=== PATIENT | female | born 1990 | race Caucasian/White ===

== ENCOUNTER 2019-04-14 21:39 | Emergency (ER) | payer BC, SELFPAY ==
[2019-04-14] MEDS ORDERED: KETOROLAC 30 MG/ML INJ ONE (22:02)
[2019-04-14] MEDS ORDERED: ONDANSETRON 4 MG/2 ML VIAL ONE (22:02)
[2019-04-14 22:12] LABS: Absolute Lymphocytes (CBC) 2.6 K/uL (0.7-4.9); Basophils % 0.4 % (0-1.3); Hematocrit 43.2 % (36.0-45.0); Lymphocytes % 17.7 % (15.3-44.8); RBC Red Blood Cell Count 4.83 M/uL (3.86-4.86)
[2019-04-14 22:22] LABS: Urine Appearance CLOUDY; Urine Bilirubin NEGATIVE (NEG); Urine Blood 3+ (NEG); Urine Glucose NEGATIVE (NEG); Urine Protein 3+ (NEG); Urine Specific Gravity 1.015 (1.005-1.030); Urine Urobilinogen 0.2 mg/dL (0.2-1.0)
[2019-04-14 22:23] LABS: Urine Color RED
[2019-04-14 22:28] LABS: Albumin 4.4 g/dL (3.4-5.0); Bilirubin Direct 0.1 mg/dL (0-0.2); Bilirubin Total 0.4 mg/dL (0.2-1.0); Potassium 3.7 mmol/L (3.5-5.1); Protein, Total 8.7 g/dL (6.4-8.2)
[2019-04-14 22:30] LABS: Urine Bacteria 20-50 /HPF (<20); Urine Culture Reflex Order REFLEXED; Urine RBC TNTC /HPF (NONE SEEN)
[2019-04-14 22:31] LABS: Urine Mucus 1+ /HPF (NONE SEEN)
[2019-04-14] MEDS ORDERED: NA CHLORIDE 0.9% 100 ML IV ONE (23:58)
[2019-04-14] MEDS ORDERED: CEFTRIAXONE 1000 MG/VIAL ONE (23:58)
--- NOTE | 2019-04-15 00:03 | ER ---
Nurse's Notes [facility] Name: Julisa Keller Age: 28 yrs Sex: Female : 1990 Arrival Date: 04/14/2019 Time: 21:44 Bed 5 Private MD: Diagnosis: Acute cystitis with hematuria Presentation: 04/14 22:00 Presenting complaint: Patient states: lower back pain, nausea and urinary frequency x 2 tl2 days. reports blood in urine. Denies fever. Transition of care: patient was not received from another setting of care. Onset of symptoms was April 12, 2019. Risk Assessment: Do you want to hurt yourself or someone else? Patient reports no desire to harm self or others. Initial Sepsis Screen: Does the patient meet any 2 criteria? No. Patient's initial sepsis screen is negative. Does the patient have a suspected source of infection? No. Patient's initial sepsis screen is negative. Care prior to arrival: None. 22:00 Method Of Arrival: Ambulatory tl2 22:00 Acuity: CHRISTI 3 tl2 Triage Assessment: 22:09 General: Appears in no apparent distress. uncomfortable, Behavior is calm, cooperative, tl2 appropriate for age. Pain: Complains of pain in left mid back and right mid back. Pain: Pain currently is 8 out of 10 on a pain scale. Neuro: Level of Consciousness is awake, alert, obeys commands, Oriented to person, place, time, situation. Cardiovascular: Denies chest pain. Respiratory: Airway is patent Respiratory effort is even, unlabored, Respiratory pattern is regular, symmetrical. GI: Reports nausea. : Reports urinary frequency. Derm: Skin is pink, warm \T\ dry. 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 - Social history:: Smoking status: Patient/guardian denies using tobacco. - Ebola Screening: : No symptoms or risks identified at this time. Screenin:12 Abuse screen: Denies threats or abuse. Nutritional screening: No deficits noted. tl2 Tuberculosis screening: No symptoms or risk factors identified. Fall Risk None identified. Assessment: 22:09 General: see triage assessment. tl2 23:26 Reassessment: Patient appears in no apparent distress at this time. Patient and/or tl2 family updated on plan of care and expected duration. Pain level reassessed. Patient is alert, oriented x 3, equal unlabored respirations, skin warm/dry/pink. Patient states feeling better. 04/15 00:53 Reassessment: Patient appears in no apparent distress at this time. Patient and/or tl2 family updated on plan of care and expected duration. Pain level reassessed. Patient is alert, oriented x 3, equal unlabored respirations, skin warm/dry/pink. pt verbalized understanding of discharge instructions, need for follow up and prescription usage Patient states feeling better. Vital Signs: 04/14 22:09 BP 124 / 77; Pulse 62; Resp 18; Pulse Ox 100% on R/A; Weight 74.84 kg; Height 5 ft. 4 tl2 in. (162.56 cm); Pain 8/10; 23:03 Temp 98.4(O); ar5 23:26 BP 117 / 61; Pulse 78; Resp 18; Pulse Ox 100% on R/A; tl2 04/15 00:53 BP 111 / 60; Pulse 71; Resp 18; Pulse Ox 100% on R/A; Pain 2/10; tl2 04/14 22:09 Body Mass Index 28.32 (74.84 kg, 162.56 cm) tl2 ED Course: 04/14 21:44 Patient arrived in ED. es 21:47 Ten Teixeira PA is PHCP. jr8 21:47 Laurent Ryder MD is Attending Physician. jr8 21:55 Pat Coffman RN is Primary Nurse. tl2 22:00 Inserted saline lock: 22 gauge in right forearm, using aseptic technique. Blood tl2 collected. 22:09 Triage completed. tl2 22:09 Arm band placed on right wrist. tl2 22:12 Patient has correct armband on for positive identification. Bed in low position. Call tl2 light in reach. Side rails up X 1. 22:38 Radiology exam delayed due to test not completed at this time. mw3 23:03 CT Abd/Pelvis - IV Contrast Only In Process Unspecified. EDMS 04/15 00:53 No provider procedures requiring assistance completed. IV discontinued, intact, tl2 bleeding controlled, No redness/swelling at site. Pressure dressing applied. Administered Medications: 04/14 22:05 Drug: TORadol - Ketorolac 15 mg Route: IVP; Site: right forearm; rv 23:00 Follow up: Response: No adverse reaction; Pain is decreased tl2 22:06 Drug: Zofran 4 mg Route: IVP; Site: right forearm; rv 23:00 Follow up: Response: No adverse reaction tl2 04/15 00:05 Drug: Rocephin - (cefTRIAXone) 2 grams Route: IVPB; Infused Over: 30 mins; Site: right tl2 forearm; 00:30 Follow up: IV Status: Completed infusion; IV Intake: 100ml tl2 Intake: 00:30 IV: 100ml; Total: 100ml. tl2 Outcome: 00:02 Discharge ordered by MD. toure 00:53 Discharged to home ambulatory. tl2 00:53 Condition: stable 00:53 Discharge instructions given to patient, Instructed on discharge instructions, follow up and referral plans. medication usage, Demonstrated understanding of instructions, follow-up care, medications, Prescriptions given X 2. 00:55 Patient left the ED. tl2 Signatures: Dispatcher [employer] EDMS Mariel Ya Josh, PA PA jr8 Pat Coffman RN RN tl2 Krissy Solorzano 3 Mario Stone RN RN Arianne Mckeon ar5
--- NOTE | 2019-04-15 00:03 | EDPHYS ---
Physician Documentation [facility] Name: Julisa Keller Age: 28 yrs Sex: Female : 1990 Arrival Date: 04/14/2019 Time: 21:44 Bed 5 Private MD: ED Physician Laurent Ryder HPI: 04/14 22:10 This 28 yrs old Female presents to ER via Ambulatory with complaints of jr8 Abdominal Pain, Flank Pain, Back Pain. 22:10 The patient presents with pain that is acute. The symptoms are located in the left mid jr8 back and right mid back. Onset: The symptoms/episode began/occurred acutely, today. The pain does not radiate. Associated signs and symptoms: Pertinent positives: dysuria. Modifying factors: The patient symptoms are alleviated by nothing, the patient symptoms are aggravated by nothing. Severity of symptoms: At their worst the symptoms were moderate, in the emergency department the symptoms are unchanged. The patient has not experienced similar symptoms in the past. The patient has not recently seen a physician. patient stated that she started with urgency and frequency for the past couple of days. Now had acute mid back pain bilaterally radiating to abdomen . 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 - Social history:: Smoking status: Patient/guardian denies using tobacco. - Ebola Screening: : No symptoms or risks identified at this time. ROS: 22:10 Eyes: Negative for injury, pain, redness, and discharge, ENT: Negative for injury, jr8 pain, and discharge, Neck: Negative for injury, pain, and swelling, Cardiovascular: Negative for chest pain, palpitations, and edema, Respiratory: Negative for shortness of breath, cough, wheezing, and pleuritic chest pain, MS/Extremity: Negative for injury and deformity, Skin: Negative for injury, rash, and discoloration, Neuro: Negative for headache, weakness, numbness, tingling, and seizure. 22:10 Abdomen/GI: Positive for abdominal pain, nausea, Negative for vomiting, diarrhea, constipation, abdominal cramps, abdominal distension, anorexia, dysphagia, hematemesis, black/tarry stool, rectal pain, rectal bleeding, bowel incontinence, flatulence. 22:10 Back: Positive for pain at rest, flank pain, bilaterally. Exam: 22:10 Eyes: Pupils equal round and reactive to light, extra-ocular motions intact. Lids and jr8 lashes normal. Conjunctiva and sclera are non-icteric and not injected. Cornea within normal limits. Periorbital areas with no swelling, redness, or edema. ENT: Nares patent. No nasal discharge, no septal abnormalities noted. Tympanic membranes are normal and external auditory canals are clear. Oropharynx with no redness, swelling, or masses, exudates, or evidence of obstruction, uvula midline. Mucous membranes moist. Neck: Trachea midline, no thyromegaly or masses palpated, and no cervical lymphadenopathy. Supple, full range of motion without nuchal rigidity, or vertebral point tenderness. No Meningismus. Cardiovascular: Regular rate and rhythm with a normal S1 and S2. No gallops, murmurs, or rubs. Normal PMI, no JVD. No pulse deficits. Respiratory: Lungs have equal breath sounds bilaterally, clear to auscultation and percussion. No rales, rhonchi or wheezes noted. No increased work of breathing, no retractions or nasal flaring. Back: No spinal tenderness. No costovertebral tenderness. Full range of motion. Skin: Warm, dry with normal turgor. Normal color with no rashes, no lesions, and no evidence of cellulitis. MS/ Extremity: Pulses equal, no cyanosis. Neurovascular intact. Full, normal range of motion. Neuro: Awake and alert, GCS 15, oriented to person, place, time, and situation. Cranial nerves II-XII grossly intact. Motor strength 5/5 in all extremities. Sensory grossly intact. Cerebellar exam normal. Normal gait. 22:10 Abdomen/GI: Inspection: abdomen appears normal, Bowel sounds: active, all quadrants, Palpation: soft, in all quadrants, nontender, in all quadrants, Indicators: McBurney's point is not tender, To's sign is negative, Rovsing's sign is negative, Liver: tenderness, is not appreciated. Vital Signs: 22:09 BP 124 / 77; Pulse 62; Resp 18; Pulse Ox 100% on R/A; Weight 74.84 kg; Height 5 ft. 4 tl2 in. (162.56 cm); Pain 8/10; 23:03 Temp 98.4(O); ar5 23:26 BP 117 / 61; Pulse 78; Resp 18; Pulse Ox 100% on R/A; tl2 04/15 00:53 BP 111 / 60; Pulse 71; Resp 18; Pulse Ox 100% on R/A; Pain 2/10; tl2 04/14 22:09 Body Mass Index 28.32 (74.84 kg, 162.56 cm) tl2 MDM: 04/14 21:47 Patient medically screened[address] [facility] 23:58 Data reviewed: vital signs, nurses notes, lab test result(s), radiologic studies, CT jr8 scan. Data interpreted: Pulse oximetry: on room air is 100 %. Interpretation: normal. Counseling: I had a detailed discussion with the patient and/or guardian regarding: the historical points, exam findings, and any diagnostic results supporting the discharge/admit diagnosis, lab results, radiology results, the need for outpatient follow up, a family practitioner, to return to the emergency department if symptoms worsen or persist or if there are any questions or concerns that arise at home. 04/14 21:54 Order name: Basic Metabolic Panel; Complete Time: 22:[address] [facility] 04/14 21:54 Order name: CBC with Diff; Complete Time: 22:[address] [facility] 04/14 21:54 Order name: Creatinine for Radiology; Complete Time: 22:[address] [facility] 04/14 21:54 Order name: Hepatic Function; Complete Time: 22:[address] [facility] 04/14 21:54 Order name: Lipase; Complete Time: 22:[address] [facility] 04/14 21:54 Order name: IV Saline Lock; Complete Time: 22:[address] [facility] 04/14 22:11 Order name: Urinalysis W/Microscopic; Complete Time: 22:35 [facility] 04/14 22:28 Order name: CT Abd/Pelvis - IV Contrast Only [facility] 04/14 22:32 Order name: Urine Culture [facility] 04/14 21:54 Order name: Labs collected and sent; Complete Time: 22:[address] [facility] 04/14 21:54 Order name: Urine Test (obtain specimen); Complete Time: 22:[address] [facility] 08/03 21:54 Order name: Urine Dipstick-Ancillary (obtain specimen); Complete Time: 22:07 jr8 Administered Medications: 22:05 Drug: TORadol - Ketorolac 15 mg Route: IVP; Site: right forearm; rv 23:00 Follow up: Response: No adverse reaction; Pain is decreased tl2 22:06 Drug: Zofran 4 mg Route: IVP; Site: right forearm; rv 23:00 Follow up: Response: No adverse reaction tl2 04/15 00:05 Drug: Rocephin - (cefTRIAXone) 2 grams Route: IVPB; Infused Over: 30 mins; Site: right tl2 forearm; 00:30 Follow up: IV Status: Completed infusion; IV Intake: 100ml tl2 Disposition: 04/15/19 00:02 Discharged to Home. Impression: Acute cystitis with hematuria. - Condition is Stable. - Discharge Instructions: Urinary Tract Infection, Adult. - Prescriptions for Pyridium 200 mg Oral Tablet - take 1 tablet by ORAL route every 8 hours for 3 days; 9 tablet. Macrobid 100 mg Oral Capsule - take 1 capsule by ORAL route every 12 hours for 7 days; 14 capsule. - Medication Reconciliation Form, Thank You Letter, Antibiotic Education, Prescription Opioid Use form. - Follow up: Private Physician; When: 2 - 3 days; Reason: Recheck today's complaints, Continuance of care, Re-evaluation by your physician. - Problem is new. - Symptoms have improved. Addendum: 04/16/2019 09:23 Co-signature as Attending Physician, Laurent Ryder MD I agree with the assessment and c capone plan of care. Signatures: Dispatcher [employer] Laurent Gutierrez MD MD cha Roszak, Josh, PA PA jr8 Pat Coffman RN RN tl2 Mario Stone, CAYETANO RN rv Corrections: (The following items were deleted from the chart) 04/14 22:11 22:04 URINALYSIS+U.LAB.BRZ ordered. [facility] 22:11 22:04 UA MICROSCOPIC+U.LAB.BRZ ordered. [facility] 04/15 00:55 00:02 04/15/2019 00:02 Discharged to Home. Impression: Acute cystitis with hematuria. tl2 Condition is Stable. Forms are Medication Reconciliation Form, Thank You Letter, Antibiotic Education, Prescription Opioid Use. Follow up: Private Physician; When: 2 - 3 days; Reason: Recheck today's complaints, Continuance of care, Re-evaluation by your physician. Problem is new. Symptoms have improved. jr8
--- NOTE | 2019-04-16 13:25 | RAD REPORT ---
EXAM DESCRIPTION: CT - Abdomen Pelvis W Contrast - 04/14/2019 11:44 pm CLINICAL HISTORY: The patient is 28 years old and is Female; ABD PAIN TECHNIQUE: Axial computed tomography images of the abdomen and pelvis with intravenous contrast. S agittal and coronal reformatted images were created and reviewed. This CT exam was performed using one or more of the following dose reduction techniques: automated exposure control, adjustment of t he mA and/or kV according to patient size, and/or use of iterative reconstruction technique. COMPARISON: No relevant prior studies available. FINDINGS: LUNG BASES: Unremarkable. No mass. No consolidation. ABDOMEN: LIVER: Unremarkable. No mass. GALLBLADDER AND BILE DUCTS: The gallbladder is contracted. PANCREAS: No ductal dilation. No mass. SPLEEN: Unremarkable. ADRENALS: Unremarkable. No mass. KIDNEYS AND URETERS: Mild urothelial thickening of both ureters is noted. The kidneys enhance symmetrically. No obstructing renal or ureteral calculus is seen. STOMACH AND BOWEL: The stomach is distended with food contents. The small bowel is normal in shola iber. Stool is present throughout colon. There is no mucosal thickening or evidence of bowel obstruct ion. PELVIS: APPENDIX: The appendix is normal in caliber without surrounding inflammation. BLADDER: Mild diffuse bladder wall thickening with surrounding inflammation is present. REPRODUCTIVE: Unremarkable as visualized. ABDOMEN and PELVIS: INTRAPERITONEAL SPACE: Unremarkable. No free air. No significant fluid collection. BONES/JOINTS: No acute fracture. SOFT TISSUES: The soft tissues are normal. VASCULATURE: Unremarkable. No abdominal aortic aneurysm. LYMPH NODES: Unremarkable. No enlarged lymph nodes. IMPRESSION: Findings suggestive of cystitis and bilateral ureteritis. Electronically signed by: Jessica Preciado MD 04/14/2019 11:24 PM CDT Due to temporary technical issues with the PACS/Fluency reporting system, reports are being signed by the in house radiologist as a courtesy to ensure prompt reporting. The interpreting radiologist is f ully responsible for the content of the report.
== END 2019-04-15 00:55 | disposition home or self-care (01) ==
LOC: ER 21:39
DX: N30.00 Acute cystitis without hematuria (principal)
CPT/HCPCS: 36415; 74177; 80048; 80076; 81001; 83690; 85025; 87077; 87086; 87088; 87186; 96365; 96375; 99284; J2405; Q9967

== ENCOUNTER 2020-05-23 08:36 | Emergency (ER) | payer OTHER, SELFPAY ==
--- OUTSIDE RECORDS SUMMARY | 2020-05-23 08:49 | XMS REPORT | Continuity of Care Document ---
:1990 Author Organization [facility] t Address [address] [place] [address] Care Team Providers Name Role Phone Brandy Nugent Attending Clinician Problems This patient has no known problems. Allergies, Adverse Reactions, Alerts This patient has no known allergies or adverse reactions. Medications This patient has no known medications. Procedures This patient has no known procedures. 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 [id number] MATERNAL [id number] & CHILD [address] [place] [address] Results This patient has no known results.
[2020-05-23] MEDS ORDERED: ACETAMINOPHEN 500 MG TAB ONE (10:10)
[2020-05-23] MEDS ORDERED: ONDANSETRON 4 MG (ODT) TAB ONE (10:10)
--- NOTE | 2020-05-23 10:15 | RAD REPORT ---
EXAM DESCRIPTION: CT - Head Brain Wo Cont - 05/23/2020 10:03 am CLINICAL HISTORY: HEADACHE Headache, drowsiness COMPARISON: No comparisons TECHNIQUE: All CT scans are performed using dose optimization technique as appropriate and may inclu de automated exposure control or mA/KV adjustment according to patient size. FINDINGS: No intracranial hemorrhage, hydrocephalus or extra-axial fluid collection.No areas of brai n edema or evidence of midline shift. The paranasal sinuses and mastoids are clear. The calvarium is intact. IMPRESSION: No acute intracranial abnormality.
--- NOTE | 2020-05-23 10:30 | ER ---
Nurse's Notes [facility] Name: Julisa Keller Age: 29 yrs Sex: Female : 1990 Arrival Date: 05/23/2020 Time: 08:42 Bed 19 Private MD: Diagnosis: Headache Presentation: 05/23 08:47 Chief complaint: Patient states: Woke up with R sided headache. Described as throbbing. ss Pt reports she took 800 mg Ibuprofen this morning, but vomited right after. Coronavirus screen: Client denies travel out of the [place] in the last 14 days. Ebola Screen: Patient denies exposure to infectious person. Patient denies travel to an Ebola-affected area in the 21 days before illness onset. Initial Sepsis Screen: Does the patient meet any 2 criteria? No. Patient's initial sepsis screen is negative. Does the patient have a suspected source of infection? No. Patient's initial sepsis screen is negative. Risk Assessment: Do you want to hurt yourself or someone else? Patient reports no desire to harm self or others. Onset of symptoms was May 23, 2020. 08:47 Method Of Arrival: Ambulatory ss 08:47 Acuity: CHRISTI 3 ss Historical: - Allergies: 08:50 No Known Allergies; ss - Home Meds: 08:50 None [Active]; ss - PMHx: 08:50 None; ss - PSHx: 08:50 None; ss - Immunization history:: Adult Immunizations unknown. - Social history:: Smoking status: Patient denies any tobacco usage or history of. Screenin:36 Abuse screen: Denies threats or abuse. Denies injuries from another. Nutritional ss screening: No deficits noted. Tuberculosis screening: Never had TB. Fall Risk None identified. Assessment: 09:36 General: Appears uncomfortable, Behavior is calm, cooperative, appears uncomfortable, ss but seems in good spirits. Is joking with ED staff.. Pain: Complains of pain in forehead, right frontal area, right side of the back of head and right temporal area Pain currently is 6 out of 10 on a pain scale. Quality of pain is described as throbbing, Pain began "woke me up this morning" Is continuous, Aggravated by light, leaning foward. Neuro: Level of Consciousness is awake, alert, obeys commands, Oriented to person, place, time, situation, Infant Nanny are equal bilaterally Moves all extremities. Full function Gait is steady, Speech is normal, Facial symmetry appears normal, Pupils are PERRLA, Denies blurred vision dizziness. Cardiovascular: Capillary refill < 3 seconds is brisk in bilateral fingers Patient's skin is warm and dry. Respiratory: Airway is patent Respiratory effort is even, unlabored, Respiratory pattern is regular, symmetrical. GI: Reports nausea, vomiting, vomit x 1 after self medicating with ibuprofen this AM Patient currently denies diarrhea. : No signs and/or symptoms were reported regarding the genitourinary system. EENT: Oral mucosa is moist. Derm: Skin is intact, is healthy with good turgor, Skin is dry, Skin is pink, warm \\T\\ dry. normal. Musculoskeletal: Range of motion: intact in all extremities. 10:02 Reassessment: Pt currently in CT. sv 10:50 Reassessment: Went to discharge the pt and she is asking for pain medication. States sv that the Tylenol hasn't worked and the headache is getting worse. Informed Laurent REA, medication ordered. 11:00 Reassessment: Pt waiting IM shot time before discharge. sv 11:20 Reassessment: Patient appears in no apparent distress at this time. No changes from sv previously documented assessment. Patient and/or family updated on plan of care and expected duration. Pain level reassessed. Patient is alert, oriented x 3, equal unlabored respirations, skin warm/dry/pink. Vital Signs: 08:47 BP 131 / 76; Pulse 74; Resp 16; Temp 98.5(TE); Pulse Ox 99% on R/A; Weight 102.06 kg; ss Height 5 ft. 4 in. (162.56 cm); Pain 6/10; 08:47 Body Mass Index 38.62 (102.06 kg, 162.56 cm) ED Course: 08:42 Patient arrived in ED. mr 08:49 Triage completed. ss 08:50 Arm band placed on right wrist. ss 09:34 Laurent Brar PA is PHCP. cp 09:34 Marcin Brothers MD is Attending Physician. cp 09:35 Julisa Da Silva RN is Primary Nurse. ss 09:36 Patient has correct armband on for positive identification. Bed in low position. Call ss light in reach. 10:02 Primary Nurse role handed off by Julisa D aSilva, CAYETANO sv 10:02 Sandra Rubio, CAYETANO is Primary Nurse. sv 10:04 CT Head Brain wo Cont In Process Unspecified. EDMS 11:20 No provider procedures requiring assistance completed. Patient did not have IV access sv during this emergency room visit. Administered Medications: 10:15 Drug: Zofran (Ondansetron) 4 mg Route: PO; sv 10:57 Follow up: Response: No adverse reaction sv 10:16 Drug: Tylenol 1000 mg Route: PO; sv 10:57 Follow up: Response: No adverse reaction sv 10:57 Drug: TORadol 60 mg Route: IM; Site: left gluteus; sv 11:20 Follow up: Response: No adverse reaction sv Outcome: 10:29 Discharge ordered by MD. cp 11:20 Patient left the ED. sv 11:20 Discharged to home ambulatory. sv 11:20 Condition: stable 11:20 Discharge instructions given to patient, Instructed on discharge instructions, follow up and referral plans. medication usage, Demonstrated understanding of instructions, follow-up care, medications, Prescriptions given X 2. Signatures: Dispatcher [employer] EDPR Sandra Rubio, CAYETANO MONTEIRO Mariangel Hearn mr Julisa Da Silva, Laurent De La Torre RN, PA PA cp
--- NOTE | 2020-05-23 10:30 | EDPHYS ---
Physician Documentation [facility] Name: Julisa Keller Age: 29 yrs Sex: Female : 1990 Arrival Date: 05/23/2020 Time: 08:42 Bed 19 Private MD: ED Physician Marcin Brothers HPI: 05/23 09:45 This 29 yrs old Female presents to ER via Ambulatory with complaints of cp Headache. 09:45 The patient complains of pain to the right side of head. Onset: The symptoms/episode cp began/occurred this morning, upon awakening. Associated signs and symptoms: Pertinent positives: nausea, Photophobia vomiting, tingling of hands. 09:45 Severity of symptoms: in the emergency department the pain a " 7" out of "10". cp Historical: - Allergies: 08:50 No Known Allergies; ss - Home Meds: 08:50 None [Active]; ss - PMHx: 08:50 None; ss - PSHx: 08:50 None; ss - Immunization history:: Adult Immunizations unknown. - Social history:: Smoking status: Patient denies any tobacco usage or history of. ROS: 09:50 Constitutional: Negative for body aches, chills, fever, poor PO intake. cp 09:50 Eyes: Positive for photophobia, Negative for pain, redness. cp 09:50 ENT: Negative for ear pain, sinus congestion, sinus pain, sore throat, difficulty swallowing, difficulty handling secretions. 09:50 Neck: Negative for pain with movement, pain at rest, stiffness. 09:50 Cardiovascular: Negative for chest pain. 09:50 Respiratory: Negative for cough, shortness of breath, wheezing. 09:50 Abdomen/GI: Positive for nausea, vomiting, Negative for abdominal pain, constipation. 09:50 Skin: Negative for rash. 09:50 Neuro: Positive for tingling, of the right hand and left hand. 09:50 All other systems are negative. Exam: 09:55 Constitutional: The patient appears in no acute distress, alert, awake, non-toxic, well cp developed, well nourished. 09:55 Head/Face: Normocephalic, atraumatic. cp 09:55 Eyes: Periorbital structures: appear normal, Pupils: equal, round, and reactive to light and accomodation, Extraocular movements: intact throughout, Conjunctiva: normal, no exudate, no injection, Sclera: no appreciated abnormality, Lids and lashes: appear normal, bilaterally. 09:55 ENT: External ear(s): are unremarkable, Ear canal(s): are normal, clear, TM's: dullness, bilaterally, Nose: is normal, Posterior pharynx: Airway: no evidence of obstruction, patent. 09:55 Neck: ROM/movement: is normal, is supple, without pain, no range of motions limitations, no meningismus. 09:55 Chest/axilla: Inspection: normal. 09:55 Cardiovascular: Rate: normal, Rhythm: regular. 09:55 Respiratory: the patient does not display signs of respiratory distress, Respirations: normal, no use of accessory muscles, no retractions, labored breathing, is not present, Breath sounds: are clear throughout, no decreased breath sounds. 09:55 Abdomen/GI: Exam negative for discomfort, distension, guarding, Inspection: abdomen appears normal. 09:55 Skin: no rash present. 09:55 Neuro: Orientation: to person, place \\T\\ time. Mentation: is normal, Cerebellar function: is grossly normal, Motor: moves all fours, strength is normal, Sensation: no obvious gross deficits. Vital Signs: 08:47 BP 131 / 76; Pulse 74; Resp 16; Temp 98.5(TE); Pulse Ox 99% on R/A; Weight 102.06 kg; ss Height 5 ft. 4 in. (162.56 cm); Pain 6/10; 08:47 Body Mass Index 38.62 (102.06 kg, 162.56 cm) ss MDM: 09:34 Patient medically screened. cp 10:00 Differential diagnosis: intracerebral hemorrhage, migraine, sinusitis, subarachnoid cp bleed, tension headache. 10:28 Data reviewed: vital signs, nurses notes, radiologic studies, CT scan, and as a result, cp I will discharge patient. 10:28 Counseling: I had a detailed discussion with the patient and/or guardian regarding: the cp historical points, exam findings, and any diagnostic results supporting the discharge/admit diagnosis, radiology results, to return to the emergency department if symptoms worsen or persist or if there are any questions or concerns that arise at home. Response to treatment: the patient's symptoms have mildly improved after treatment, and as a result, I will discharge patient. 05/23 09:50 Order name: CT Head Brain wo Cont; Complete Time: 10:16 05/23 10:16 Interpretation: Report reviewed. cp Administered Medications: 10:15 Drug: Zofran (Ondansetron) 4 mg Route: PO; sv 10:57 Follow up: Response: No adverse reaction sv 10:16 Drug: Tylenol 1000 mg Route: PO; sv 10:57 Follow up: Response: No adverse reaction sv 10:57 Drug: TORadol 60 mg Route: IM; Site: left gluteus; sv 11:20 Follow up: Response: No adverse reaction sv Disposition: 10:45 Chart complete. cp 16:19 Co-signature as Attending Physician, Marcin Brothers MD I agree with the assessment ma2 and plan of care. Disposition: 05/23/20 10:29 Discharged to Home. Impression: Headache. - Condition is Stable. - Discharge Instructions: General Headache Without Cause, Migraine Headache. - Prescriptions for Imitrex 50 mg Oral Tablet - take 1 tablet by ORAL route one time - x 1 dose with fluids as early as possible after the onset of a migraine attack; if headache returns, the dose may be repeated after 2 hours, not to exceed a total daily dose of 4 tablets;. Zofran 4 mg Oral Tablet - take 1 tablet by ORAL route every 12 hours As needed; 20 tablet. - Medication Reconciliation Form, Thank You Letter, Antibiotic Education, Prescription Opioid Use form. - Follow up: Private Physician; When: 1 - 2 days; Reason: Worsening of condition. - Problem is new. - Symptoms have improved. Signatures: Dispatcher [employer] Sandra Berumen RN RN sv Smirch, Shelby, RN RN ss Page, Corey, PA PA cp Alzahri, Mohammad, MD MD ma2 Corrections: (The following items were deleted from the chart) 11: 10:29 05/23/2020 10:29 Discharged to Home. Impression: Headache. Condition is Stable. sv Forms are Medication Reconciliation Form, Thank You Letter, Antibiotic Education, Prescription Opioid Use. Follow up: Private Physician; When: 1 - 2 days; Reason: Worsening of condition. Problem is new. Symptoms have improved. cp
[2020-05-23] MEDS ORDERED: KETOROLAC 30 MG/ML INJ ONE (11:06)
[2020-05-23 11:25] VITALS: BP 131/76; TEMP 98.5; O2SAT 99
== END 2020-05-23 11:20 | disposition home or self-care (01) ==
LOC: ER 08:36
DX: R51 Headache (principal)
CPT/HCPCS: 70450; 96372; 99283

== ENCOUNTER 2020-11-08 04:07 | Emergency (ER) | payer OTHER, SELFPAY ==
--- OUTSIDE RECORDS SUMMARY | 2020-11-08 04:09 | XMS REPORT | Continuity of Care Document ---
:1990 Author Organization [facility] t Address [address] [place] [address] Care Team Providers Name Role Phone Brandy [...] 2019-10-15 2019-10-15 Telephone KENDRA Brito [id number] 00:00:00 00:00:00 Bridgette Nava RETAIL VISUAL MERCHANDISER [id number] [facility] [id number] MATERNAL [phone] & CHILD [address] [place] [address] Results This patient has no known results.
[2020-11-08 04:48] LABS: Absolute Lymphocytes (CBC) 2.3 K/uL (0.7-4.9); Basophils % 0.7 % (0-1.3); Hematocrit 41.5 % (36.0-45.0); Lymphocytes % 30.8 % (15.3-44.8); MPV 7.4 fL (7.6-11.3); RBC Red Blood Cell Count 4.77 M/uL (3.86-4.86)
[2020-11-08 04:49] LABS: Urine Appearance CLEAR; Urine Blood NEGATIVE (NEG); Urine Color DK YELLOW; Urine Glucose NEGATIVE (NEG); Urine Protein NEGATIVE (NEG); Urine Specific Gravity >=1.030 (1.005-1.030); Urine pH 5.5 (5.0-7.0)
[2020-11-08 04:55] LABS: Urine Bilirubin NEG (NEG); Urine Microscopic Reflex NO UMIC
[2020-11-08 05:04] LABS: Albumin 4.4 g/dL (3.4-5.0); Bilirubin Total 0.9 mg/dL (0.2-1.0); Potassium 3.5 mmol/L (3.5-5.1); Protein, Total 8.1 g/dL (6.4-8.2)
--- NOTE | 2020-11-08 05:41 | EDPHYS ---
Physician Documentation [facility] Name: Julisa Keller Age: 29 yrs Sex: Female : 1990 Arrival Date: 11/08/2020 Time: 04:10 Bed 19 Private MD: ED Physician Dillon Diallo HPI: 11/08 04:25 This 29 yrs old Female presents to ER via Ambulatory with complaints of ps1 Shortness Of Breath, Back Pain. 04:25 patient has had hot and cold flashes for the last week. Additionally may have a ps1 retained tampon. Has significant anxiety. Additionally has cough, shortness of breath. COVID is prevalent in the community. . HRBP: 04:58 LMP 11/01/2020 sf Historical: - Allergies: 04:20 No Known Allergies; mg2 - Home Meds: 05:03 Nexplanon every 4 years for Family Planning [Active]; sf - PMHx: 04:20 Anxiety; mg2 - PSHx: 04:20 None; mg2 - Immunization history:: Adult Immunizations not up to date. - Social history:: Smoking status: Patient denies any tobacco usage or history of. ROS: 04:25 Eyes: Negative for injury, pain, redness, and discharge, ENT: Negative for injury, ps1 pain, and discharge, Cardiovascular: Negative for chest pain, palpitations, and edema, Abdomen/GI: Negative for abdominal pain, nausea, vomiting, diarrhea, and constipation, MS/Extremity: Negative for injury and deformity, Skin: Negative for injury, rash, and discoloration, Neuro: Negative for headache, weakness, numbness, tingling, and seizure. 04:25 Constitutional: Positive for chills, fatigue, fever. 04:25 Respiratory: Positive for cough, shortness of breath. Exam: 04:25 Constitutional: This is a well developed, well nourished patient who is awake, alert, ps1 and in no acute distress. Head/Face: Normocephalic, atraumatic. Eyes: Pupils equal round and reactive to light, extra-ocular motions intact. Lids and lashes normal. Conjunctiva and sclera are non-icteric and not injected. Cardiovascular: Regular rate and rhythm. No gallops, murmurs, or rubs. Normal PMI, no JVD. No pulse deficits. Respiratory: Lungs have equal breath sounds bilaterally, clear to auscultation and percussion. No rales, rhonchi or wheezes noted. No increased work of breathing, no retractions or nasal flaring. Abdomen/GI: Soft, non-tender, with normal bowel sounds. No distension or tympany. No guarding or rebound. No evidence of tenderness throughout. Skin: Warm, dry with normal turgor. Normal color with no rashes, no lesions, and no evidence of cellulitis. MS/ Extremity: Pulses equal, no cyanosis. Neurovascular intact. Full, normal range of motion. Neuro: Awake and alert, GCS 15, oriented to person, place, time, and situation. Cranial nerves II-XII grossly intact. Sensory grossly intact. 05:13 : Pelvic Exam: External exam: is normal, Speculum exam: normal findings, the nurse ps1 was present for the exam. Vital Signs: 04:16 BP 138 / 92; Pulse 92; Resp 18; Temp 98.9; Pulse Ox 99% ; ea 04:19 Weight 92.99 kg (M); Height 5 ft. 4 in. (162.56 cm); sf 05:00 BP 110 / 72; Pulse 67; Resp 16; Pulse Ox 98% ; sf 06:00 BP 118 / 62; Pulse 60; Resp 16; Pulse Ox 100% ; sf 04:19 Body Mass Index 35.19 (92.99 kg, 162.56 cm) MDM: 04:58 Patient medically screened. ps1 06:12 Data reviewed: vital signs, nurses notes, radiologic studies, and as a result, I will ps1 discharge patient. Counseling: I had a detailed discussion with the patient and/or guardian regarding: the historical points, exam findings, and any diagnostic results supporting the discharge/admit diagnosis, lab results, radiology results, the need for outpatient follow up, to return to the emergency department if symptoms worsen or persist or if there are any questions or concerns that arise at home. 11/08 04:28 Order name: CBC with Diff ea 11/08 04:28 Order name: CMP ea 11/08 04:28 Order name: UA; Complete Time: 04:58 ea 11/08 04:28 Order name: CBC with Automated Diff; Complete Time: 04:58 EDWI 11/08 04:29 Order name: Comprehensive Metabolic Panel; Complete Time: 05:14 EDMS 11/08 05:34 Order name: SARS-COV-2 RT PCR; Complete Time: 05:40 EDWI 11/08 05:41 Order name: CXR XRAY ps1 Administered Medications: No medications were administered Disposition: 11/08/20 05:41 Discharged to Home. Impression: Viral URI. - Condition is Stable. - Discharge Instructions: Upper Respiratory Infection, Adult. - Prescriptions for Tessalon Perles 100 mg Oral Capsule - take 1 capsule by ORAL route every 8 hours As needed; 15 capsule. - Medication Reconciliation Form, Thank You Letter, Antibiotic Education, Prescription Opioid Use form. - Follow up: Private Physician; When: As needed; Reason: Further diagnostic work-up, Recheck today's complaints. - Problem is new. - Symptoms are unchanged. Signatures: Dispatcher [employer] [facility] Rachana Tinoco RN RN ea Dillon Diallo MD MD ps1 Juma Goss RN RN mg2 Trevor Alvarado RN RN sf Corrections: (The following items were deleted from the chart) 04:44 04:29 CORONAVIRUS+MR.LAB.BRZ ordered. [facility] 06:59 05:41 11/08/2020 05:41 Discharged to Home. Impression: Viral URI. Condition is Stable. ea Forms are Medication Reconciliation Form, Thank You Letter, Antibiotic Education, Prescription Opioid Use. Follow up: Private Physician; When: As needed; Reason: Further diagnostic work-up, Recheck today's complaints. Problem is new. Symptoms are unchanged. ps1
--- NOTE | 2020-11-08 05:41 | ER ---
Nurse's Notes [facility] Name: Julisa Keller Age: 29 yrs Sex: Female : 1990 Arrival Date: 11/08/2020 Time: 04:10 Bed 19 Private MD: Diagnosis: Viral URI Presentation: 11/08 04:16 Chief complaint: Patient states: For about a week now I have been having shortness of mg2 breath and pain under my breast, like my diaphragm I guess. I had burning to my back, that comes and goes, so Im not really sure if its my kidneys acting up again. I also have really bad anxiety, but I know how my anxiety is so I just stayed home and see if i could shake this but I just cant. I also am not really sure if I may have a tampon still in me or not, I normally dont use them but Im pretty sure I took the tampon out and I just dont remember doing it. Coronavirus screen: Client denies travel out of the [place] in the last 14 days. At this time, the client does not indicate any symptoms associated with coronavirus-19. Ebola Screen: Patient negative for fever greater than or equal to 101.5 degrees Fahrenheit, and additional compatible Ebola Virus Disease symptoms Patient denies exposure to infectious person. Patient denies travel to an Ebola-affected area in the 21 days before illness onset. No symptoms or risks identified at this time. Initial Sepsis Screen: Does the patient meet any 2 criteria? HR > 90 bpm. No. Patient's initial sepsis screen is negative. Does the patient have a suspected source of infection? No. Patient's initial sepsis screen is negative. Risk Assessment: Do you want to hurt yourself or someone else? Patient reports no desire to harm self or others. Onset of symptoms was November 08, 2020. Care prior to arrival: None. Transition of care: patient was not received from another setting of care. 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 - Social history:: Smoking status: Patient denies any tobacco usage or history of. Screenin:18 Abuse screen: Denies threats or abuse. Nutritional screening: No deficits noted. ea Tuberculosis screening: No symptoms or risk factors identified. Fall Risk None identified. Assessment: 04:20 General: Appears in no apparent distress. comfortable, Behavior is calm, cooperative. sf Pain: Complains of pain in back and abdomen. Neuro: No deficits noted. Level of Consciousness is awake, alert, Oriented to person, place, time, situation, Appropriate for age. Cardiovascular: Patient's skin is warm and dry. Rhythm is regular. Respiratory: Reports shortness of breath Airway is patent Respiratory effort is even, unlabored, Respiratory pattern is regular, symmetrical, Breath sounds are clear. 04:20 : Reports Possible tampon "lost in vagina". sf 06:57 Reassessment: Patient and/or family updated on plan of care and expected duration. Pain ea level reassessed. Patient is alert, oriented x 3, equal unlabored respirations, skin warm/dry/pink. Discharge instruction given to patient verbalized the understanding of instruction. Pt left ED ambulatory tolerating well. Vital Signs: 04:16 BP 138 / 92; Pulse 92; Resp 18; Temp 98.9; Pulse Ox 99% ; ea 04:19 Weight 92.99 kg (M); Height 5 ft. 4 in. (162.56 cm); sf 05:00 BP 110 / 72; Pulse 67; Resp 16; Pulse Ox 98% ; sf 06:00 BP 118 / 62; Pulse 60; Resp 16; Pulse Ox 100% ; sf 04:19 Body Mass Index 35.19 (92.99 kg, 162.56 cm) sf ED Course: 04:10 Patient arrived in ED. cl3 04:11 Trevor Alvarado RN is Primary Nurse. sf 04:12 Dillon Diallo MD is Attending Physician. ps1 04:18 Patient has correct armband on for positive identification. Bed in low position. Call ea light in reach. 04:18 Arm band placed on right wrist. Patient placed in an exam room, on a stretcher, on ea pulse oximetry. 04:19 Triage completed. mg2 04:20 COVID swab sent to lab. sf 04:25 Initial lab(s) drawn, by me, sent to lab. Inserted saline lock: 20 gauge in right sf forearm, using aseptic technique. Blood collected. 04:30 Urine collected: clean catch specimen, clear. sf 04:58 CMP Sent. sf 04:58 CBC with Diff Sent. sf 05:12 Assist provider with pelvic exam: Performed by Dillon Diallo MD Patient tolerated sf well. Assisted by CAYETANO Reich. 06:04 Door closed. Noise minimized. Visitors limited. Warm blanket given. sf 06:09 CXR XRAY Sent. sf 06:15 CXR XRAY In Process Unspecified. EDMS 06:50 IV discontinued, intact, bleeding controlled, No redness/swelling at site. Pressure ea dressing applied. Administered Medications: No medications were administered Outcome: 05:41 Discharge ordered by . ps1 06:58 Discharged to home ambulatory, with family. ea 06:58 Condition: stable 06:58 Discharge instructions given to patient, Instructed on discharge instructions, follow up and referral plans. medication usage, Demonstrated understanding of instructions, follow-up care, medications, Prescriptions given X 1. 06:59 Patient left the ED. ea Signatures: Dispatcher [employer] EDMS Rachana Tinoco RN RN ea Singer, Phillip, MD MD ps1 Juma Goss RN RN mg2 Chiquita Deluca cl3 Trevor Alvarado RN RN Corrections: (The following items were deleted from the chart) 04:24 04:20 Neuro: No deficits noted. Level of Consciousness is awake, alert, Oriented to sf person, place, time, situation, Appropriate for age sf 04:42 04:19 103.42 kg; Height 5 ft. 4 in.; BMI: 39.1; sf sf
--- NOTE | 2020-11-08 11:03 | RAD REPORT ---
EXAM DESCRIPTION: RAD - Chest Single View - 11/08/2020 6:15 am CLINICAL HISTORY: COUGH Chest pain. COMPARISON: No comparisons FINDINGS: Portable technique limits examination quality. The lungs are grossly clear. The heart is normal in size. No displaced fractures. IMPRESSION: No acute intrathoracic process suspected.
== END 2020-11-08 06:59 | disposition home or self-care (01) ==
LOC: ER 04:07
DX: J06.9 Acute upper respiratory infection, unspecified (principal); Z20.822 Contact with and (suspected) exposure to COVID-19
CPT/HCPCS: 36415; 71045; 80053; 81003; 85025; 99284; U0003

== ENCOUNTER 2020-12-06 10:21 | Emergency (ER) | payer SELFPAY ==
--- OUTSIDE RECORDS SUMMARY | 2020-12-06 10:24 | XMS REPORT | Continuity of Care Document ---
:1990 Author Organization [facility] t Address [address] [place] [address] Care Team Providers Name Role Phone Terence Gonzales DO Attending Clinician Brandy Nugent Attending Clinician Problems This patient has no known problems. Allergies, Adverse Reactions, Alerts This patient has no known allergies or adverse reactions. Medications This patient has no known medications. Procedures This patient has no known procedures. Encounters Start End Encounter Admission Attending Care Care Encounter Source Date/Time Date/Time Type Type Clinicians Facility Department ID 2020-12-02 2020-12-02 Patient KENDRA Gonzales [id number] 00:00:00 00:00:00 Outreach [facility] [id number] Terence [facility] [id number] PAVILLION [id number] 2020-11-11 2020-11-11 Office KENDRA Brito [id number] 09:30:16 10:44:41 Visit Bridgette Nava ENGINEERING PROGRAM MANAGER [id number] [facility] [id number] MATERNAL [phone] & CHILD [address] [place] [address] Results This patient has no known results.
--- NOTE | 2020-12-06 11:34 | RAD REPORT ---
EXAM DESCRIPTION: CT - Soft Tissue Neck W/Contr - 12/06/2020 11:20 am CLINICAL HISTORY: Neck pain with sore throat COMPARISON: None. TECHNIQUE: Computed axial tomography of the neck was obtained. 50 cc Isovue 300 was administered in travenously. Coronal and sagittal reconstruction was performed. All CT scans are performed using dose optimization technique as appropriate and may include automated exposure control or mA/KV adjustment according to patient size. FINDINGS: The pharynx, tongue base, larynx and subglottic trachea appear unremarkable The parotid, submandibular and thyroid glands appear unremarkable. No lymphadenopathy is seen The sinuses and mastoids are clear. IMPRESSION: No acute abnormality is displayed
[2020-12-06 11:46] LABS: BUN Blood Urea Nitrogen 4 mg/dL (7-18); Bicarbonate 27 mmol/L (21-32); Glucose Level 91 mg/dL (74-106); Potassium 4.1 mmol/L (3.5-5.1); Sodium Level 139 mmol/L (136-145)
[2020-12-06 11:51] LABS: Basophils % 0.8 % (0-1.3); Hematocrit 42.8 % (36.0-45.0); Lymphocytes % 28.8 % (15.3-44.8); MPV 7.5 fL (7.6-11.3); RBC Red Blood Cell Count 4.86 M/uL (3.86-4.86)
[2020-12-06] MEDS ORDERED: MAGNES/ALUMIN/SIMET 30ML UCUP ONE (12:00)
[2020-12-06] MEDS ORDERED: LIDOCAINE VISCOUS 2% SOLN 15 ML UDC ONE (12:00)
--- NOTE | 2020-12-06 12:01 | EDPHYS ---
Physician Documentation [facility] Name: Julisa Keller Age: 30 yrs Sex: Female : 1990 Arrival Date: 12/06/2020 Time: 10:25 Bed 5 Private MD: ED Physician Maurice Gleason HPI: 12/06 10:55 This 30 yrs old Female presents to ER via Ambulatory with complaints of pm1 Throat problem. 10:55 The patient presents with sore throat, a foreign body sensation in the throat. The pm1 patient describes throat pain as burning, scratchy. Onset: The symptoms/episode began/occurred 3 week(s) ago. Severity of symptoms: in the emergency department the symptoms are unchanged. Modifying factors: the symptoms are aggravated by foods, Denies contact with similarly ill indivduals. Associated signs and symptoms: Pertinent positives: cough, Pertinent negatives diarrhea, fever, nausea, vomiting. The patient has not experienced similar symptoms in the past. The patient has not recently seen a physician, and does not have an established primary care provider. Historical: - Allergies: 10:36 No Known Allergies; ll1 - Home Meds: 11:07 nexplanon every 4 years for Family Planning [Active]; hb - PMHx: 10:36 Anxiety; ll1 - PSHx: 10:36 None; ll1 - Immunization history:: Flu vaccine is not up to date. - Social history:: Smoking status: Patient denies any tobacco usage or history of. ROS: 10:55 Constitutional: Negative for fever, chills, and weight loss, Eyes: Negative for injury, pm1 pain, redness, and discharge. 10:55 Cardiovascular: Negative for chest pain, palpitations, and edema. 10:55 Abdomen/GI: Negative for abdominal pain, nausea, vomiting, diarrhea, and constipation, Back: Negative for injury and pain, : Negative for injury, bleeding, discharge, and swelling, MS/Extremity: Negative for injury and deformity, Skin: Negative for injury, rash, and discoloration. 10:55 ENT: Positive for sore throat, Negative for ear pain, difficulty swallowing, difficulty handling secretions, hoarseness. 10:55 Respiratory: Positive for cough, occasionally, Negative for shortness of breath. 10:55 Neuro: Positive for sensation of numbness around her mouth. 10:55 Psych: Positive for anxiety. Exam: 10:55 Constitutional: This is a well developed, well nourished patient who is awake, alert, pm1 and in no acute distress. Head/Face: Normocephalic, atraumatic. 10:55 Skin: Warm, dry with normal turgor. Normal color with no rashes, no lesions, and no evidence of cellulitis. MS/ Extremity: Pulses equal, no cyanosis. Neurovascular intact. Full, normal range of motion. 10:55 ENT: External ear(s): are unremarkable, Ear canal(s): are normal, TM's: are normal, Posterior pharynx: is normal, airway is patent, no erythema, no exudate, no peritonsilar mass, no pooling of secretions, no swelling. 10:55 Cardiovascular: Exam negative for acute changes, Rate: normal, Rhythm: regular, Pulses: no pulse deficits are appreciated. 10:55 Respiratory: Exam negative for acute changes, respiratory distress, shortness of breath. 10:55 Abdomen/GI: Exam negative for acute changes, Inspection: abdomen appears normal, Palpation: abdomen is soft and non-tender, in all quadrants. 10:55 Neuro: Exam negative for acute changes, Orientation: is normal, Mentation: is normal, Motor: is normal, moves all fours. Vital Signs: 10:36 BP 125 / 91; Pulse 78; Resp 17; Temp 98.9; Pulse Ox 97% on R/A; Weight 92.99 kg; Height ll1 5 ft. 5 in. (165.10 cm); Pain 0/10; 10:36 Body Mass Index 34.11 (92.99 kg, 165.10 cm) ll1 MDM: 10:50 Patient medically screened. pm1 11:59 Data reviewed: vital signs. Data interpreted: Pulse oximetry: on room air is 97 %. pm1 Interpretation: normal. 11:59 Counseling: I had a detailed discussion with the patient and/or guardian regarding: the pm1 historical points, exam findings, and any diagnostic results supporting the discharge/admit diagnosis, lab results, radiology results, the need for outpatient follow up, for definitive care, an ENT specialist, a buffer machine, to return to the emergency department if symptoms worsen or persist or if there are any questions or concerns that arise at home. 12/06 10:50 Order name: Strep; Complete Time: 11:34 pm1 12/06 10:50 Order name: BMP; Complete Time: 11:51 pm1 12/06 10:50 Order name: CT Soft Tissue Neck W/contr; Complete Time: 11:34 pm1 12/06 10:50 Order name: CBC with Diff; Complete Time: 11:59 pm1 12/06 11:27 Order name: Throat Culture [facility] 12/06 10:50 Order name: IV Saline Lock; Complete Time: 11:05 pm1 Administered Medications: 11:45 Drug: GI Cocktail without - (Maalox Suspension 30 ml, Lidocaine Liquid 2 % 15 sv ml) Route: PO; 12:23 Follow up: Response: No adverse reaction sv Disposition: 12:50 Co-signature as Attending Physician, Maurice Gleason MD. rn Disposition: 12/06/20 12:00 Discharged to Home. Impression: Acute pharyngitis. - Condition is Stable. - Discharge Instructions: Food Choices for Gastroesophageal Reflux Disease, Adult, Gastroesophageal Reflux Disease, Adult, Pharyngitis. - Prescriptions for Pepcid 20 mg Oral Tablet - take 1 tablet by ORAL route every 12 hours for 10 days; 20 tablet. - Medication Reconciliation Form, Thank You Letter, Antibiotic Education, Prescription Opioid Use, Work release form form. - Follow up: Emergency Department; When: As needed; Reason: Worsening of condition. Follow up: Private Physician; When: 2 - 3 days; Reason: Recheck today's complaints, Continuance of care, Re-evaluation by your physician. - Problem is new. - Symptoms have improved. Signatures: Dispatcher [employer] Sandra Berumen RN RN sv Nieto, Roman, MD MD rn Marinas, Patrick, CARLO FINANCIAL REPORTING CONSULTANT pm1 Shirin Jara RN RN hb Lewis, Lynsay RN RN ll1 Corrections: (The following items were deleted from the chart) 12:24 12:00 12/06/2020 12:00 Discharged to Home. Impression: Acute pharyngitis. Condition is sv Stable. Forms are Medication Reconciliation Form, Thank You Letter, Antibiotic Education, Prescription Opioid Use. Follow up: Emergency Department; When: As needed; Reason: Worsening of condition. Follow up: Private Physician; When: 2 - 3 days; Reason: Recheck today's complaints, Continuance of care, Re-evaluation by your physician. Problem is new. Symptoms have improved. pm1
--- NOTE | 2020-12-06 12:01 | ER ---
Nurse's Notes [facility] Name: Julisa Keller Age: 30 yrs Sex: Female : 1990 Arrival Date: 12/06/2020 Time: 10:25 Bed 5 Private MD: Diagnosis: Acute pharyngitis Presentation: 12/06 10:36 Chief complaint: Patient states: Felling like something is in throat, clearing throat a ll1 lot for 3 weeks. No fever, slight dry cough. GONZALES off/on. No N/.V/D. Coronavirus screen: Client denies travel out of the [place] in the last 14 days. sore throat, Client presents with at least one sign or symptom that may indicate coronavirus-19. Standard/surgical mask placed on the client. Ebola Screen: Patient denies travel to an Ebola-affected area in the 21 days before illness onset. Initial Sepsis Screen: Does the patient meet any 2 criteria? No. Patient's initial sepsis screen is negative. Does the patient have a suspected source of infection? Yes: Other: throat. Risk Assessment: Do you want to hurt yourself or someone else? Patient reports no desire to harm self or others. Onset of symptoms was November 15, 2020. 10:36 Method Of Arrival: Ambulatory ll1 10:36 Acuity: CHRISTI 4 ll1 Historical: - Allergies: 10:36 No Known Allergies; ll1 - Home Meds: 11:07 nexplanon every 4 years for Family Planning [Active]; hb - PMHx: 10:36 Anxiety; ll1 - PSHx: 10:36 None; ll1 - Immunization history:: Flu vaccine is not up to date. - Social history:: Smoking status: Patient denies any tobacco usage or history of. Screenin:41 Abuse screen: Denies threats or abuse. Denies injuries from another. Nutritional sv screening: No deficits noted. Tuberculosis screening: No symptoms or risk factors identified. Fall Risk None identified. Assessment: 11:00 General: Appears in no apparent distress. Behavior is calm, cooperative. Pain: Pain hb currently is 0 out of 10 on a pain scale. at worst was 6 out of 10 on a pain scale. Neuro: Level of Consciousness is awake, alert, obeys commands, Oriented to person, place, time, situation. Cardiovascular: Patient's skin is warm and dry. Respiratory: Respiratory effort is even, unlabored, Respiratory pattern is regular, symmetrical. GI: No signs and/or symptoms were reported involving the gastrointestinal system. : No signs and/or symptoms were reported regarding the genitourinary system. EENT: Reports difficulty swallowing. Derm: Skin is pink, warm \T\ dry. Musculoskeletal: No signs and/or symptoms reported regarding the musculoskeletal system. 12:23 Reassessment: Patient appears in no apparent distress at this time. No changes from sv previously documented assessment. Patient and/or family updated on plan of care and expected duration. Pain level reassessed. Patient is alert, oriented x 3, equal unlabored respirations, skin warm/dry/pink. Vital Signs: 10:36 BP 125 / 91; Pulse 78; Resp 17; Temp 98.9; Pulse Ox 97% on R/A; Weight 92.99 kg; Height ll1 5 ft. 5 in. (165.10 cm); Pain 0/10; 10:36 Body Mass Index 34.11 (92.99 kg, 165.10 cm) ll1 ED Course: 10:25 Patient arrived in ED. mr 10:[address], ARTISTIC ASSOCIATE is PHCP. pm1 10:32 Maurice Gleason MD is Attending Physician. pm1 10:36 Arm band placed on Patient placed in an exam room, on a stretcher. ll1 10:38 Triage completed. ll1 10:41 Sandra Rubio, CAYETANO is Primary Nurse. sv 10:41 Nurse Practitioner and/or Physician Ski Lift Operator to see patient. sv 10:41 Patient has correct armband on for positive identification. Bed in low position. Call sv light in reach. Pulse ox on. NIBP on. Door closed. Head of bed elevated. 11:05 Inserted saline lock: 20 gauge in left antecubital area, using aseptic technique. Blood hb collected. 11:20 CT Soft Tissue Neck W/contr In Process Unspecified. EDMS 12:23 No provider procedures requiring assistance completed. IV discontinued, intact, sv bleeding controlled, No redness/swelling at site. Pressure dressing applied. Administered Medications: 11:45 Drug: GI Cocktail without - (Maalox Suspension 30 ml, Lidocaine Liquid 2 % 15 sv ml) Route: PO; 12:23 Follow up: Response: No adverse reaction sv Outcome: 12:00 Discharge ordered by . pm1 12:23 Discharged to home ambulatory. sv 12:23 Condition: stable 12:23 Discharge instructions given to patient, Instructed on discharge instructions, follow up and referral plans. medication usage, Demonstrated understanding of instructions, follow-up care, medications, Prescriptions given X 1. 12:24 Patient left the ED. sv Signatures: Dispatcher [employer] EDSandra Jimenez RN RN sv Rivera, Mary mr Marinas, Patrick, ARTISTIC ASSOCIATE ARTISTIC ASSOCIATE pm1 Shirin Jara RN RN Rizwan Deluca RN RN ll1
[2020-12-06 23:17] VITALS: BP 125/91; TEMP 98.9; O2SAT 97
== END 2020-12-06 12:24 | disposition home or self-care (01) ==
LOC: ER 10:21
DX: J02.9 Acute pharyngitis, unspecified (principal)
CPT/HCPCS: 36415; 70491; 80048; 85025; 87070; 87081; 99284; Q9967

== ENCOUNTER 2021-01-20 10:12 | Emergency (ER) | payer SELFPAY ==
--- OUTSIDE RECORDS SUMMARY | 2021-01-20 10:15 | XMS REPORT | Continuity of Care Document ---
:[address] [facility] t Address [address] [place] [address] Care Team Providers Name Role Phone Brandy Nugent Attending Clinician Problems This patient has no known problems. Allergies, Adverse Reactions, Alerts This patient has no known allergies or adverse reactions. Medications This patient has no known medications. Procedures This patient has no known procedures. Encounters Start End Encounter Admission Attending Care Care Encounter Source Date/Time Date/Time Type Type Clinicians Facility Department ID 2021-01-19 2021-01-19 Office KENDRA Brito [id number] 10:27:32 11:26:12 Visit Bridgette Nava J2EE CONSULTANT [id number] [facility] [id number] MATERNAL [id number] & CHILD [address] [place] [address] Results This patient has no known results.
--- NOTE | 2021-01-20 10:47 | ER ---
Nurse's Notes [facility] Name: Julisa Keller Age: 30 yrs Sex: Female : 1990 Arrival Date: 01/20/2021 Time: 10:13 Bed Waiting Private MD: Diagnosis: Puncture wound without foreign body of left upper arm Presentation: 01/20 10:43 Chief complaint: Patient states: it happened about 30 minutes ago, i was trying to give tw2 my cat a bath and she scratched me. she punctured me and it looked like a vein with her mouth. she is an outside cat but just in my apartment [facility]. Coronavirus screen: At this time, the client does not indicate any symptoms associated with coronavirus-19. Ebola Screen: Patient denies travel to an Ebola-affected area in the 21 days before illness onset. Initial Sepsis Screen: Does the patient meet any 2 criteria? No. Patient's initial sepsis screen is negative. Does the patient have a suspected source of infection? No. Patient's initial sepsis screen is negative. Risk Assessment: Do you want to hurt yourself or someone else? Patient reports no desire to harm self or others. Onset of symptoms was January 20, 2021. 10:43 Method Of Arrival: Ambulatory tw2 10:43 Acuity: CHRISTI 4 tw2 10:43 Note provider TIP Soler in triage room at this time. tw2 Triage Assessment: 10:46 Bite description: bite sustained to left tricep. Bite description: by a cat, animal tw2 information: vaccination(s) is unknown. General: Appears in no apparent distress. slender, well groomed, Behavior is calm, cooperative, appropriate for age. Pain: Denies pain. OUTREACH COUNSELOR: 10:47 LMP N/A - tw2 Historical: - Allergies: 10:45 No Known Allergies; tw2 - Home Meds: 10:45 nexplanon every 4 years for Family Planning [Active]; tw2 - PMHx: 10:45 Anxiety; tw2 - PSHx: 10:45 None; tw2 - Immunization history:: Adult Immunizations. - Social history:: Smoking status: . Screenin:47 Abuse screen: Denies threats or abuse. Nutritional screening: No deficits noted. tw2 Tuberculosis screening: No symptoms or risk factors identified. Fall Risk None identified. Assessment: 10:47 Derm: Skin is intact, is healthy with good turgor, Skin is pink, warm \T\ dry. tw2 Vital Signs: 10:43 BP 115 / 85; Pulse 64; Resp 17; Temp 97.9(TE); Pulse Ox 98% on R/A; Weight 97.07 kg tw2 (R); Height 5 ft. 4 in. (162.56 cm); 10:43 Body Mass Index 36.73 (97.07 kg, 162.56 cm) tw2 ED Course: 10:13 Patient arrived in ED. am2 10:33 [facility] Carbajal [facility]C [facility] kb 10:33 Maurice Gleason MD is Attending Physician. kb 10:45 Triage completed. tw2 10:45 Arm band placed on. tw2 10:47 Ashley Anaya RN is Primary Nurse. tw2 10:47 pt remains in triage room at this time awaiting discharge papers. tw2 10:52 No provider procedures requiring assistance completed. Patient did not have IV access tw2 during this emergency room visit. Administered Medications: No medications were administered Outcome: 10:46 Discharge ordered by . kb 10:52 Discharged to home ambulatory. tw2 10:52 Condition: stable 10:52 Discharge instructions given to patient, Instructed on discharge instructions, follow up and referral plans. medication usage, wound care, Demonstrated understanding of instructions, follow-up care, medications, wound care, Prescriptions given X 1. 10:52 Patient left the ED. tw2 Signatures: Anna Carbajal FNP-C FNP-Ashley Faulkner RN RN tw2 Sahara Ma am2
--- NOTE | 2021-01-20 10:47 | EDPHYS ---
Physician Documentation [facility] Name: Julisa Keller Age: 30 yrs Sex: Female : 1990 Arrival Date: 01/20/2021 Time: 10:13 Bed Waiting Private MD: ED Physician Maurice Gleason HPI: 01/20 10:48 This 30 yrs old Female presents to ER via Ambulatory with complaints of Cat kb Bite - scratch. 10:48 The patient has a laceration related to: giving cat a bath occurred at home, and there kb are no complicating factors. The injury was accidental. The laceration(s) is(are) located on the left tricep. Onset: The symptoms/episode began/occurred just prior to arrival. Associated signs and symptoms: The patient has no apparent associated signs or symptoms. The patient has not experienced similar symptoms in the past. The patient has not recently seen a physician. 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 . 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 - Social history:: Smoking status: . ROS: 10:50 Constitutional: Negative for fever, chills, and weight loss, MS/Extremity: Negative for kb injury and deformity. 10:50 Skin: Positive for puncture, of the left tricep. 10:50 All other systems are negative. Exam: 10:50 Constitutional: This is a well developed, well nourished patient who is awake, alert, kb and in no acute distress. Head/Face: Normocephalic, atraumatic. ENT: Moist Mucous membranes Respiratory: Respirations even and unlabored. No increased work of breathing, no retractions or nasal flaring. MS/ Extremity: Pulses equal, no cyanosis. Neurovascular intact. Full, normal range of motion. Neuro: Awake and alert, GCS 15, oriented to person, place, time, and situation. Moves all extremities. Normal gait. Psych: Awake, alert, with orientation to person, place and time. Behavior, mood, and affect are within normal limits. 10:50 Skin: injury, puncture(s), that are superficial, of the left tricep. Vital Signs: 10:43 BP 115 / 85; Pulse 64; Resp 17; Temp 97.9(TE); Pulse Ox 98% on R/A; Weight 97.07 kg tw2 (R); Height 5 ft. 4 in. (162.56 cm); 10:43 Body Mass Index 36.73 (97.07 kg, 162.56 cm) tw2 MDM: 10:46 Patient medically screened. kb 10:50 Data reviewed: vital signs, nurses notes. Data interpreted: Pulse oximetry: on room air kb is 98 %. Interpretation: normal. Counseling: I had a detailed discussion with the patient and/or guardian regarding: the historical points, exam findings, and any diagnostic results supporting the discharge/admit diagnosis, the need for outpatient follow up, a family practitioner, to return to the emergency department if symptoms worsen or persist or if there are any questions or concerns that arise at home. Administered Medications: No medications were administered Disposition: 17:10 Co-signature as Attending Physician, Maurice Gleason MD. rn Disposition: 01/20/21 10:46 Discharged to Home. Impression: Puncture wound without foreign body of left upper arm. - Condition is Stable. - Discharge Instructions: Puncture Wound, [id number]. - Prescriptions for Keflex 500 mg Oral Capsule - take 1 capsule by ORAL route every 8 hours for 10 days; 30 capsule. - Medication Reconciliation Form, Thank You Letter, Antibiotic Education, Prescription Opioid Use form. - Follow up: Emergency Department; When: As needed; Reason: Worsening of condition. Follow up: Private Physician; When: 2 - 3 days; Reason: Recheck today's complaints, Continuance of care, Re-evaluation by your physician. Signatures: Anna Carbajal, SEWER CONTRACTOR-C SEWER CONTRACTOR-Phucb Maurice Gleason MD MD rn Wise, Tara, RN RN tw2 Corrections: (The following items were deleted from the chart) 10:52 10:46 01/20/2021 10:46 Discharged to Home. Impression: Puncture wound without foreign tw2 body of left upper arm. Condition is Stable. Forms are Medication Reconciliation Form, Thank You Letter, Antibiotic Education, Prescription Opioid Use. Follow up: Emergency Department; When: As needed; Reason: Worsening of condition. Follow up: Private Physician; When: 2 - 3 days; Reason: Recheck today's complaints, Continuance of care, Re-evaluation by your physician. kb
[2021-01-20 11:05] VITALS: BP 115/85; TEMP 97.9; O2SAT 98
== END 2021-01-20 10:52 | disposition home or self-care (01) ==
LOC: ER 10:12
DX: S41.132A Puncture wound without foreign body of left upper arm, initial encounter (principal); W55.03XA Scratched by cat, initial encounter; Y93.89 Activity, other specified; F41.9 Anxiety disorder, unspecified
CPT/HCPCS: 99282

== ENCOUNTER 2021-04-01 23:12 | Emergency (ER) | payer OTHER, SELFPAY ==
--- OUTSIDE RECORDS SUMMARY | 2021-04-01 23:15 | XMS REPORT | Continuity of Care Document ---
:1990 Author Organization [facility] t Address [address] [place] [address] Care Team Providers Name Role Phone Ultrasound Attending Clinician Unavailable Manuel Storm Attending Clinician Problems This patient has no known problems. Allergies, Adverse Reactions, Alerts This patient has no known allergies or adverse reactions. Medications This patient has no known medications. Procedures This patient has no known procedures. Encounters Start End Encounter Admission Attending Care Care Encounter Source Date/Time Date/Time Type Type Clinicians Facility Department ID 2021-03-30 2021-03-30 Vocational Training Director Marika, KENDRA [id number] 10:28:14 10:58:14 Visit Anna LABORER YARD [id number] REGIONAL [id number] MATERNAL [id number] & CHILD [address] [facility] 2021-03-30 2021-03-30 Telephone KENDRA Hodges [id number] 00:00:00 00:00:00 Josette Jackson LABORER YARD [id number] [facility] [id number] MATERNAL [id number] & CHILD 107 [facility] 2021-03-30 2021-03-30 Abstract KENDRA Hodges [id number] 00:00:00 00:00:00 Roshunda R LABORER YARD [id number] REGIONAL [id number] MATERNAL [id number] & CHILD 107 [facility] 2021-03-25 2021-03-25 [facility] [id number] 10:21:17 11:02:19 Roshunda R LABORER YARD [id number] Visit REGIONAL [id number] MATERNAL [id number] & CHILD 107 [facility] 2021-03-18 2021-03-18 Critical access hospital [id number] 00:00:00 00:00:00 Roshunda R LABORER YARD [id number] REGIONAL [id number] MATERNAL [id number] & CHILD 107 [facility] 2021-03-17 2021-03-17 Routine [facility] [id number] 13:23:36 14:08:02 Roshunda R LABORER YARD [id number] Visit REGIONAL [id number] MATERNAL [id number] & CHILD 107 [facility] 2021-03-17 2021-03-17 Critical access hospital [id number] 00:00:00 00:00:00 Roshunda R LABORER YARD [id number] REGIONAL [id number] MATERNAL [id number] & CHILD 107 [facility] 2021-03-05 2021-03-05 Critical access hospital [id number] 00:00:00 00:00:00 Roshunda R LABORER YARD [id number] REGIONAL [id number] MATERNAL [id number] & CHILD 107 [facility] 2021-03-04 2021-03-04 Critical access hospital [id number] 00:00:00 00:00:00 Roshunda R LABORER YARD [id number] REGIONAL [id number] MATERNAL [id number] & CHILD [address] [place] [address] - [place] Results This patient has no known results.
[2021-04-02 00:50] LABS: Urine Blood Trace-intact (Negative); Urine Glucose Negative (Negative); Urine Protein Trace (Negative); Urine Specific Gravity >=1.030 (1.005-1.030); Urine pH 5.5 (5.0-7.0)
[2021-04-02 01:03] LABS: Absolute Lymphocytes (CBC) 2.1 K/uL (0.7-4.9); Basophils % 0.9 % (0-1.3); Hematocrit 40.5 % (36.0-45.0); Lymphocytes % 21.1 % (15.3-44.8); MPV 6.8 fL (7.6-11.3); RBC Red Blood Cell Count 4.71 M/uL (3.86-4.86)
[2021-04-02 01:07] LABS: Urine Specific Gravity/Preg >1.030 (1.005-1.030)
[2021-04-02 01:20] LABS: BUN Blood Urea Nitrogen 9 mg/dL (7-18); Bicarbonate 21 mmol/L (21-32); Glucose Level 97 mg/dL (74-106); Potassium 3.7 mmol/L (3.5-5.1); Sodium Level 138 mmol/L (136-145)
--- NOTE | 2021-04-02 01:43 | ER ---
Nurse's Notes [facility] Name: Julisa Keller Age: 30 yrs Sex: Female : 1990 Arrival Date: 04/01/2021 Time: 23:16 Bed 14 Private MD: Diagnosis: Palpitations Presentation: 04/01 23:21 Chief complaint: Patient states: I feel my heart beating in my stomach and I had a tl1 burning in my front and back chest area. I have been having back pain with shortness of breath. I just took my first dose of citalopram today due to my depression and anxiety. Coronavirus screen: Client denies travel out of the [place] in the last 14 days. Ebola Screen: Patient negative for fever greater than or equal to 101.5 degrees Fahrenheit, and additional compatible Ebola Virus Disease symptoms Patient denies exposure to infectious person. Patient denies travel to an Ebola-affected area in the 21 days before illness onset. Initial Sepsis Screen: Does the patient meet any 2 criteria? No. Patient's initial sepsis screen is negative. Does the patient have a suspected source of infection? No. Patient's initial sepsis screen is negative. Risk Assessment: Do you want to hurt yourself or someone else? Patient reports no desire to harm self or others. Onset of symptoms was April 01, 2021. 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 - Social history:: Smoking status: Patient denies any tobacco usage or history of. Patient/guardian denies using alcohol, street drugs. - Family history:: not pertinent. - Hospitalizations: : No recent hospitalization is reported. Screenin/22 00:47 Abuse screen: Denies threats or abuse. Denies injuries from another. Nutritional bs2 screening: No deficits noted. Tuberculosis screening: No symptoms or risk factors identified. Fall Risk None identified. Assessment: 00:47 General: Appears in no apparent distress. comfortable, obese, well groomed, well bs2 developed, well nourished, Behavior is cooperative, anxious. Pain: Complains of pain in chest Pain radiates to back Pain currently is 6 out of 10 on a pain scale. Pain began gradually. Neuro: No deficits noted. Cardiovascular: No deficits noted. Reports chest pain, shortness of breath, Chest pain radiates back. Respiratory: No deficits noted. GI: Bowel sounds present X 4 quads. Abd is soft and non tender X 4 quads. Vital Signs: 04/01 23:28 BP 117 / 87; Pulse 90; Resp 17; Temp 98.4; Pulse Ox 100% ; Weight 97.98 kg; Height 5 tl1 ft. 4 in. (162.56 cm); Pain 0/10; 04/02 02:23 BP 115 / 74 LA Sitting (auto/reg); Pulse 89 MON; Resp 16 S; Temp 98.6(O); Pulse Ox 100% bs2 on R/A; Pain 0/10; 04/01 23:28 Body Mass Index 37.08 (97.98 kg, 162.56 cm) tl1 ED Course: 04/01 23:16 Patient arrived in ED. es 23:26 Triage completed. tl1 23:28 Arm band placed on right wrist. tl1 04/02 00:14 Maurice Gleason MD is Attending Physician. rn 00:46 Idalia Jacques, CAYETANO is Primary Nurse. bs2 00:47 Patient has correct armband on for positive identification. Bed in low position. Call bs2 light in reach. Side rails up X 1. Warm blanket given. 00:49 Inserted saline lock: 22 gauge in left wrist, using aseptic technique. Blood collected. bs2 01:14 T4 Free Sent. jb5 01:14 Basic Metabolic Panel Sent. jb5 01:14 TSH Sent. jb5 02:23 No provider procedures requiring assistance completed. IV discontinued, intact, bs2 bleeding controlled, No redness/swelling at site. Administered Medications: No medications were administered Outcome: 01:42 Discharge ordered by . rn 02:23 Discharged to home ambulatory. bs2 02:23 Condition: improved 02:23 Discharge instructions given to patient, Instructed on discharge instructions, follow up and referral plans. Demonstrated understanding of instructions, follow-up care. 02:25 Patient left the ED. bs2 Signatures: Mariel Ya Roman, MD MD rn Liza Garza RN RN tl1 Gabriela Cates jb5 Idalia Jacques RN RN bs2
--- NOTE | 2021-04-02 01:43 | EDPHYS ---
Physician Documentation [facility] Name: Julisa Keller Age: 30 yrs Sex: Female : 1990 Arrival Date: 04/01/2021 Time: 23:16 Bed 14 Private MD: ED Physician Maurice Gleason HPI: 04/02 01:37 This 30 yrs old Female presents to ER via Ambulatory with complaints of rn Palpitations, 10WKS PREG. 01:37 The patient presents with a history of heart racing. Context: The symptoms occur at rn rest, with light activity. Onset: The symptoms/episode began/occurred 1 month(s) ago. Duration: The patient or guardian reports multiple episodes, that are intermittent. Modifying factors: The symptoms are aggravated by nothing. The symptoms are alleviated by nothing. Severity of symptoms: At their worst the symptoms were moderate in the emergency department the symptoms have resolved. The patient has experienced similar episodes in the past. The patient has not recently seen a physician. Patient states approximately 1 month of intermittent palpitations, feels like heart rate goes up into the 120s for a few minutes, no current symptoms. Reports is 10 weeks by ultrasound. No fever chest pain abdominal pain, or urinary symptoms. No bleeding or abdominal trauma. 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 - Social history:: Smoking status: Patient denies any tobacco usage or history of. Patient/guardian denies using alcohol, street drugs. - Family history:: not pertinent. - Hospitalizations: : No recent hospitalization is reported. ROS: 04/02 01:37 Constitutional: Negative for fever, chills, and weight loss, Eyes: Negative for injury, rn pain, redness, and discharge, ENT: Negative for injury, pain, and discharge, Neck: Negative for injury, pain, and swelling, Cardiovascular: Negative for chest pain, and edema, Respiratory: Negative for shortness of breath, cough, wheezing, and pleuritic chest pain, Abdomen/GI: Negative for abdominal pain, nausea, vomiting, diarrhea, and constipation, Back: Negative for injury and pain, : Negative for injury, bleeding, discharge, and swelling, MS/Extremity: Negative for injury and deformity, Skin: Negative for injury, rash, and discoloration, Neuro: Negative for headache, weakness, numbness, tingling, and seizure. Exam: 01:37 Constitutional: This is a well developed, well nourished patient who is awake, alert, rn and in no acute distress. Head/Face: Normocephalic, atraumatic. Eyes: Periorbital areas with no swelling, redness, or edema. Cardiovascular: Regular rate and rhythm. No pulse deficits. Respiratory: Speaking full sentences unlabored. No increased work of breathing, no retractions or nasal flaring. Abdomen/GI: Soft, non-tender Skin: Warm, dry MS/ Extremity: Pulses equal, no cyanosis. Neuro: Awake and alert, GCS 15 Vital Signs: 04/01 23:28 BP 117 / 87; Pulse 90; Resp 17; Temp 98.4; Pulse Ox 100% ; Weight 97.98 kg; Height 5 tl1 ft. 4 in. (162.56 cm); Pain 0/10; 04/02 02:23 BP 115 / 74 LA Sitting (auto/reg); Pulse 89 MON; Resp 16 S; Temp 98.6(O); Pulse Ox 100% bs2 on R/A; Pain 0/10; 04/01 23:28 Body Mass Index 37.08 (97.98 kg, 162.56 cm) tl1 MDM: 00:14 Patient medically screened. rn 01:37 Data reviewed: vital signs, nurses notes, lab test result(s), EKG, and as a result, I rn will discharge patient. Counseling: I had a detailed discussion with the patient and/or guardian regarding: the historical points, exam findings, and any diagnostic results supporting the discharge/admit diagnosis, lab results, the need for outpatient follow up, to return to the emergency department if symptoms worsen or persist or if there are any questions or concerns that arise at home. Special discussion: I discussed with the patient/guardian in detail that at this point there is no indication for admission to the hospital. It is understood, however, that if the symptoms persist or worsen the patient needs to return immediately for re-evaluation. Based on the history and exam findings, there is no indication for further emergent testing or inpatient evaluation. I discussed with the patient/guardian the need to see the irrigation laborer for further evaluation of the symptoms. I discussed with the patient/guardian the need to see the OB Gyne specialist for further evaluation of the symptoms. I discussed with the patient/guardian the need to see the primary care provider for further evaluation of the symptoms. ED course: No acute findings on EKG or blood work. Stable vital signs. Patient currently asymptomatic. Recommend OB, PCP, cardiology follow-up for possible Holter monitor and further recommendations.. 04/02 00:28 Order name: CBC with Diff; Complete Time: rn 04/02 00:28 Order name: Basic Metabolic Panel; Complete Time: rn 04/02 00:28 Order name: TSH; Complete Time: rn 04/02 00:28 Order name: T4 Free; Complete Time: rn 04/02 00:50 Order name: Urine Dipstick-Ancillary; Complete Time: [facility] 04/02 00:51 Order name: Urine --Ancillary (enter results); Complete Time: mw 04/02 00:28 Order name: EKG; Complete Time: 00: rn 04/02 00:28 Order name: EKG - Nurse/Tech; Complete Time: 01: rn 04/02 00:28 Order name: IV Start; Complete Time: 01:14 rn Administered Medications: No medications were administered Disposition Summary: 04/02/21 01:42 Discharge Ordered Location: Home rn Problem: an ongoing problem rn Symptoms: have improved rn Condition: Stable rn Diagnosis - Palpitations rn Followup: rn - With: Private Physician - When: As needed - Reason: Recheck today's complaints, Re-evaluation by your physician Discharge Instructions: - Discharge Summary Sheet rn - Palpitations rn Forms: - Medication Reconciliation Form rn - Thank You Letter rn - 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
[2021-04-02 03:22] VITALS: O2SAT 100
[2021-04-02 03:24] VITALS: BP 115/74; TEMP 98.6
--- NOTE | 2021-04-02 10:59 | EKG ---
Test Date: 2021-04-02 Test Time: 01:07:37 Automation Test Engineer: NUNO MEASUREMENT RESULTS: Intervals: Rate: 65 LA: 140 QRSD: 84 QT: 396 QTc: 411 [place]: P: 25 LA: 140 QRS: 43 T: 26 INTERPRETIVE STATEMENTS: Normal sinus rhythm with sinus arrhythmia Normal ECG No previous ECG available for comparison Electronically Signed On 04-02-21 10:58:21 CDT by Dada Downs
== END 2021-04-02 02:25 | disposition home or self-care (01) ==
LOC: ER 23:12
DX: O26.891 Other specified pregnancy related conditions, first trimester (principal); O99.341 Other mental disorders complicating pregnancy, first trimester; F41.9 Anxiety disorder, unspecified; Z3A.10 10 weeks gestation of pregnancy
CPT/HCPCS: 36415; 80048; 81003; 81025; 84439; 84443; 85025; 93005; 99283

== ENCOUNTER 2023-07-07 08:43 | Emergency (ER) | payer SELFPAY ==
--- OUTSIDE RECORDS SUMMARY | 2023-07-07 08:46 | XMS REPORT | Continuity of Care Document ---
:1990 Author Organization [facility] t Address [address] [place] [address] [place] [id number] Care Team Providers Name Role Phone Josette Storm Primary Care Physician Unavailable Maral Kumari CNM Attending Clinician MARAL KUMARI Attending Clinician Unavailable Doctor Unassigned, [place] Attending Clinician Unavailable Maral Temple MA Attending Clinician Unavailable CHARLIE BRITO Attending Clinician Unavailable Alisha Charlie MARIO Attending Clinician [phone] Josette Storm Attending Clinician JOSETTE MARTINEZ Attending Clinician Unavailable [facility], [facility] Attending Clinician Unavailable JOSE LUIS FOWLER Attending Clinician Unavailable JOSE LUIS FOWLER Attending Clinician Unavailable Luke Wakefield MD, Brooklynn Attending Clinician [phone] Jose Luis Fowler MD Attending Clinician Arlin Gautam MD Attending Clinician Gracie Tate MD Attending Clinician Mukesh Peters MD Attending Clinician Only, Ang Db Test Attending Clinician Unavailable Justine Silva Attending Clinician JUSTINE REESE Attending Clinician Unavailable MICHAEL VILLALOBOS Attending Clinician Unavailable Provider, Ang-Rm[facility] Temp Attending Clinician Unavailable Griselda Michael MARIO Attending Clinician [phone] MARLO TRUJILLO Attending Clinician Unavailable Marlo Capone R Attending Clinician REGGIE PATINO Attending Clinician Unavailable REGGIE PATINO Attending Clinician Unavailable Reggie Patino DO Attending Clinician Therapist, Adc Respiratory Attending Clinician Unavailable Jose Azevedo MD Attending Clinician JOSE AZEVEDO Attending Clinician Unavailable Only, Adc Test Attending Clinician Unavailable Antonio Del Valle MD Attending Clinician Ultrasound, Gregg-Mfm Attending Clinician Unavailable Juan Jose Dean MD Attending Clinician JANNA KIRK Attending Clinician Unavailable Janna Kirk MD Attending Clinician JASON SHULTZ Attending Clinician Unavailable JOSE LUIS FOWLER Admitting Clinician Unavailable Jose Luis Fowler MD Admitting Clinician Payers Payer Name Policy Type Policy Number Effective Date Expiration Date Rosalee YEPEZ [facility] [id number] 2019 00:00:00 [place] [id number] 2021 00:00:00 MEDICAID PENDING PENDING 2021 00:00:00 [id number] 2020 00:00:00 Problems Condition Condition Condition Status Onset Resolution Last Treating Co mments Source Name Details Category Date Date Treatment Clinician Date Nexplanon Nexplanon Disease Active Uni vers in place in place 03-17 ity of 00:00: [place] 00 [facility] History of History of Disease Active Overview : Univers abnormal abnormal 03-17 Formattin ity of cervical cervical 00:00: g of this [place] as Pap smear Pap smear 00 note Medi shola might be Branch different from the original. 11/2021 negative pap with +HPV07/20 23 negative pap and HPV, repeat 1 year Nexplanon Nexplanon Disease Active Uni vers insertion insertion 4-25 ity of 00:00: [place] [facility] Cervical Cervical Disease Active Overview: Un ander high risk high risk 4-01 Formattin i ty of human human 00:00: g of this [place] papillomav papillomav 00 note Me dical irus (HPV) irus (HPV) might be Branch DNA test DNA test different positive positive from the original. 11/2021 HPV +-> Will await pap smear results Dysuria Dysuria Disease Active Univers 3-29 ity of 00:00: [address] 40 weeks 40 weeks Disease Active Unive rs gestation gestation 2-13 ity of of of 00:00: [place] 00 [facility] Branch Positive Positive Disease Active Unive rs GBS test GBS test 1-20 ity of 00:00: [place] [facility] Tachycardi Tachycardi Disease Active U nivers a, a, 9-08 ity of unspecifie unspecifie 00:[place] [facility] Vaginal Vaginal Disease Active Univers bleeding bleeding 7-06 ity of 00:00: [place] [facility] Multiparit Multiparit Disease Active U nivers y y 6-18 ity of 00:00: [place] [facility] Supervisio Supervisio Disease Active U nivers n of high n of high 6-18 ity of risk risk 00:00: [place] , , 00 Me dical antepartum antepartum Br anch H/O one H/O one Disease Active Univers miscarriag miscarriag 6-18 it y of e e 00:00: [place] [facility] History of History of Disease Active 2020- U nivers anxiety anxiety 3-02 ity of 00:00: [place] [address] [facility] [place] History of History of Disease Active U nivers depression depression 3-02 it y of 00:00: [address] Well woman Well woman Disease Active 2019-0 U william exam exam 1-30 ity of 00:00: [place] [facility] UTI UTI Disease Active 2018-09 Univers (urinary (urinary 2-23 ity of tract tract 00:00: [place] infection) infection) 00 Me dical Branch Nexplanon Nexplanon Disease Active Uni vers removal removal 4- ity of 00:00: [place] [facility] Contracept Contracept Disease Active U william fortino fortino 10-10 ity of management management [place] [facility] [place] Former Former Disease Active Univers smoker smoker 10-10 ity of 00:00: [place] [facility] BMI BMI Disease Active Univers 37.0-37.9, 37.0-37.9, 1-29 it y of adult adult 00:00: [place] [facility] Generalize Generalize Disease Active U nivrobin d anxiety d anxiety 3-05 ity of disorder disorder 00:00: [place] 00 [facility] Class 2 Class 2 Disease Active Univers obesity obesity 3-04 ity of due to due to 00:00: [place] excess excess 00 [facility] calories calories Branch with body with body mass index mass index (BMI) of (BMI) of 37.0 to 37.0 to 37.9 in 37.9 in adult, adult, unspecifie unspecifie d whether d whether serious serious comorbidit comorbidit y present y present Allergies, Adverse Reactions, Alerts Allergy Allergy Status Severity Reaction(s) Onset Inactive Treating Comm ents Source Name Type Date Date Clinician NO KNOWN Drug Active Univers ALLERGIE Class ity of S [facility] Social History Social Habit Start Date Stop Date Quantity Comments Source Gender identity Universit y of [facility] Sexual orientation Univer sity of [facility] ASSERTION [facility] History of Social 2023-03-17 2023-03-17 Univers ity of function 00:00:00 00:00:00 [facility] Exposure to 2021-12-25 2022-01-04 Not sure [facility] SARS-CoV-2 (event) 00:00:00 09:07:00 [facility] Alcohol intake 2021-05-14 2021-05-14 Current drinker Unive rsity of 00:00:00 00:00:00 of alcohol [facility] (finding) [place] Cigarettes smoked 2020-11-11 2020-11-11 Univers ity of current (pack per 00:00:00 00:00:00 [facility] ed) - Reported Branch Tobacco use and 2020-11-11 2020-11-11 Smokeless tobacco Un iversity of exposure 00:00:00 00:00:00 non-user [facility] History of tobacco 2017-05-13 2020-10-12 Cigarette Smoker University of use 00:00:00 00:00:00 [facility] Alcohol Comment 2018-10-10 2018-10-10 occasional Universit y of 00:00:00 00:00:00 [facility] Sex [birth year] Universit y of 00:00:00 00:00:00 [facility] Smoking Status Start Date Stop Date Source Ex-smoker 2020-11-11 00:00:00 2020-11-11 00:00:00 Universi ty of [facility] Medications Ordered Filled Start Stop Current Ordering Indication Dosage Frequency Signature Comments Components Source Medication Medication Date Date Medication? Clinician (SIG) Name Name metroNIDAZO 2022- No [id number] 500mg Take 1 Univers LE 500 mg 03-18-15 tablet by ity of tablet 00:00: 04:59 mouth in [place] 00 :00 the Medical morning Branch and 1 tablet in the evening. Do all this for 7 days. etonogestre 2021- No [id number] 68mg Univers L 4-25 04-25 ity of (NEXPLANON) 15:30: 14:31 [place] implant 68 00 :00 Medical Branch etonogestre 2021- No [id number] 68mg 68 mg, Univers L 4-25 04-25 Subdermal, ity of (NEXPLANON) 15:30: 14:31 ONCE NOW, [place] implant 68 00 :00 1 dose, On Med ical mg Mon Branch 01/04/22 at 1030, Routine
Use approved by: TREE WORKER No known No Univers medications 4-25 ity of 09:36: [place] [address] Medical Branch 2020- No [id number] 1{packe Take 1 Univers vit 6-23 12-13 t} Packet by ity of 33-iron-fol 00:00: 00:00 [place] ic-dha 00 :00 daily. Medical (SELECT-OB Branch + DHA) 29 mg iron-1 mg -250 mg combo pack Immunizations Ordered Filled Date Status Comments Source Immunization Name Immunization Name AP 2021-08-03 Completed University of 00:00:00 [facility] Rho (d) Immune 2021-08-03 Completed University of Globulin 00:00:00 [facility] TDAP 2021-08-03 Completed University of 00:00:00 [facility] Rho (d) Immune 2021-08-03 Completed University of Globulin 00:00:00 [facility] TDAP 2021-08-03 Completed University of 00:00:00 [facility] Rho (d) Immune 2021-08-03 Completed [facility] of 00:00:00 [facility] Rho (d) Immune 2021-08-03 Completed [facility] University of 00:00:00 [facility] Rho (d) Immune 2021-08-03 Completed [facility] University of 00:00:00 [facility] Rho (d) Immune 2021-08-03 Completed [facility] University of 00:00:00 [facility] Rho (d) Immune 2021-08-03 Completed [facility] Com[facility] University of 00:00:00 [facility] Rho (d) Immune 2021-08-03 Completed University of Globulin 00:00:00 [facility] HPV9 2020-11-11 Completed University of 00:00:00 [facility] HPV9 2020-11-11 Completed University of 00:00:00 [facility] HPV9 2020-11-11 Completed University of 00:00:00 [facility] HPV9 2020-11-11 Completed University of 00:00:00 [facility] HPV9 2020-11-11 Completed University of 00:00:00 [facility] HPV9 2020-11-11 Completed University of 00:00:00 [facility] HPV9 2020-11-11 Completed University of 00:00:00 [facility] HPV9 2020-11-11 Completed University of 00:00:00 [facility] HPV9 2019-10-11 Completed University of 00:00:00 [facility] HPV9 2019-10-11 Completed University of 00:00:00 [facility] HPV9 2019-10-11 Completed University of 00:00:00 [facility] HPV9 2019-10-11 Completed University of 00:00:00 [facility] HPV9 2019-10-11 Completed University of 00:00:00 [facility] HPV9 2019-10-11 Completed University of 00:00:00 [facility] HPV9 2019-10-11 Completed University of 00:00:00 [facility] HPV9 2019-10-11 Completed University of 00:00:00 [facility] Influenza Virus 2018-06-12 Completed Universit y of Vaccine Quad ID 00:00:00 [facility] ical 18-64 YRS Branch Influenza Virus 2018-06-12 Completed Universit y of Vaccine Quad ID 00:00:00 [place] Med ical 18-64 YRS Branch Influenza Virus 2018-06-12 Completed Universit y of Vaccine Quad ID 00:00:00 [facility] ical 18-64 YRS Branch Influenza Virus 2018-06-12 Completed Universit y of Vaccine Quad ID 00:00:00 [place] Med ical 18-64 YRS Branch Influenza Virus 2018-06-12 Completed Universit y of Vaccine Quad ID 00:00:00 [place] Med ical 18-64 YRS Branch Influenza Virus 2018-06-12 Completed Universit y of Vaccine Quad ID 00:00:00 [facility] ical 18-64 YRS Branch Influenza Virus 2018-06-12 Completed Universit y of Vaccine Quad ID 00:00:00 [place] Med ical 18-64 YRS Branch Influenza Virus 2018-06-12 Completed Universit y of Vaccine Quad ID 00:00:00 [facility] ical 18-64 YRS Branch HPV9 2017-06-30 Completed University of 00:00:00 [facility] TDAP 2017-06-30 Completed University of 00:00:00 [facility] HPV9 2017-06-30 Completed University of 00:00:00 [facility] TDAP 2017-06-30 Completed University of 00:00:00 [facility] HPV9 2017-06-30 Completed University of 00:00:00 [facility] TDAP 2017-06-30 Completed University of 00:00:00 [facility] HPV9 2017-06-30 Completed University of 00:00:00 [facility] TDAP 2017-06-30 Completed University of 00:00:00 [facility] Branch HPV9 2017-06-30 Completed University of 00:00:00 [facility] Branch TDAP 2017-06-30 Completed University of 00:00:00 [facility] Branch HPV9 2017-06-30 Completed University of 00:00:00 [facility] TDAP 2017-06-30 Completed University of 00:00:00 [facility] Branch HPV9 2017-06-30 Completed University of 00:00:00 [facility] TDAP 2017-06-30 Completed University of 00:00:00 [facility] Branch HPV9 2017-06-30 Completed University of 00:00:00 [facility] TDAP 2017-06-30 Completed University of 00:00:00 [facility] Influenza Virus 2017-06-12 Completed Universit y of Vaccine 00:00:00 [facility] Influenza Virus 2017-06-12 Completed Universit y of Vaccine 00:00:00 [facility] Influenza Virus 2017-06-12 Completed Universit y of Vaccine 00:00:00 [facility] Influenza Virus 2017-06-12 Completed Universit y of Vaccine 00:00:00 [facility] Influenza Virus 2017-06-12 Completed Universit y of Vaccine 00:00:00 [facility] Influenza Virus 2017-06-12 Completed Universit y of Vaccine 00:00:00 [facility] Influenza Virus 2017-06-12 Completed Universit y of Vaccine 00:00:00 [facility] Influenza Virus 2017-06-12 Completed Universit y of Vaccine 00:00:00 [facility] Rho (d) Immune 2014-02-07 Completed University of Globulin 00:00:00 [facility] Rho (d) Immune 2014-02-07 Completed University of Globulin 00:00:00 [facility] Rho (d) Immune 2014-02-07 Completed University of Globulin 00:00:00 [facility] Rho (d) Immune 2014-02-07 Completed University of Globulin 00:00:00 [facility] Rho (d) Immune 2014-02-07 Completed University of Globulin 00:00:00 [facility] Rho (d) Immune 2014-02-07 Completed University of Globulin 00:00:00 [facility] Rho (d) Immune 2014-02-07 Completed University of Globulin 00:00:00 [facility] Rho (d) Immune 2014-02-07 Completed University of Globulin 00:00:00 [facility] Branch Rho (d) Immune 2011-07-31 Completed University of Globulin 00:00:00 [facility] Branch Rho (d) Immune 2011-07-31 Completed University of Globulin 00:00:00 [facility] Branch Rho (d) Immune 2011-07-31 Completed University of Globulin 00:00:00 [facility] Branch Rho (d) Immune 2011-07-31 Completed University of Globulin 00:00:00 [facility] Branch Rho (d) Immune 2011-07-31 Completed University of Globulin 00:00:00 [facility] Branch Rho (d) Immune 2011-07-31 Completed University of Globulin 00:00:00 [facility] Rho (d) Immune 2011-07-31 Completed University of Globulin 00:00:00 [facility] Rho (d) Immune 2011-07-31 Completed University of Globulin 00:00:00 [facility] Rubella 2011-01-15 Completed University of 00:00:00 [facility] Rubella 2011-01-15 Completed University of 00:00:00 [facility] Rubella 2011-01-15 Completed University of 00:00:00 [facility] Rubella 2011-01-15 Completed University of 00:00:00 [facility] Rubella 2011-01-15 Completed University of 00:00:00 [facility] Rubella 2011-01-15 Completed University of 00:00:00 [facility] Rubella 2011-01-15 Completed University of 00:00:00 [facility] Rubella 2011-01-15 Completed University of 00:00:00 [facility] Td 2006-09-12 Completed University of 00:00:00 [facility] Td 2006-09-12 Completed University of 00:00:00 [facility] Branch TD, NOS 2006-09-12 Completed University of 00:00:00 [facility] Branch TD, NOS 2006-09-12 Completed University of 00:00:00 [facility] Branch TD, NOS 2006-09-12 Completed University of 00:00:00 [facility] Branch TD, NOS 2006-09-12 Completed University of 00:00:00 [facility] Branch TD, NOS 2006-09-12 Completed University of 00:00:[address] [place] [facility] Branch TD, NOS 2006-09-12 Completed University of 00:00:00 [facility] Rho (d) Immune Unknown Completed University of Globulin [facility] TD, NOS Unknown Completed [facility] Rubella Unknown Completed [facility] Rho (d) Immune Unknown Completed [facility] HPV9 Unknown Completed [facility] TDAP Unknown Completed [facility] Influenza Virus Unknown Completed Universit y of Vaccine Quad ID [facility] ical 18-64 YRS Branch Influenza Virus Unknown Completed Universit y of Vaccine [facility] HPV9 Unknown Completed [facility] HPV9 Unknown Completed [facility] Vital Signs Vital Name Observation Time Observation Value Comments Source Systolic blood 2023-03-17 15:47:00 119 mm[Hg] Univer sity of pressure [facility] Diastolic blood 2023-03-17 15:47:00 74 mm[Hg] Unive rsity of [facility] Heart rate 2023-03-17 15:47:00 65 /min Universi ty of [facility] Body temperature 2023-03-17 15:47:00 [facility].44 [facility] 2023-03-17 15:47:00 18 /min Univ ersity [facility] Body height 2023-03-17 15:47:00 162.6 cm Universi ty of [facility] Body weight 2023-03-17 15:47:00 98.884 kg Universi ty of [facility] BMI 2023-03-17 15:47:00 37.42 kg/m2 Universi ty of [facility] Systolic blood 2022-01-04 14:07:00 118 mm[Hg] Univer sity of [facility] Diastolic blood 2022-01-04 14:07:00 57 mm[Hg] Unive rsity of [facility] Heart rate 2022-01-04 14:07:00 55 /min Universi ty of [facility] Body temperature 2022-01-04 14:07:00 36.44 Rani Univ ersity [facility] Respiratory rate 2022-01-04 14:07:00 20 /min Univ ersity [facility] Body height 2022-01-04 14:07:00 162.6 cm Universi ty of [facility] Body weight 2022-01-04 14:07:00 102.173 kg Universi ty of [facility] BMI 2022-01-04 14:07:00 38.66 kg/m2 Universi ty of [facility] Branch Procedures Procedure Date / Time Performing Clinician Source Performed POCT URINALYSIS W/O 2023-03-17 15:50:00 Maral Kumari [facility] SPECIFIC GRAVITY [facility] ASSIGNMENT OF BENEFITS 2023-03-17 15:15:38 Doctor Unassigned, No [facility] POCT TEST 2022-01-04 14:09:00 Charlie Brito [facility] CONSENT FOR 2022-01-04 05:01:00 Doctor Unassigned, No [facility] CONTRACEPTION [facility] Encounters Start End Encounter Admission Attending Care Care Encounter Source Date/Time Date/Time Type Type Clinicians Facility Department ID 2021-07-12 Emergency [facility] [id number] Univers 14:37:36 ity [facility] 2021-07-12 Emergency [facility] [id number] Univers 10:13:11 ity [facility] 2021-07-12 Emergency [facility] [id number] [facility] 2023-03-30 Telephone Holly [facility] [id number] Univers 00:00:00 00:00:00 Maral Griffith TREE WORKER [id number] i ty of [facility] [id number] Yaron as MATERNAL [id number] Med ical & CHILD [address] [place] [address] 2023-03-18 2023-03-18 [facility] [id number] Univers 00:00:00 00:00:00 Management Maral Griffith TREE WORKER [id number] ity of [facility] [id number] [place] as MATERNAL [id number] [facility] & CHILD [address] [place] [address] 2023-03-17 2023-03-17 Outpatient R HOLLY [facility] [id number] Univers 10:15:00 11:36:03 [facility] 2023-03-17 2023-03-17 [facility] [id number] Univers 10:15:00 11:36:03 Visit Maral Griffith TREE WORKER [id number] i ty of REGIONAL [id number] [place] as MATERNAL [id number] [facility] [address] [place] [address] 2023-03-17 2023-03-17 Orders Doctor KEO [id number] Univers 00:00:00 00:00:00 Only Unassigned, BARBY [id number] ity of [place] [facility] [id number] Y[place] as [id number] [address] 2023-01-14 2023-01-14 Case LAVON Temple [id number] Univers 00:00:00 00:00:00 Management Maral OLSONY [id number] [id number] [id number] [address] 2022-01-25 2022-01-25 Outpatient R AKINPADILLAPE, [facility] [id number] Univers 09:30:00 09:30:00 CHARLIE cabrera [facility] 2022-01-04 2022-01-04 Outpatient R AKINSIDENISSE, [facility] [id number] Univers 08:30:00 09:36:02 CHARLIE lobo [facility] 2022-01-04 2022-01-04 Office [facility] [id number] Univers 08:30:00 09:36:02 Visit Charlie Nava TREE WORKER [id number] ity of REGIONAL [id number] [place] as MATERNAL [id number] [facility] [address] [place] [address] 2022-01-04 2022-01-04 Orders Doctor KEO [id number] Univers 00:00:00 00:00:00 Only Unassigned, BARBY [id number] ity of [place] [facility] [id number] Yaron as [id number] [address] 2021-12-24 2021-12-24 Outpatient R AKINSIPE, [facility] [id number] Univers 08:30:00 08:30:00 CHARLIE gtz o [facility] 2021-12-18 2021-12-18 [facility] [id number] Univers 00:00:00 00:00:00 Rossharronnda R TREE WORKER [id number] ity of REGIONAL [id number] [place]aron as MATERNAL [id number] [facility] ical & CHILD [address] [place] [address] 2021-12-08 2021-12-08 [facility] [id number] Univers 12:45:00 14:05:05 ONELA ulisses o [facility] 2021-12-08 2021-12-08 [facility] [id number] Univers 12:45:00 14:05:05 Visit Flavianda R TREE WORKER [id number] ity of REGIONAL [id number] [place] as MATERNAL [id number] [facility] & CHILD [address] [place] [address] 2021-12-08 2021-12-08 Outpatient [facility] [id number] Univers 12:45:00 14:05:05 ONELA ulisses o f [facility] 2021-12-08 2021-12-08 Outpatient [facility] [id number] Univers 12:45:00 12:45:00 FLAVIANDA ulisses o [facility] 2021-11-17 2021-11-17 Outpatient Manuel MARTINEZ [facility] [id number] Univers 11:00:00 11:40:00 FLAVIANDA deontey o [facility] 2021-11-17 2021-11-17 [facility] [id number] Univers 11:00:00 11:40:00 Rossharronnda R TREE WORKER 350.1.13.10 ity of Visit REGIONAL 4.2.7.2.686 Yaron as MATERNAL [phone] [facility] [address] [place] [address] 2021-11-17 2021-11-17 Outpatient R MARTINEZ, [facility] [id number] Univers 11:00:00 11:40:00 JOSETTE gtz o f [facility] 2021-11-17 2021-11-17 Orders Doctor CROWLEY 1.2.840.114 [id number] Univers 00:00:00 00:00:00 Only Unassigned, BARBY 350.1.13.10 ity of Alvarado [facility] 4.2.7.2.686 Yaron as [phone] [facility] [address] 2021-11-02 2021-11-02 Nurse Visit, [facility] Nurse [facility] 1.2 .840.114 [id number] Univers 10:00:00 10:41:02 Visit MartinezJosette TREE WORKER 350.1.13.10 ity of [facility] 4.2.7.2.686 Yaron as MATERNAL [phone] Med ical & CHILD [address] [place] [address] 2021-11-02 2021-11-02 Outpatient [facility] [id number] Univers 10:00:00 10:00:00 JOSETTE gtz o yamil [facility] 2021-10-25 2021-10-28 Inpatient P JOSE LUIS FOWLER [facility] ROULA 1 [id number] Univers 07:44:00 12:37:00 JOSE LUIS FOWLER ithelen of [facility] 2021-10-25 2021-10-28 Hospital Brooklynn Porter 1 .2.840.114 [id number] Univers 07:44:00 12:37:00 Encounter Jose Luis Fowler 350.1.13.10 ity of [address]686 Yaron as [phone] [facility] [address] 2021-10-26 2021-10-26 Anesthesia Arlin Gautam 1.2.8 40.114 [id number] Univers 05:45:00 19:38:00 Event Bebeto Gracieboom DIOR 350.1.13.10 ity of [facility] 4.2.7.2.686 Yaron as [phone] [facility] [address] 2021-10-26 2021-10-26 Surgery KEO Peters 1.2.840.114 [id number] Univers 06:02:00 07:43:00 Mukesh DIOR 350.1.13.10 ity of [facility] 4.2.7.2.686 Yaron as [phone] [address] 2021-10-19 2021-10-19 Outpatient [facility] [id number] Univers 10:15:00 10:59:16 ROSHUNDA ity o [facility] 2021-10-19 2021-10-19 Routine [facility] 1.2.840.114 [id number] Univers 10:15:00 10:59:16 Roshunda R TREE WORKER 350.1.13.10 ity of Visit [facility] 4.2.7.2.686 Yaron as MATERNAL [phone] [facility] [address] [place] [address] 2021-10-12 2021-10-12 Outpatient [facility] [id number] Univers 11:00:00 11:38:27 ROSSHARRONNDA deontey o [facility] 2021-10-12 2021-10-12 [facility] 1.2.840.114 [id number] Univers 11:00:00 11:38:27 Roshunda R TREE WORKER 350.1.13.10 ity of Visit [facility] 4.2..2.686 Yaron as MATERNAL [phone] [facility] & [address] 2021-10-06 2021-10-06 Outpatient [facility] [id number] Univers 11:00:00 11:00:00 FLAVIANDA ity o [facility] 2021-10-06 2021-10-06 Outpatient [facility] [id number] Univers 11:00:00 11:00:00 FLAVIANDA ity o [facility] 2021-10-05 2021-10-05 [facility]phone [facility] 1.2.840.114 [id number] Univers 00:00:00 00:00:00 Charlie C TREE WORKER 350.1.13.10 ity of [place] [address]..7.2.686 Yaron as MATERNAL [phone] [facility] [address] [place] [address] 2021-10-02 2021-10-02 Telephone Alisha [facility] 1.2.840.114 [id number] Univers 00:00:00 00:00:00 Charlie C TREE WORKER 350.1.13.10 ity of REGIONAL 4.2.7.2.686 Yaron as MATERNAL [phone] [facility] & [address] 2021-10-01 2021-10-01 Telephone Martinez [facility] 1.2.092.029 [id number] Univers 00:00:00 00:00:00 Roshunda R TREE WORKER 350.1.13.10 ity of REGIONAL 4.2.7.2.686 Yaron as MATERNAL [phone] [address] 2021-09-29 2021-09-29 Outpatient R ALISHA [facility] [id number] Univers 12:45:00 14:11:40 CHARLIE ity o f [facility] 2021-09-29 2021-09-29 Routine Akindenisse, [facility] 1.2.778.094 [id number] Univers 12:45:00 14:11:40 Charlie C TREE WORKER 350.1.13.10 ity of Visit REGIONAL 4.2.7.2.686 Yaron as MATERNAL [phone] [facility] & [address] 2021-09-22 2021-09-22 Outpatient R MICHELLE [facility] [id number] Univers 11:00:00 11:00:00 MAYOHUNDA ity o f [facility] 2021-09-21 2021-09-21 Telephone [facility] 1.2.437.188 [id number] Univers 00:00:00 00:00:00 Roshunda R TREE WORKER 350.1.13.10 ity of REGIONAL 4.2.7.2.686 Yaron as MATERNAL [phone] [facility] & CHILD [address] [place] [address] 2021-09-18 2021-09-18 Laboratory Only, Ang Db Test [facility] 1.2.8 40.114 [id number] Univers 20:15:00 20:30:[address] [facility] 350.1.13.10 ity of [place] 4.2.7.2.686 Yaron as YESSENIA?BLEA [phone] Pr boone RIOS [address] [place] [address] MEDICAL OFFICE BUILDING 2021-09-18 2021-09-18 Outpatient R CHACE [facility] [id number] Univers 20:15:00 20:15:00 JUSTINE cabrera [facility] 2021-09-08 2021-09-08 [facility]ine [facility] 1.2.840.114 [id number] Univers 11:00:00 11:38:16 Roshunda R TREE WORKER 350.1.13.10 ity of Visit [facility] 4.2.7.2.686 Yaron as MATERNAL [phone] [facility] [address] [place] [address] 2021-09-08 2021-09-08 Outpatient [facility] [id number] Univers 11:00:00 11:38:16 JOSETTE gtz o [facility] 2021-09-08 2021-09-08 Outpatient R [facility] [id number] Univers 11:00:00 11:00:00 JOSETTE cabrera [facility] 2021-08-25 2021-08-25 Outpatient R [facility] [id number] Univers 10:45:00 11:31:52 FLAVIANDNacho tgz o [facility] 2021-08-25 2021-08-25 Routine [facility] 1.2.840.114 [id number] Univers 10:37:25 11:31:52 Roshunda R TREE WORKER 350.1.13.10 ity of Visit REGIONAL 4.2.7.2.686 Yaron as MATERNAL [phone] [facility] ical & CHILD [address] [place] [address] 2021-08-24 2021-08-24 Refill [facility] 1.2.840.114 [id number] Univers 00:00:00 00:00:00 Roshunda R TREE WORKER 350.1.13.10 ity of [facility] 4.2.7.2.686 Yaron as MATERNAL [phone] [facility] & CHILD [address] [place] [address] 2021-08-19 2021-08-19 Outpatient R [facility] [id number] Univers 09:15:00 09:15:00 ity of [facility] 2021-08-19 2021-08-19 Outpatient [address] [facility] [id number] Univers 09:15:00 09:15:00 MICHAEL clemonshelen o [facility] 2021-08-17 2021-08-17 Telephone [facility] 1.2.479.849 [id number] Univers 00:00:00 00:00:00 Josette Jackson TREE WORKER 350.1.13.10 ity of [facility] 4.2.7.2.686 Yaron as MATERNAL [phone] [facility] & CHILD [address] [place] [address] 2021-08-03 2021-08-03 Outpatient R [facility] [id number] Univers 09:30:00 10:14:33 MICHAEL gtz o [facility] 2021-08-03 2021-08-03 Routine Provider, [facility]gg-[facility] [place] 1 .2.840.114 [id number] Univers 09:19:45 10:14:33 Maral Kumari TREE WORKER 350.1.13. 10 ity of Visit Michael Villalobos [facility] 4.2.7.2.68 6 [place] MATERNAL [phone] [facility] CHILD [address] [place] [address] 2021-07-21 2021-07-21 Emergency X CASSANDRA, [facility] ERT [id number] Univers 11:35:00 14:50:00 MARLO [facility] 2021-07-21 2021-07-[address] [facility] 1.2.967.699 [id number] Univers 11:35:00 14:50:00 Marlo DAILEY 350.1.13.10 i ty of [place]2.[place] [phone] [address] 2021-07-21 2021-07-21 Orders Doctor KEO 1.2.840.114 [id number] Univers 00:00:00 00:00:00 Only Unassigned, BARBY 350.1.13.10 ity of Alvarado [facility] 4.2.7.2.686 Yaron as [phone] [address] 2021-07-20 2021-07-20 Routine Provider, [facility] 1 .2.840.114 [id number] Univers 09:17:14 10:10:07 Michael Villalobos TREE WORKER 350.1.13 .10 ity of Visit [facility] 4.2.7.2.686 Yaron as MATERNAL [phone] Med ical & CHILD 107 [facility] 2021-07-20 2021-07-20 Outpatient Manuel VILLALOBOS [facility] [id number] Univers 09:15:00 10:10:07 MICHAEL cabrera [facility] 2021-07-20 2021-07-20 Outpatient Manuel VILLALOBOS [facility] [id number] Univers 09:15:00 09:15:00 MICHAEL cabrera [facility] 2021-07-17 2021-07-17 Outpatient REGGIE WARNER [facility] [id number] Univers 16:10:00 16:10:00 REGGIE PATINO i ty of [facility] 2021-07-17 2021-07-17 Office María [facility] 1.2.840.114 [id number] Univers 14:02:31 14:35:18 Visit Reggie DAILEY 350.1.13.10 i ty [facility] [place] [phone] Pr dical [address] 2021-07-17 2021-07-17 Outpatient REGGIE WARNER [facility] 10 [id number] Univers 14:00:00 14:35:18 REGGIE PATINO i ty of [facility] 2021-07-02 2021-07-02 [place] Therapist, [facility] Respiratory [facility] 1.2.840.114 [id number] Univers 12:13:37 13:43:37 Visit Jose Azevedo 350.1.13. 10 ity of [place].2.686 [place] [phone] [facility] [address] 2021-07-02 2021-07-02 Outpatient R ROBERTO CARLOS [facility] [id number] Univers 12:00:00 12:00:00 JOSE ity of [facility] 2021-07-02 2021-07-02 Orders Patino, [facility] 1.2.533.064 [id number] Univers 00:00:00 00:00:00 Only [facility] 350.1.13.10 i ty of [employer] [place]2.7.2.[place] [phone] [facility] [address] 2021-06-29 2021-06-29 Laboratory Only, Adc Test [facility] 1.2.840. 114 [id number] Univers 09:09:25 09:24:25 Only Antonio Del [place] 350.1.13.10 ity [facility] 4.2.7.2.686 [place] [phone] [facility] [address] 2021-06-29 2021-06-29 Outpatient R [facility] [id number] Univers 08:15:00 08:15:00 ity [facility] 2021-06-22 2021-06-22 Telephone Griselda [facility] 1.2.840.114 [id number] Univers 00:00:00 00:00:00 Michael Cabrera TREE WORKER 350.1.13.10 ity of [facility] 4.2.7.2.686 Yaron as MATERNAL [phone] [facility] ical & CHILD [address] [place] [address] 2021-06-18 2021-06-18 Telephone Provider, [facility] 1.2.840.114 [id number] Univers 00:00:00 00:00:00 Ganesh TREE WORKER 350.1.13.10 ity of [facility] 4.2.7.2.686 Yaron as MATERNAL [phone] [facility] [address] [place] [address] 2021-06-17 2021-06-17 Routine Provider, [facility] 1 .2.840.114 [id number] Univers 09:51:28 10:47:55 Michael Villalobos O TREE WORKER 350.1.13 .10 ity of Visit REGIONAL 4.2.7.2.686 Yaron as MATERNAL [phone] [facility] & CHILD [address] [place] [address] 2021-06-17 2021-06-17 Outpatient R [facility] [id number] Univers 09:45:00 09:45:00 ity of [facility] 2021-06-02 2021-06-02 Abstract Michelle [facility] 1.2.840.114 [id number] Univers 00:00:00 00:00:00 Roselia R TREE WORKER 350.1.13.10 ity of [place]ION[place] 4.2.7.2.686 Yaron as MATERNAL [phone] [facility] & CHILD [address] [place] [address] 2021-06-01 2021-06-01 [place] Ultrasound, [facility] 1.2 .840.114 [id number] Univers 10:32:23 11:58:25 Visit Juan Jose Dean TREE WORKER 350.1.13.10 ity of REGIONAL 4.2.7.2.686 Yaron as MATERNAL [phone] [facility] [address] [place] [address] 2021-06-01 2021-06-01 Outpatient P [facility] [id number] Univers 10:45:00 10:45:00 ity [facility] 2021-05-20 2021-05-20 Routine Michelle [facility] 1.2.840.114 [id number] Univers 10:35:51 10:50:51 Rossharronnda R TREE WORKER 350.1.13.10 ity of Visit REGIONAL 4.2.7.2.686 Yaron as MATERNAL [phone] [facility] & CHILD [address] [place] [address] 2021-05-20 2021-05-20 Outpatient R MICHELLE [facility] [id number] Univers 10:45:00 10:45:00 ONELA ulisses o f [facility] 2021-05-18 2021-05-18 Outpatient R ROSCOE [facility] [id number] Univers 08:00:00 08:00:00 JANNA gtz o f [facility] 2021-05-15 2021-05-15 Patient [facility] 1.2.840.114 [id number] Univers 00:00:00 00:00:00 Secure Msg Janna DAILEY 350.1.13.10 ity of [place] [phone] Pr dical NAL 059 [facility] 2021-05-14 2021-05-14 Hospital [facility] 1.2.840.114 [id number] Univers 15:52:50 23:59:00 Encounter Janna Dailey 350.1.13.10 ity of [place] [phone] Pr dical nal 843 [facility] 2021-05-14 2021-05-14 Outpatient R [facility] [id number] Univers 16:00:00 16:00:00 JANNA gtz o f [facility] 2021-05-14 2021-05-14 Office [facility] 1.2.840.114 [id number] Univers 10:58:07 11:28:07 Visit Reggie Dailey 350.1.13.10 i ty of [place] Profess[place] [phone] Pr dical nal 085 [facility] 2021-05-12 2021-05-12 Outpatient R [facility] [id number] Univers 13:00:00 13:00:00 JANNA gtz o f [facility] 2021-05-06 2021-05-06 Telephone [facility] 1.2.921.250 [id number] Univers 00:00:00 00:00:00 Janna Augusta 350.1.13.10 ity of [place] Profess[place] [phone] Pr dical nal 059 [facility] 2021-04-29 2021-04-29 Outpatient R [facility] [id number] Univers 08:00:00 08:00:00 JANNA clemonsy o f [facility] 2021-04-22 2021-04-22 Outpatient [facility] [id number] Univers 10:45:00 10:45:00 ROSSHARRONNDA ulisses o [facility] 2021-04-17 2021-04-17 Outpatient R ROSCOE [facility] [id number] Univers 08:40:00 08:40:00 JANNA gtz o [facility] 2021-03-30 2021-03-30 [place] Ultrasound, [facility] 1.2.840.114 [id number] 10:28:14 10:58:14 Visit [facility] TREE WORKER 350.1.13.10 REGIONAL 4.2.7.2.686 MATERNAL [phone] & CHILD [address] [facility] 2021-03-30 2021-03-30 Outpatient P [facility] [id number] Univers 10:15:00 10:15:00 [facility] 2021-03-30 2021-03-30 [facility] 1.2.243.610 [id number] 00:00:00 00:00:00 Rossharronnda R TREE WORKER 350.1.13.10 REGIONAL 4.2.7.2.686 MATERNAL [id number] & CHILD 107 [facility] 2021-03-30 2021-03-30 Kylie Martinez [facility] 1.2.840.114 [id number] 00:00:00 00:00:00 Roshunda R TREE WORKER 350.1.13.10 REGIONAL 4.2.7.2.686 MATERNAL [phone] & CHILD 107 [facility] 2021-03-25 2021-03-25 Routine [facility] 1.2.840.114 [id number] 10:21:17 11:02:19 Roshunda R TREE WORKER 350.1.13.10 Visit REGIONAL 4.2.7.2.686 MATERNAL [phone] & CHILD 107 [facility] 2021-03-25 2021-03-25 Outpatient R MICHELLE [facility] [id number] Univers 10:15:00 10:15:00 ROSSHARRONNDA deontey o [facility] 2021-03-18 2021-03-18 Telephone Michelle [facility] 1.2.086.553 [id number] 00:00:00 00:00:00 Roshunda R TREE WORKER 350.1.13.10 REGIONAL 4.2.7.2.686 MATERNAL [id number] & CHILD 107 [facility] 2021-03-17 2021-03-17 Outpatient R MICHELLE [facility] [id number] Univers 17:00:00 17:00:00 ROSSHARRONNDA ulisses o f [facility] 2021-03-17 2021-03-17 Routine [facility] 1.2.840.114 [id number] 13:23:36 14:08:02 Roshunda R TREE WORKER 350.1.13.10 Visit REGIONAL 4.2.7.2.686 MATERNAL [id number] & CHILD 107 [facility] 2021-03-17 2021-03-17 Marietta [facility] 1.2.848.177 [id number] 00:00:00 00:00:00 Roshunda R TREE WORKER 350.1.13.10 REGIONAL 4.2.7.2.686 MATERNAL [id number] & CHILD 107 [facility] 2021-03-05 2021-03-05 Marietta [facility] 1.2.169.761 [id number] 00:00:00 00:00:00 Roshunda R TREE WORKER 350.1.13.10 REGIONAL 4.2.7.2.686 MATERNAL [id number] & CHILD 107 [facility] 2021-03-04 2021-03-04 Marietta [facility] 1.2.885.732 [id number] 00:00:00 00:00:00 Roshunda R TREE WORKER 350.1.13.10 REGIONAL 4.2.7.2.686 MATERNAL [id number] & CHILD 107 [facility] 2021-02-27 2021-02-27 Outpatient R MICHELLE [facility] [id number] Univers 09:15:00 09:15:00 FLAVIANDA ulisses cabrera [facility] 2021-01-19 2021-01-19 Outpatient R LEXII [facility] [id number] Univers 10:15:00 10:15:00 JASON [facility] 2020-12-24 2020-12-24 Outpatient R MICHELLE [facility] [id number] Univers 15:30:00 15:30:00 JOSETTE clemonsy o f [facility] 2020-12-24 2020-12-24 Outpatient R MICHELLE [facility] [id number] Univers 15:30:00 15:30:00 JOSETTE gtz o f [facility] 2020-11-11 2020-11-11 Outpatient R [facility] [id number] Univers 09:15:00 09:15:00 [facility] Results Test Description Test Time Test Comments Results Result Comments Source POCT URINALYSIS W/O SPECIFIC GRAVITY 2023-03-17 15:50:00 Test Item Value Reference Range Interpretation Comme nts POCT PH U (test code = 3254) 5 mg/dl 5-8 POCT U LEUK EST (test code = 3263) 1+ Negative - Negative POCT U NIT (test code = 3262) Neg Negative - Negative POCT U PROT (test code = 3259) Trace Negative - Negative POCT U GLU (test code = 3256) Neg Negative - Negative POCT U KETONE (test code = 3258) Small Negative - Negative POCT U BLD (test code = 3257) Trace Negative - Negative [facility] SPECIFIC [id number] 15:50:00 Test Item Value Reference Range Interpretation Comments POCT PH U (test code = 3254) 5 mg/dl 5-8 POCT U LEUK EST (test code = 1+ Negative - Negative 3263) POCT U NIT (test code = 3262) Neg Negative - Negative POCT U PROT (test code = 3259) Trace Negative - Negative POCT U GLU (test code = 3256) Neg Negative - Negative POCT U KETONE (test code = 3258) Small Negative - Negative POCT U BLD (test code = 3257) Trace Negative - Negative [facility] [id number] 14:10:00 Test Item Value Reference Range Interpretation Comments POCT PREG (test code = 1605) Negative On board controls acceptable with C Yes Line (test code = 3574) POCT PREG LOT # (test code = 3575) POCT PREG TEST DATE (test code = 3576) [facility]
[2023-07-07 09:12] LABS: Absolute Lymphocytes (CBC) 2.5 K/uL (0.7-4.9); Hematocrit 44.4 % (36.0-45.0); Lymphocytes % 23.8 % (15.3-44.8); MCV 85.2 fL (80-100); MPV 6.6 fL (7.6-11.3); Platelets 294 thou/uL (152-406); RBC Red Blood Cell Count 5.21 M/uL (3.86-4.86)
[2023-07-07] MEDS ORDERED: ONDANSETRON 4 MG/2 ML VIAL ONE ×2 (09:14→12:39)
[2023-07-07] MEDS ORDERED: MORPHINE 4 MG/ML SYR ONE (09:14)
[2023-07-07] MEDS ORDERED: NA CHLORIDE 0.9% 1,000 ML ONE (09:14)
[2023-07-07] MEDS ORDERED: HYDROMORPHONE HCL 1 MG/ML INJ ONE (10:03)
[2023-07-07] MEDS ORDERED: PROMETHAZINE INJ 25 MG/ML AMP ONE (10:03)
--- NOTE | 2023-07-07 10:03 | RAD REPORT ---
EXAM DESCRIPTION: CT - Abdomen Pelvis Wo Contrast - 07/07/2023 9:40 am CLINICAL HISTORY: Abdominal pain. Flank pain;Abd pain COMPARISON: Abdomen Pelvis W Contrast dated 04/14/2019 TECHNIQUE: CT imaging of the abdomen and pelvis was performed without contrast. Solid organ, bowel a nd vascular assessment is limited due to lack of IV and oral contrast. All CT scans are performed using dose optimization technique as appropriate and may include automated exposure control or mA/KV adjustment according to patient size. FINDINGS: The lower lung fenton are clear. The liver, spleen, pancreas, adrenal glands are within normal limits for a limited non-contrast exami nation.Punctate calculus is present left kidney superiorly without hydronephrosis. 3 mm stone distal right ureter resulting in moderate right hydroureter and hydronephrosis. No bowel obstruction, free air, free fluid or abscess. The appendix is normal. The osseous structures are within normal limits. IMPRESSION: 3 mm distal right ureter stone resulting in moderate right hydronephrosis. Punctate calculus left kidney without hydronephrosis. A limited non-contrast examination was performed as detailed.
[2023-07-07 10:15] LABS: Albumin 3.8 g/dL (3.4-5.0); Bilirubin Total 0.6 mg/dL (0.2-1.0); Potassium 3.7 mEq/L (3.5-5.1); Protein, Total 7.7 g/dL (6.4-8.2)
[2023-07-07 11:51] LABS: Urine Bacteria 20-50 /HPF (<20); Urine Bilirubin NEGATIVE (Negative); Urine Blood 3+ (OVER) (Negative); Urine Clarity Extremely Turbid (Clear); Urine Color Dark-Brown (Yellow); Urine Glucose NEGATIVE (Negative); Urine Mucus 4+ /HPF (None Seen); Urine Protein 2+ (Negative); Urine RBC >50 /HPF (None Seen); Urine Urobilinogen Normal (Normal); Urine pH 5.5 (5.0-7.0)
--- NOTE | 2023-07-07 12:12 | EDPHYS ---
Physician Documentation [facility] Name: Julisa Keller Age: 32 yrs Sex: Female : 1990 Arrival Date: 07/07/2023 Time: 08:43 Bed 13 Private MD: ED Physician Yandel Hill HPI: 07/07 12:08 This 32 yrs old Female presents to ER via Ambulatory with complaints of Low Back Pain, sp3 Vomiting. 12:09 32-year-old female with no significant past medical history presents with right-sided sp3 flank pain and mild hematuria grossly for the past 24 hours. No history of kidney stones in the past however she does have a UTI history. She denies any fever, chest pain, shortness of breath, left-sided abdominal pain, diarrhea, vomiting, or any other signs or symptoms on ROS at this time.. Historical: - Allergies: 08:59 No Known Allergies; ll1 - PMHx: 08:54 Anxiety; ll1 - Immunization history:: Adult Immunizations up to date. - Social history:: Smoking status: Reported history of juuling and/or vaping. ROS: 12:09 Constitutional: Negative for fever, chills, and weight loss, Eyes: Negative for injury, sp3 pain, redness, and discharge, ENT: Negative for injury, pain, and discharge, Neck: Negative for injury, pain, and swelling, Cardiovascular: Negative for chest pain, palpitations, and edema, Respiratory: Negative for shortness of breath, cough, wheezing, and pleuritic chest pain, MS/Extremity: Negative for injury and deformity, Skin: Negative for injury, rash, and discoloration, Neuro: Negative for headache, weakness, numbness, tingling, and seizure, Psych: Negative for depression, anxiety, suicide ideation, homicidal ideation, and hallucinations, Allergy/Immunology: Negative for hives, rash, and allergies, Endocrine: Negative for neck swelling, polydipsia, polyuria, polyphagia, and marked weight changes, Hematologic/Lymphatic: Negative for swollen nodes, abnormal bleeding, and unusual bruising, 12:09 All other systems are negative, Exam: 12:09 Constitutional: This is a well developed, well nourished patient who is awake, alert, sp3 and in no acute distress. Head/Face: Normocephalic, atraumatic. Eyes: Pupils equal round and reactive to light, extra-ocular motions intact. Lids and lashes normal. Conjunctiva and sclera are non-icteric and not injected. Cornea within normal limits. Periorbital areas with no swelling, redness, or edema. Neck: Trachea midline, no thyromegaly or masses palpated, and no cervical lymphadenopathy. Supple, full range of motion without nuchal rigidity, or vertebral point tenderness. No Meningismus. Chest/axilla: Normal chest wall appearance and motion. Nontender with no deformity. No lesions are appreciated. Cardiovascular: Regular rate and rhythm with a normal S1 and S2. No gallops, murmurs, or rubs. Normal PMI, no JVD. No pulse deficits. Respiratory: Lungs have equal breath sounds bilaterally, clear to auscultation and percussion. No rales, rhonchi or wheezes noted. No increased work of breathing, no retractions or nasal flaring. Skin: Warm, dry with normal turgor. Normal color with no rashes, no lesions, and no evidence of cellulitis. MS/ Extremity: Pulses equal, no cyanosis. Neurovascular intact. Full, normal range of motion. Neuro: Awake and alert, GCS 15, oriented to person, place, time, and situation. Cranial nerves II-XII grossly intact. Motor strength 5/5 in all extremities. Sensory grossly intact. Cerebellar exam normal. Normal gait. Psych: Awake, alert, with orientation to person, place and time. Behavior, mood, and affect are within normal limits. 12:09 Abdomen/GI: Positive CVA tenderness on the right side along with right-sided abdominal pain without peritoneal signs, rebound or guarding. Nonsurgical abdomen is present., Vital Signs: 09:00 BP 141 / 89; Pulse 65; Resp 18; Temp 97.9; Pulse Ox 100% ; Weight 97.52 kg; Height 5 ll1 ft. 5 in. ; Pain 9/10; 10:00 BP 118 / 73; Pulse 51; Resp 18; Pulse Ox 98% on R/A; Pain 10/10; eh3 11:00 BP 131 / 95; Pulse 47; Resp 16; Pulse Ox 100% on R/A; eh3 12:00 BP 116 / 70; Pulse 47; Resp 16; Pulse Ox 99% on R/A; eh3 13:00 BP 105 / 65; Pulse 51; Resp 16; Pulse Ox 98% on R/A; eh3 09:00 Body Mass Index 35.78 (97.52 kg, 165.1 cm) ll1 09:00 Pain Scale: Adult ll1 10:00 Pain Scale: Adult eh3 MDM: 08:55 Patient medically screened. sp3 12:10 Data reviewed: vital signs, nurses notes, lab test result(s), radiologic studies. ED sp3 course: Patient required IV narcotics and antiemetics due to her symptoms here in the ED. CT scan demonstrates 3 mm stone with moderate hydronephrosis on the right side. Laboratory values are within normal limits. Urinalysis demonstrates RBCs and WBCs so we will treat as infected stone. IV Levaquin 500 mL will be given and discharged on diclofenac as well as Levaquin p.o. Follow-up with urology outpatient and return here for any worsening symptoms. She is much improved currently with normal vital signs and she is afebrile.. 07/07 08:58 Order name: CBC with Diff; Complete Time: 10:12 sp3 07/07 08:58 Order name: CMP; Complete Time: 10:56 sp3 07/07 08:58 Order name: Lipase; Complete Time: 10:56 sp3 07/07 08:58 Order name: Test, Urine; Complete Time: 12:03 sp3 07/07 08:58 Order name: Urinalysis w/ reflexes; Complete Time: 12:03 sp3 07/07 11:54 Order name: Urine Culture EDNE 07/07 08:58 Order name: CT Abd/Pelvis - Without Contrast; Complete Time: 10:12 sp3 07/07 08:58 Order name: IV Saline Lock; Complete Time: 09:08 sp3 07/07 08:58 Order name: Labs collected and sent; Complete Time: 09:08 sp3 07/07 09:17 Order name: Labs - recollect needed: recollect green top; Complete Time: 09:29 bd Administered Medications: 09:05 Drug: NS 0.9% IV 1000 ml IV at 1 bolus Per protocol; 1000 mL bolus Route: IV; Rate: 1 db bolus; Site: right forearm; 11:30 Follow up: IV Status: Completed infusion; IV Intake: 1000ml [facility] 09:05 Drug: Ondansetron IVP 4 mg IVP once; over 2 minutes Route: IVP; Site: right forearm; db 10:00 Follow up: Response: No adverse reaction eh3 09:05 Drug: morphine IVP or IV 4 mg IVP once over 4 mins Route: IVP; Infused Over: 4 mins; db Site: right forearm; 10:00 Follow up: Response: No adverse reaction; Pain is unchanged, physician notified; RASS: 3 Alert and Calm (0) 10:01 Drug: Promethazine IVP 12.5 mg IVP once Route: IVP; Site: right antecubital; eh3 11:00 Follow up: Response: No adverse reaction; Nausea is decreased eh3 10:01 Drug: HYDROmorphone IVP 1 mg IVP once Route: IVP; Site: right antecubital; eh3 10:30 Follow up: Response: No adverse reaction; Pain is decreased; RASS: Drowsy (-1) eh3 12:19 Drug: levofloxacin IVPB 500 mg 100 ml IVPB once over 60 mins Volume: 100 ml; Route: eh3 IVPB; Infused Over: 60 mins; Site: right forearm; 13:26 Follow up: Response: No adverse reaction; IV Status: Completed infusion; IV Intake: eh3 100ml 12:32 Drug: Ketorolac IVP 30 mg IVP once Route: IVP; Site: right forearm; eh3 13:25 Follow up: Response: No adverse reaction eh3 12:32 Drug: Ondansetron IVP 4 mg IVP once; over 2 minutes Route: IVP; Site: right forearm; eh3 13:25 Follow up: Response: No adverse reaction; Nausea is decreased eh3 Disposition Summary: 07/07/23 12:11 Discharge Ordered Notes: Location: Home sp3 Condition: Stable sp3 Diagnosis - Ureterolithiasis, kidney stone, UTI sp3 Followup: sp3 - With: Private Physician - When: - Reason: Recheck today's complaints, Continuance of care Discharge Instructions: - Discharge Summary Sheet sp3 - Kidney Stones sp3 - Urinary Tract Infection, Adult sp3 Forms: - Medication Reconciliation Form sp3 - Thank You Letter sp3 - Antibiotic Education sp3 - Prescription Opioid Use sp3 - Patient Portal Instructions sp3 - Leadership Thank You Letter sp3 - Work release form eh3 Prescriptions: - Diclofenac Sodium 75 mg Oral Tablet Sustained Release - take 1 tablet ORAL route 2 times per day; 30 tablet; Refills: 0, Product sp3 Selection Permitted - levofloxacin 500 mg Oral tablet - take 1 tablet ORAL route once daily for 7 days; 7 tablet; Refills: 0, Product sp3 Selection Permitted Signatures: Dispatcher [employer] EDWendy Mendez Lynsay, RN RN ll1 Yandel Hill MD MD sp3 Macarena Barnard RN RN 3 Katie Pantoja RN RN db
--- NOTE | 2023-07-07 12:12 | ER ---
Nurse's Notes [facility] Name: Julisa Keller Age: 32 yrs Sex: Female : 1990 Arrival Date: 07/07/2023 Time: 08:43 Bed 13 Private MD: Diagnosis: Ureterolithiasis, kidney stone, UTI Presentation: 07/07 09:00 Chief complaint: Patient states: Lower abdominal pain and low back pain with N/V since ll1 last night. + hematuria this morning. Coronavirus screen: Client denies travel out of the [place] in the last 14 days. nausea, vomiting. Client presents with at least one sign or symptom that may indicate coronavirus-19. Standard/surgical mask placed on the client. Ebola Screen: Patient denies travel to an Ebola-affected area in the 21 days before illness onset. Initial Sepsis Screen: Does the patient meet any 2 criteria? No. Patient's initial sepsis screen is negative. Does the patient have a suspected source of infection? Yes: Acute abdominal pain. Risk Assessment: Do you want to hurt yourself or someone else? Patient reports no desire to harm self or others. Onset of symptoms was July 06, 2023. 09:00 Method Of Arrival: Ambulatory ll1 09:00 Acuity: CHRISTI 3 ll1 Historical: - Allergies: 08:59 No Known Allergies; ll1 - PMHx: 08:54 Anxiety; ll1 - Immunization history:: Adult Immunizations up to date. - Social history:: Smoking status: Reported history of juuling and/or vaping. Screenin:00 [facility] ED Fall Risk Assessment (Adult) Score/Fall Risk Level 0 - 2 = Low Risk. Abuse eh3 screen: Denies threats or abuse. Denies injuries from another. Nutritional screening: No deficits noted. Tuberculosis screening: No symptoms or risk factors identified. Assessment: 10:00 General: Appears distressed, uncomfortable, Behavior is cooperative, appropriate for eh3 age, restless. Pain: Complains of pain in right flank Pain radiates to abdomen Pain currently is 10 out of 10 on a pain scale. Neuro: Sánchez Agitation-Sedation Scale (RASS): +1 Restless Level of Consciousness is awake, alert, obeys commands, Oriented to person, place, time, situation. Cardiovascular: Capillary refill < 3 seconds Patient's skin is warm and dry. Respiratory: Airway is patent Respiratory effort is even, unlabored, Respiratory pattern is regular, symmetrical. GI: Abdomen is round non-distended. Derm: Skin is pink, warm \T\ dry. Musculoskeletal: Circulation, motion, and sensation intact. 11:00 Reassessment: Patient appears in no apparent distress at this time. Patient and/or eh3 family updated on plan of care and expected duration. Pain level reassessed. Patient is alert, oriented x 3, equal unlabored respirations, skin warm/dry/pink. 12:00 Reassessment: Patient appears in no apparent distress at this time. Patient and/or eh3 family updated on plan of care and expected duration. Pain level reassessed. Patient is alert, oriented x 3, equal unlabored respirations, skin warm/dry/pink. Pain: Complains of pain in right flank Pain currently is 8 out of 10 on a pain scale. 12:20 Reassessment: Pt discharged pending completion of Levofloxacin infusion started now; eh3 100mL remains to be infused. 13:00 Reassessment: Patient appears in no apparent distress at this time. Patient and/or eh3 family updated on plan of care and expected duration. Pain level reassessed. Patient is alert, oriented x 3, equal unlabored respirations, skin warm/dry/pink. Vital Signs: 09:00 BP 141 / 89; Pulse 65; Resp 18; Temp 97.9; Pulse Ox 100% ; Weight 97.52 kg; Height 5 ll1 ft. 5 in. ; Pain 9/10; 10:00 BP 118 / 73; Pulse 51; Resp 18; Pulse Ox 98% on R/A; Pain 10/10; eh3 11:00 BP 131 / 95; Pulse 47; Resp 16; Pulse Ox 100% on R/A; eh3 12:00 BP 116 / 70; Pulse 47; Resp 16; Pulse Ox 99% on R/A; eh3 13:00 BP 105 / 65; Pulse 51; Resp 16; Pulse Ox 98% on R/A; eh3 09:00 Body Mass Index 35.78 (97.52 kg, 165.1 cm) ll1 09:00 Pain Scale: Adult ll1 10:00 Pain Scale: Adult 3 ED Course: 08:44 Patient arrived in ED. rg4 08:47 Yandel Hill MD is Attending Physician. sp3 08:54 Arm band placed on Patient placed in an exam room, on a stretcher. ll1 09:01 Triage completed. ll1 09:08 CBC with Diff Sent. bc6 09:08 CMP Sent. bc6 09:08 Lipase Sent. bc6 09:08 Inserted saline lock: 22 gauge in right forearm, using aseptic technique. Blood bc6 collected. 09:26 Macarena Barnard, RN is Primary Nurse. eh3 09:41 CT Abd/Pelvis - Without Contrast In Process Unspecified. EDMS 10:00 Patient has correct armband on for positive identification. Bed in low position. Call eh3 light in reach. Side rails up X2. Provided Education on: Use of call lopez. Pulse ox on. NIBP on. Door closed. Noise minimized. Lights dimmed. Warm blanket given. 13:27 No provider procedures requiring assistance completed. IV discontinued, intact, eh3 bleeding controlled, No redness/swelling at site. Pressure dressing applied. Administered Medications: 09:05 Drug: NS 0.9% IV 1000 ml IV at 1 bolus Per protocol; 1000 mL bolus Route: IV; Rate: 1 db bolus; Site: right forearm; 11:30 Follow up: IV Status: Completed infusion; IV Intake: 1000ml eh3 09:05 Drug: Ondansetron IVP 4 mg IVP once; over 2 minutes Route: IVP; Site: right forearm; db 10:00 Follow up: Response: No adverse reaction eh3 09:05 Drug: morphine IVP or IV 4 mg IVP once over 4 mins Route: IVP; Infused Over: 4 mins; db Site: right forearm; 10:00 Follow up: Response: No adverse reaction; Pain is unchanged, physician notified; RASS: eh3 Alert and Calm (0) 10:01 Drug: Promethazine IVP 12.5 mg IVP once Route: IVP; Site: right antecubital; eh3 11:00 Follow up: Response: No adverse reaction; Nausea is decreased eh3 10:01 Drug: HYDROmorphone IVP 1 mg IVP once Route: IVP; Site: right antecubital; eh3 10:30 Follow up: Response: No adverse reaction; Pain is decreased; RASS: Drowsy (-1) eh3 12:19 Drug: levofloxacin IVPB 500 mg 100 ml IVPB once over 60 mins Volume: 100 ml; Route: eh3 IVPB; Infused Over: 60 mins; Site: right forearm; 13:26 Follow up: Response: No adverse reaction; IV Status: Completed infusion; IV Intake: eh3 100ml 12:32 Drug: Ketorolac IVP 30 mg IVP once Route: IVP; Site: right forearm; eh3 13:25 Follow up: Response: No adverse reaction eh3 12:32 Drug: Ondansetron IVP 4 mg IVP once; over 2 minutes Route: IVP; Site: right forearm; eh3 13:25 Follow up: Response: No adverse reaction; Nausea is decreased eh3 Medication: 13:27 VIS not applicable for this client. eh3 Intake: 11:30 IV: 1000ml; Total: 1000ml. eh3 13:26 IV: 100ml; Total: 1100ml. eh3 Outcome: 12:11 Discharge ordered by MD. sp3 13:27 Discharged to home ambulatory, eh3 13:27 Discharged to home with family, 13:27 Condition: stable 13:27 Discharge instructions given to patient, Instructed on discharge instructions, follow up and referral plans. medication usage, Demonstrated understanding of instructions, follow-up care, medications, Prescriptions given X 2, 13:27 Patient left the ED. eh3 Signatures: Dispatcher [employer] Beatriz Rhodes rg4 Rizwan Deluca RN RN ll1 Yandel Hill MD MD sp3 Macarena Barnard RN RN eh3 Katie Pantoja RN RN Nikki Neal 6 Corrections: (The following items were deleted from the chart) 11:18 10:00 BP 118 / 73; Pulse 60bpm; Resp 18bpm; Pulse Ox 98% RA; Pain 06/21, Adult; eh3 eh3
[2023-07-07] MEDS ORDERED: Levofloxacin500mg IV 500 MG/100 ML BAG IV ONE (12:29)
[2023-07-07] MEDS ORDERED: KETOROLAC 30 MG/ML INJ ONE (12:40)
[2023-07-07 16:35] VITALS: BP 105/65; TEMP 97.9; O2SAT 98
== END 2023-07-07 13:27 | disposition home or self-care (01) ==
LOC: ER 08:43
DX: N20.2 Calculus of kidney with calculus of ureter (principal); N39.0 Urinary tract infection, site not specified; R11.10 Vomiting, unspecified; F17.290 Nicotine dependence, other tobacco product, uncomplicated
CPT/HCPCS: 36415; 74176; 80053; 81001; 81025; 83690; 85025; 87086; 87088; J1170; J2405; J2550; J7030

== ENCOUNTER 2024-11-27 15:36 | Emergency (ER) | payer SELFPAY ==
--- OUTSIDE RECORDS SUMMARY | 2024-11-27 15:39 | XMS REPORT | Continuity of Care Document ---
Author Name Unknown Address [address] [facility] [address] [place] [address] [facility] Address [address] [facility] [place] [address] Care Team Providers Care Pickle Sorter Name Role Phone MARAL KUMARI Primary Care Physician Unava ilable CHER IQBAL Attending Clinician Unavailable Rasheed Cher MARIO Attending Clinician [phone] Maral Kumari CNM Attending Clinician [phone] MARAL KUMARI Attending Clinician Unavaila ble Doctor Unassigned, Emigrant Attending Clinician U Maral Gaffney MA Attending Clinician Unavailabl e CHARLIE BRITO Attending Clinician Unavail able Charlie Nugent Attending Clinician + Josette Storm Attending Clinician + [phone] JOSETTE MARTINEZ Attending Clinician Unavailab bernadine [facility] Nurse Attending Clinician Unava ilable JOSE LUIS FOWLER Attending Clinician Unavailable JOSE LUIS FOWLER Attending Clinician Unavailable Luke Wakefield MD, [place] Attending Clinician + Jose Luis Fowler MD Attending Clinician [phone] Dain PADGETT, Arlin Attending Clinician [phone] Bebeto PADGETT, Gracie Attending Clinician [phone] Fran PADGETT, Mukesh Gandhi Attending Clinician [phone] Only, Ang Db Test Attending Clinician Unavailjim Reese FURNACE TENDER, Justine Attending Clinician [phone] JUSTINE REESE Attending Clinician UnavailMICHAEL Harris Attending Clinician Unavail able Provider, Ang-Rmchp Temp Attending Clinician Evelyn dominique Villalobos WHCNMichael Rucker Attending Clinician + MARLO TRUJILLO Attending Clinician Unavailable Sherry FURNACE TENDERMarlo Attending Clinician [phone] REGGIE PATINO Attending Clinician Unavailable REGGIE PATINO Attending Clinician Unavailable Reggie Patino DO Attending Clinician [phone] Therapist, Adc Respiratory Attending Clinician U Jose Calvert MD Attending Clinician + [phone] JOSE AZEVEDO Attending Clinician Unavailnacho perez Only, Adc Test Attending Clinician Unavailable Antonio Del Valle MD Attending Clinician [phone] Ultrasound, Ang-Mfm Attending Clinician Unavaila Juan Jose Lacy MD Attending Clinician [phone] JANNA KIRK Attending Clinician Unavailable Janna Kirk MD Attending Clinician [phone] JASON SHULTZ Attending Clinician UnavailJOSE LUIS Mcdonald Admitting Clinician Unavailable Jose Luis Fowler MD Admitting Clinician [phone] Payers Payer Name Policy Type Policy Number Effective Date Expirati on Date Source [id number] 2019 00:00:00 [facility] [id number] 2021 00:00:00 [facility] [id number] 2024 00:00:00 MEDICAID [facility] [id number] 2021 00:00:00 MEDICAID PENDING PENDING 2021 00:00:00 Problems Condition Name Condition Details Condition Category Status Onset Date Resolution Date Last Treatment Date Treating Clinician Comments Source Nexplanon in place Nexplanon in place Disease Active 03-17 00:00: 00 [facility] History of abnormal cervical Pap smear History of abnormal cervical Pap smear Disease Active 03-17 00:00: 00 Overview: Formattin g of this note might be different from the original. 11/2021 negative pap with +HPV07/20 23 negative pap and HPV, repeat 1 year [facility] H/O one miscarriag e H/O one miscarriag e Disease Active 02-27 00:00: 00 [facility] Generalize d anxiety disorder Generalize d anxiety disorder Disease Active 3- 00:00: 00 [facility] Class 2 obesity due to excess calories with body mass index (BMI) of 37.0 to 37.9 in adult, unspecifie d whether serious comorbidit y present Class 2 obesity due to excess calories with body mass index (BMI) of 37.0 to 37.9 in adult, unspecifie d whether serious comorbidit y present Disease Active 3- 00:00: 00 [facility] Nexplanon insertion Nexplanon insertion Disease Resolve d 4-25 00:00: 00 2023-03-17 00:00:00 2023-03-17 11:12:54 [facility] Cervical high risk human papillomav irus (HPV) DNA test positive Cervical high risk human papillomav irus (HPV) DNA test positive Disease Resolve d 4-01 00:00: 00 2023-03-17 00:00:00 2023-03-17 16:35:16 Overview: Formattin g of this note might be different from the original. 11/2021 HPV +-> Will await pap smear results [facility] Dysuria Dysuria Disease Resolve d 3-29 00:00: 00 2023-03-17 00:00:00 2023-03-17 11:12:42 [facility] 40 weeks gestation of 40 weeks gestation of Disease Resolve d 2022-0 2-13 00:00: 00 2023-03-17 00:00:00 2023-03-17 11:12:35 [facility] Positive GBS test Positive GBS test Disease Resolve d 1-20 00:00: 00 2023-03-17 00:00:00 2023-03-17 11:12:56 [facility] Tachycardi a, unspecifie d Tachycardi a, unspecifie d Disease Resolve d 9-08 00:00: 00 2023-03-17 00:00:00 2023-03-17 11:13:04 [facility] Vaginal bleeding Vaginal bleeding Disease Resolve d 7-06 00:00: 00 2023-03-17 00:00:00 2023-03-17 11:12:34 [facility] Multiparit y Multiparit y Disease Resolve d 6-18 00:00: 00 2023-03-17 00:00:00 2023-03-17 11:12:53 [facility] Supervisio n of high risk , antepartum Supervisio n of high risk , antepartum Disease Resolve d 6-18 00:00: 00 2023-03-17 00:00:00 2023-03-17 11:13:03 [facility] H/O one miscarriag e H/O one miscarriag e Disease Resolve d 6-18 00:00: 00 2023-03-17 00:00:00 2023-03-17 11:12:48 [facility] History of anxiety History of anxiety Disease Resolve d 3-02 00:00: 00 2023-03-17 00:00:00 2023-03-17 11:12:46 [facility] History of depression History of depression Disease Resolve d 3-02 00:00: 00 2023-03-17 00:00:00 2023-03-17 11:12:51 [facility] Well woman exam Well woman exam Disease Resolve d 1-30 00:00: 00 2023-03-17 00:00:00 2023-03-17 11:13:06 [facility] UTI (urinary tract infection) UTI (urinary tract infection) Disease Resolve d 2018-09 2-23 00:00: 00 2023-03-17 00:00:00 2023-03-17 11:12:33 [facility] Nexplanon removal Nexplanon removal Disease Resolve d 4-03 00:00: 00 2023-03-17 00:00:00 2023-03-17 11:12:55 [facility] Contracept fortino management Contracept fortino management Disease Resolve d 10-10 00:00: 00 2023-03-17 00:00:00 2023-03-17 11:12:40 [facility] Former smoker Former smoker Disease Resolve d 10-10 00:00: 00 2023-03-17 00:00:00 2023-03-17 11:12:43 [facility] BMI 37.0-37.9, adult BMI 37.0-37.9, adult Disease Resolve d 1 00:00: 00 2023-03-17 00:00:00 2023-03-17 11:12:36 [facility] Class 2 obesity due to excess calories with body mass index (BMI) of 37.0 to 37.9 in adult, unspecifie d whether serious comorbidit y present Class 2 obesity due to excess calories with body mass index (BMI) of 37.0 to 37.9 in adult, unspecifie d whether serious comorbidit y present Disease Resolve d 3-04 00:00: 00 2023-03-17 00:00:00 2023-03-17 11:12:39 [facility] Rh negative state in antepartum period, third trimester Rh negative state in antepartum period, third trimester Disease Resolve d 6-21 00:00: 00 2021-12-08 00:00:00 2021-12-08 14:19:33 [facility] Migraines Migraines Disease Resolve d 3-05 00:00: 2018-10-10 00:00:00 2018-10-10 10:57:25 [facility] Tobacco use disorder Tobacco use disorder Disease Resolve d 11-13 00:00: 00 2018-10-10 00:00:00 2018-10-10 10:57:27 [facility] Blurred vision Blurred vision Disease Resolve d 11-14 00:00: 00 2018-05-10 00:00:00 2018-05-10 10:26:23 [facility] Need for Tdap vaccinatio n Need for Tdap vaccinatio n Disease Resolve d 02-07 00:00: 00 2017-06-30 00:00:00 2022-03-28 00:30:30 [facility] Late care Late care Disease Resolve d 11-14 00:00: 00 2017-06-30 00:00:00 2017-06-30 10:07:25 [facility] Bacterial vaginosis Bacterial vaginosis Disease Resolve d 11-13 00:00: 00 2017-06-30 00:00:00 2017-06-30 10:07:22 [facility] Normal delivery Normal delivery Disease Resolve d 2010-0920 00:00: 00 2013-11-13 00:00:00 2013-11-13 14:50:18 [facility] Allergies, Adverse Reactions, Alerts Allergy Name Allergy Type Status Severity Reaction(s) Onset Date Inactive Date Treating Clinician Comments Source NO KNOWN ALLERGIE S Drug Class Active [facility] Social History Social Habit Start Date Stop Date Quantity Comments Source Gender identity Univ [facility] Alcoholic beverage intake 2024-08-29 00:00:00 2024-08-29 00:00:00 Current drinker of alcohol (finding) [facility] Cigarettes smoked current (pack per day) - Reported 2024-08-28 00:00:00 2024-08-28 00:00:00 [facility] Tobacco use and exposure 2024-08-28 00:00:00 2024-08-28 00:00:00 Smokeless tobacco non-user [facility] History of Social function 2024-08-28 00:00:00 2024-08-28 00:00:00 [facility] Cigarette pack-years 2024-08-28 00:00:00 2024-08-28 00:00:00 [facility] Alcohol Comment 2023-03-17 00:00:00 2023-03-17 00:00:00 on occassion [facility] Exposure to SARS-CoV-2 (event) 2021-12-25 00:00:00 2022-01-04 09:07:00 Not sure [facility] Alcohol intake 2021-05-14 00:00:00 2021-05-14 00:00:00 Current drinker of alcohol (finding) [facility] History of tobacco use 2017-05-13 00:00:00 2020-10-12 00:00:00 Cigarette Smoker [facility] Sex assigned at 1990 00:00:00 1990 00:00:00 [facility] Smoking Status Start Date Stop Date Source Ex-smoker 2024-08-28 00:00:00 2024-08-28 00:00:[address] [facility] Medications Ordered Medication Name Filled Medication Name Start Date Stop Date Current Medication? Ordering Clinician Indication Dosage Frequency Signature (SIG) Comments Components Source fluconazole 150 mg tablet 2023-09 00:00: 00 08-30 05:59 :00 Yes [id number] 150mg Take 1 tablet by mouth once now for 1 dose. [facility] metroNIDAZO LE 500 mg tablet 2023-09 00:00: 00 Yes [id number] 500mg Take 1 tablet by mouth every 12 (twelve) hours. [facility] metroNIDAZO LE 500 mg tablet 03-18 00:00: 00 03-26 04:59 :00 No [id number] 500mg Take 1 tablet by mouth in the morning and 1 tablet in the evening. Do all this for 7 days. [facility] etonogestre L (NEXPLANON) implant 68 mg 01-04 15:30: 00 01-04 14:31 :00 No [id number] 68mg Univer s [facility] No known medications 4-25 09:36: 31 No [facility] vit 33-iron-fol ic-dha (SELECT-OB + DHA) 29 mg iron-1 mg -250 mg combo pack 03-04 00:00: 00 08-24 00:00 :00 No [id number] 1{packe t} Take 1 Packet by mouth daily. [facility] Immunizations Ordered Immunization Name Filled Immunization Name Date Status Comments Source TDAP 2021-08-03 00:00:00 Completed [facility] Rho (d) Immune Globulin 2021-08-03 00:00:00 Completed [facility] TDAP 2021-08-03 00:00:00 Completed [facility] Rho (d) Immune Globulin 2021-08-03 00:00:00 Completed [facility] TDAP 2021-08-03 00:00:00 Completed [facility] Rho (d) Immune Globulin 2021-08-03 00:00:00 Completed [facility] TDAP 2021-08-03 00:00:00 Completed [facility] Rho (d) Immune Globulin 2021-08-03 00:00:00 Completed [facility] TDAP 2021-08-03 00:00:00 Completed [facility] Rho (d) Immune Globulin 2021-08-03 00:00:00 Completed [facility] TDAP 2021-08-03 00:00:00 Completed [facility] Rho (d) Immune Globulin 2021-08-03 00:00:00 Completed [facility] TDAP 2021-08-03 00:00:00 Completed [facility] Rho (d) Immune Globulin 2021-08-03 00:00:00 Completed [facility] TDAP 2021-08-03 00:00:00 Completed Rho (d) Immune Globulin 2021-08-03 00:00:00 Completed HPV9 2020-11-11 00:00:00 Completed [facility] HPV9 2020-11-11 00:00:00 Completed [facility] HPV9 2020-11-11 00:00:00 Completed [facility] HPV9 2020-11-11 00:00:00 Completed [facility] HPV9 2020-11-11 00:00:00 Completed [facility] HPV9 2020-11-11 00:00:00 Completed [facility] HPV9 2020-11-11 00:00:00 Completed [facility] HPV9 2020-11-11 00:00:00 Completed HPV9 2019-10-11 00:00:00 Completed [facility] HPV9 2019-10-11 00:00:00 Completed [facility] HPV9 2019-10-11 00:00:00 Completed [facility] HPV9 2019-10-11 00:00:00 Completed [facility] HPV9 2019-10-11 00:00:00 Completed [facility] HPV9 2019-10-11 00:00:00 Completed [facility] HPV9 2019-10-11 00:00:00 Completed [facility] HPV9 2019-10-11 00:00:00 Completed [facility] Influenza Virus Vaccine Quad ID 18-64 YRS 2018-06-12 00:00:00 Completed [facility] Influenza Virus Vaccine Quad ID 18-64 YRS 2018-06-12 00:00:00 Completed [facility] Influenza Virus Vaccine Quad ID 18-64 YRS 2018-06-12 00:00:00 Completed [facility] Influenza Virus Vaccine Quad ID 18-64 YRS 2018-06-12 00:00:00 Completed [facility] Influenza Virus Vaccine Quad ID 18-64 YRS 2018-06-12 00:00:00 Completed [facility] Influenza Virus Vaccine Quad ID 18-64 YRS 2018-06-12 00:00:00 Completed [facility] Influenza Virus Vaccine Quad ID 18-64 YRS 2018-06-12 00:00:00 Completed [facility] Influenza Virus Vaccine Quad ID 18-64 YRS 2018-06-12 00:00:00 Completed [facility] HPV9 2017-06-30 00:00:00 Completed [facility] TDAP 2017-06-30 00:00:00 Completed [facility] HPV9 2017-06-30 00:00:00 Completed [facility] TDAP 2017-06-30 00:00:00 Completed [facility] HPV9 2017-06-30 00:00:00 Completed [facility] TDAP 2017-06-30 00:00:00 Completed [facility] HPV9 2017-06-30 00:00:00 Completed [facility] TDAP 2017-06-30 00:00:00 Completed [facility] HPV9 2017-06-30 00:00:00 Completed [facility] TDAP 2017-06-30 00:00:00 Completed [facility] HPV9 2017-06-30 00:00:00 Completed [facility] TDAP 2017-06-30 00:00:00 Completed [facility] HPV9 2017-06-30 00:00:00 Completed [facility] TDAP 2017-06-30 00:00:00 Completed [facility] HPV9 2017-06-30 00:00:00 Completed [facility] TDAP 2017-06-30 00:00:00 Completed Influenza Virus Vaccine 2017-06-12 00:00:00 Completed [facility] Influenza Virus Vaccine 2017-06-12 00:00:00 Completed [facility] Influenza Virus Vaccine 2017-06-12 00:00:00 Completed [facility] Influenza Virus Vaccine 2017-06-12 00:00:00 Completed [facility] Influenza Virus Vaccine 2017-06-12 00:00:00 Completed [facility] Influenza Virus Vaccine 2017-06-12 00:00:00 Completed [facility] Influenza Virus Vaccine 2017-06-12 00:00:00 Completed [facility] Influenza Virus Vaccine 2017-06-12 00:00:00 Completed [facility] Rho (d) Immune Globulin 2014-02-07 00:00:00 Completed [facility] Rho (d) Immune Globulin 2014-02-07 00:00:00 Completed [facility] Rho (d) Immune Globulin 2014-02-07 00:00:00 Completed [facility] Rho (d) Immune Globulin 2014-02-07 00:00:00 Completed [facility] Rho (d) Immune Globulin 2014-02-07 00:00:00 Completed [facility] Rho (d) Immune Globulin 2014-02-07 00:00:00 Completed [facility] Rho (d) Immune Globulin 2014-02-07 00:00:00 Completed [facility] Rho (d) Immune Globulin 2014-02-07 00:00:00 Completed Rho (d) Immune Globulin 2011-07-31 00:00:00 Completed [facility] Rho (d) Immune Globulin 2011-07-31 00:00:00 Completed [facility] Rho (d) Immune Globulin 2011-07-31 00:00:00 Completed [facility] Rho (d) Immune Globulin 2011-07-31 00:00:00 Completed [facility] Rho (d) Immune Globulin 2011-07-31 00:00:00 Completed [facility] Rho (d) Immune Globulin 2011-07-31 00:00:00 Completed [facility] Rho (d) Immune Globulin 2011-07-31 00:00:00 Completed [facility] Rho (d) Immune Globulin 2011-07-31 00:00:00 Completed [facility] Rubella 2011-01-15 00:00:00 Completed [facility] Rubella 2011-01-15 00:00:00 Completed [facility] Rubella 2011-01-15 00:00:00 Completed [facility] Rubella 2011-01-15 00:00:00 Completed [facility] Rubella 2011-01-15 00:00:00 Completed [facility] Rubella 2011-01-15 00:00:00 Completed [facility] Rubella 2011-01-15 00:00:00 Completed [facility] Rubella 2011-01-15 00:00:00 Completed Td 2006-09-12 00:00:00 Completed [facility] Td 2006-09-12 00:00:00 Completed [facility] TD, NOS 2006-09-12 00:00:00 Completed [facility] TD, NOS 2006-09-12 00:00:00 Completed [facility] TD, NOS 2006-09-12 00:00:00 Completed [facility] TD, NOS 2006-09-12 00:00:00 Completed [facility] TD, NOS 2006-09-12 00:00:00 Completed [facility] TD, NOS 2006-09-12 00:00:00 Completed [facility] Rho (d) Immune Globulin Unknown Completed [facility] TD, NOS Unknown Completed [facility] Rubella Unknown Completed [facility] HPV9 Unknown Completed [facility] TDAP Unknown Completed [facility] Influenza Virus Vaccine Quad ID 18-64 YRS Unknown Completed [facility] Influenza Virus Vaccine Unknown Completed [facility] Vital Signs Vital Name Observation Time Observation Value Comments S ource Systolic blood pressure 2024-08-28 17:18:00 120 mm[Hg] [facility] Diastolic blood pressure 2024-08-28 17:18:00 82 mm[Hg] [facility] Heart rate 2024-08-28 17:18:00 83 /min [facility] Body temperature 2024-08-28 17:18:00 36.83 Rani [facility] Respiratory rate 2024-08-28 17:18:00 18 /min [facility] Body height 2024-08-28 17:18:00 162.6 cm [facility] Body weight 2024-08-28 17:18:00 98.601 kg [facility] BMI 2024-08-28 17:18:00 37.31 kg/m2 [facility] Systolic blood pressure 2023-03-17 15:47:00 119 mm[Hg] [facility] Diastolic blood pressure 2023-03-17 15:47:00 74 mm[Hg] [facility] Heart rate 2023-03-17 15:47:00 65 /min [facility] Body temperature 2023-03-17 15:47:00 36.44 Rani [facility] Respiratory rate 2023-03-17 15:47:00 18 /min [facility] Body height 2023-03-17 15:47:00 162.6 cm [facility] Body weight 2023-03-17 15:47:00 98.884 kg [facility] BMI 2023-03-17 15:47:00 37.42 kg/m2 [facility] Systolic blood pressure 2022-01-04 14:07:00 118 mm[Hg] [facility] Diastolic blood pressure 2022-01-04 14:07:00 57 mm[Hg] [facility] Heart rate 2022-01-04 14:07:00 55 /min [facility] Body temperature 2022-01-04 14:07:00 36.44 Rani [facility] Respiratory rate 2022-01-04 14:07:00 20 /min [facility] Body height 2022-01-04 14:07:00 162.6 cm [facility] Body weight 2022-01-04 14:07:00 102.173 kg [facility] BMI 2022-01-04 14:07:00 38.66 kg/m2 [facility] Procedures Procedure Date / Time Performed Performing Clinician Source HIV 1/2 AG-AB WITH REFLEX 2024-08-28 18:00:00 Cher Iqbal [facility] SYPHILIS IGG/IGM 2024-08-28 18:00:00 [facility] W/O SPECIFIC GRAVITY 2024-08-28 17:27:00 Cher Iqbal [facility] POCT URINALYSIS W/O SPECIFIC GRAVITY 2023-03-17 15:50:00 Maral Kumari [facility] ASSIGNMENT OF BENEFITS 2023-03-17 15:15:38 Docto r Unassigned, Emigrant [facility] POCT TEST 2022-01-04 14:09:00 Kevin Brito [facility] CONSENT FOR CONTRACEPTION 2022-01-04 05:01:00 Doctor Unassigned, Emigrant [facility] Encounters Start Date/Time End Date/Time Encounter Type Admission Type Attending Clinicians Care Facility Care Department Encounter ID Source 2021-07-12 14:37:36 Emergency [facility] [id number] [facility] 2021-07-12 10:13:11 Emergency [facility] [id number] [facility] 2021-07-12 02:08:25 Emergency [facility] [id number] [facility] 2024-10-10 09:07:31 2024-10-10 09:07:31 Outpatient [facility] [id number] [facility] 2024-10-05 10:45:00 2024-10-05 10:45:00 Outpatient R CHER IQBAL [facility] [id number] [facility] 2024-10-05 10:45:00 2024-10-05 10:45:00 Outpatient R RASHEED CHER [facility] [id number] [facility] 2024-08-29 00:00:00 2024-08-29 16:39:19 Case Management Cher Iqbal [facility] CAGER OPERATOR [facility] MATERNAL & CHILD [facility] 1..[id number] [facility] 2024-08-28 11:00:00 2024-08-28 12:02:59 Outpatient R CHER IQBAL [facility] [id number] [facility] 2024-08-28 11:00:00 2024-08-28 12:02:59 Office Visit Cher Iqbal [facility] CAGER OPERATOR [facility] MATERNAL & CHILD [facility] 1..840.114 [id number] [facility] 2024-08-28 11:00:00 2024-08-28 11:00:00 Outpatient R CHER IQBAL [facility] [id number] [facility] 2023-03-30 00:00:00 2023-03-30 00:00:00 Telephone Maral Kumari [facility] CAGER OPERATOR [facility] MATERNAL & CHILD [facility] 1..840.114 [id number] [facility] 2023-03-18 00:00:00 2023-03-18 00:00:00 Case Management Maral Kumari [facility] CAGER OPERATOR [facility] & CHILD [facility] [id number] [facility] 2023-03-17 10:15:00 2023-03-17 11:36:03 Outpatient R MARAL KUMARI [facility] [id number] [facility] 2023-03-17 10:15:00 2023-03-17 11:36:03 Office Visit Maral Kumari [facility] CAGER OPERATOR [facility] MATERNAL & CHILD [facility] [id number] [facility] 2023-03-17 00:00:00 2023-03-17 00:00:00 Orders Only Doctor Unassigned, [employer] 1.0.114 350.1.13.10 4.2.7.2.686 [id number] [facility] 2023-01-14 00:00:00 2023-01-14 00:00:00 Case Management Maral Temple 1..114 350.1.13.10 4.2.7.2.686 [id number] [facility] 2022-01-25 09:30:00 2022-01-25 09:30:00 Outpatient R CHARLIE BRITO [facility] [id number] [facility] 2022-01-04 08:30:00 2022-01-04 09:36:02 Outpatient R CHARLIE BRITO [facility] [id number] [facility] 2022-01-04 08:30:00 2022-01-04 09:36:02 Office Visit Charlie Brito [facility]ER OPERATOR [facility] CHILD [facility] 1.0.114 350.1.13.10 4.2.7.2.686 [id number] 107 [id number] [facility] 2022-01-04 00:00:00 2022-01-04 00:00:00 Orders Only Doctor Unassigned, [employer] 1.2.840.114 350.1.13.10 4.2.7.2.686 [id number] [facility] 2021-12-24 08:30:00 2021-12-24 08:30:00 Outpatient CHARLIE KEYES [facility] [id number] [facility] 2021-12-18 00:00:00 2021-12-18 00:00:00 Telephone Josette Martinez [facility] 1.2.840.114 350.1.13.10 4.2.7.2.686 [id number] [facility] 2021-12-08 12:45:00 2021-12-08 14:05:05 Outpatient JOSETTE ALLEN [facility] [id number] [facility] 2021-12-08 12:45:00 2021-12-08 14:05:05 Office Visit Josette Martinez [facility]ER OPERATOR [facility] 1.2.840.114 350.1.13.10 4.2.7.2.686 [id number] [facility] 2021-12-08 12:45:00 2021-12-08 14:05:05 Outpatient JOSETTE ALLEN [facility] [id number] [facility] 2021-12-08 12:45:00 2021-12-08 12:45:00 Outpatient JOSETTE ALLEN [facility] [id number] [facility] 2021-11-17 11:00:00 2021-11-17 11:40:00 Outpatient JOSETTE ALLEN [facility] [id number] [facility] 2021-11-17 11:00:00 2021-11-17 11:40:00 Routine Visit Reid Martineznacho Manuel [facility] CAGER OPERATOR [facility]NAL & CHILD [facility] 1..840.114 350.1.13.10 4.2.7.2.686 [id number] 107 [id number] [facility] 2021-11-17 11:00:00 2021-11-17 11:40:00 [facility] [id number] [facility] 2021-11-17 00:00:00 2021-11-17 00:00:00 Orders Only Doctor Unassigned, [place] [facility] 1.840.114 350.1.13.10 4.2.7.2.686 [id number] [facility] 2021-11-02 10:00:00 2021-11-02 10:41:02 Nurse Visit Visit, [facility] Nurse Reid Martineznacho [facility] CAGER OPERATOR [facility] MATERNAL & CHILD [facility] 1.840.114 350.1.13.10 4.2.7.2.686 [id number] [facility] 2021-11-02 10:00:00 2021-11-02 10:00:00 Outpatient FLAVIA ALLENMYNORNacho [facility] [id number] [facility] 2021-10-25 07:44:00 2021-10-28 12:37:00 Inpatient P JOSE LUIS [facility] ROULA [id number] [facility] 2021-10-25 07:44:00 2021-10-28 12:37:00 Hospital Encounter Brooklynn Ferrari [facility] 1.84.114 350.1.13.10 4.2.7.2.686 [id number] [facility] 2021-10-26 05:45:00 2021-10-26 19:38:00 Anesthesia Event Arlin Gautam Sarah [facility] 1.2.840.114 350.1.13.10 4.2.7.2.686 [id number] [facility] 2021-10-26 06:02:00 2021-10-26 07:43:00 Surgery Peters, Mukesh Gandhi [facility] 1.2.840.114 350.1.13.10 4.2.7.2.686 [id number] [facility] 2021-10-19 10:15:00 2021-10-19 10:59:16 Outpatient JOSETTE ALLEN [facility] [id number] [facility] 2021-10-19 10:15:00 2021-10-19 10:59:16 Routine Visit Josette Martinez [facility] CAGER OPERATOR [facility] 1.2.840.114 350.1.13.10 4.2.7.2.686 [id number] [facility] 2021-10-12 11:00:00 2021-10-12 11:38:27 Outpatient JOSETTE ALLEN [facility] [id number] [facility] 2021-10-12 11:00:00 2021-10-12 11:38:27 Routine Visit Josette Martinez [facility] CAGER OPERATOR [facility] 1.2.840.114 350.1.13.10 4.2.7.2.686 [id number] 107 [id number] [facility] 2021-10-06 11:00:00 2021-10-06 11:00:00 Outpatient JOSETTE ALLEN [facility] [id number] [facility] 2021-10-06 11:00:00 2021-10-06 11:00:00 Outpatient JOSETTE ALLEN [facility] [id number] [facility] 2021-10-05 00:00:00 2021-10-05 00:00:00 Telephone Charlie Brito Brandy [facility] CAGER OPERATOR [facility] & CHILD [facility] 1.2.840.114 350.1.13.10 4.2.7.2.686 [id number] [facility] 2021-10-02 00:00:00 2021-10-02 00:00:00 Telephone Charlie Brito Brandy [facility] CAGER OPERATOR [facility] 1.2.840.114 350.1.13.10 4.2.7.2.686 [id number] 107 [id number] [facility] 2021-10-01 00:00:00 2021-10-01 00:00:00 Telephone Josette Martinez [facility] CAGER OPERATOR [facility] 1.2840.114 350.1.13.10 4.2.7.2.686 [id number] [facility] 2021-09-29 12:45:00 2021-09-29 14:11:40 Outpatient R ERIKRODNEYCHARLIE [facility] [id number] [facility] 2021-09-29 12:45:00 2021-09-29 14:11:40 Routine Visit Erikfazaldenisse Charlie Nava [facility] CAGER OPERATOR [facility] 1.2840.114 350.1.13.10 4.2.7.2.686 [id number] [facility] 2021-09-22 11:00:00 2021-09-22 11:00:00 Outpatient R JOSETTE MARTINEZ [facility] [id number] [facility] 2021-09-21 00:00:00 2021-09-21 00:00:00 Telephone Josette Martinez [facility] CAGER OPERATOR [facility] 1.2.840.114 350.1.13.10 4.2.7.2.686 [id number] 107 [id number] [facility] 2021-09-18 20:15:00 2021-09-18 20:30:00 Laboratory Only Only, Ang Db Test Justine Reese [facility] YESSENIA[facility] 1..840.114 350.1.13.10 4.2.7.2.686 [id number] [facility] 2021-09-18 20:15:00 2021-09-18 20:15:00 Outpatient R JUSTINE REESE [facility] [id number] [facility] 2021-09-08 11:00:00 2021-09-08 11:38:16 Routine Visit Josette Martinez [facility] CAGER OPERATOR [facility] MATERNAL & CHILD [facility] 1..840.114 350.1.13.10 4.2.7.2.686 [id number] [facility] 2021-09-08 11:00:00 2021-09-08 11:38:16 Outpatient R MARTINEZ KENDRAHERMAN [facility] [id number] [facility] 2021-09-08 11:00:00 2021-09-08 11:00:00 Outpatient R MARTINEZJOSETTE [facility] [id number] [facility] 2021-08-25 10:45:00 2021-08-25 11:31:52 Outpatient R JOSETTE MARTINEZ [facility] [id number] [facility] 2021-08-25 10:37:25 2021-08-25 11:31:52 Routine Visit Josette Martinez [facility] CAGER OPERATOR [facility] & CHILD [facility] 1..840.114 350.1.13.10 4.2.7.2.686 [id number] 107 [id number] [facility] 2021-08-24 00:00:00 2021-08-24 00:00:00 Refill Josette Martinez [facility] CAGER OPERATOR [facility] 1.840.114 350.1.13.10 4.2.7.2.686 [id number] 107 [id number] [facility] 2021-08-19 09:15:00 2021-08-19 09:15:00 Outpatient R [facility] [id number] [facility] 2021-08-19 09:15:00 2021-08-19 09:15:00 Outpatient R MICHAEL VILLALOBOS [facility] [id number] [facility] 2021-08-17 00:00:00 2021-08-17 00:00:00 Telephone Josette Martinez [facility] CAGER OPERATOR [facility] MAT[facility] & CHILD [facility] 1.840.114 350.1.13.10 4.2.7.2.686 [id number] [facility] 2021-08-03 09:30:00 2021-08-03 10:14:33 Outpatient R MICHAEL VILLALOBOS [facility] [id number] [facility] 2021-08-03 09:19:45 2021-08-03 10:14:33 Routine Visit Provider, Maral Galdamez Mellerie O [facility] CAGER OPERATOR [facility] 1.840.114 350.1.13.10 4.2.7.2.686 [id number] 107 [id number] [facility] 2021-07-21 11:35:00 2021-07-21 14:50:00 Emergency X MARLO TRUJILLO [facility] ERT [id number] [facility] 2021-07-21 11:35:00 2021-07-21 14:50:00 Emergency Marlo Trujillo [facility] 1.840.114 350.1.13.10 4.2.7.2.686 [id number] [facility] 2021-07-21 00:00:00 2021-07-21 00:00:00 Orders Only Doctor Unassigned, [place] 1.84.114 350.1.13.10 4.2.7.2.686 [id number] [facility] 2021-07-20 09:17:14 2021-07-20 10:10:07 Routine Visit Provider, Michael Cespedes [facility] CAGER OPERATOR [facility]ILD [facility] 1.84.114 350.1.13.10 4.2.7.2.686 [id number] [facility] 2021-07-20 09:15:00 2021-07-20 10:10:07 Outpatient MICHAEL REED [facility] [id number] [facility] 2021-07-20 09:15:00 2021-07-20 09:15:00 Outpatient MICHAEL REED [facility] [id number] [facility] 2021-07-17 16:10:00 2021-07-17 16:10:00 Outpatient REGGIE WARNER SHIWAN [facility] [id number] [facility] 2021-07-17 14:02:31 2021-07-17 14:35:18 [facility] 1.840.114 350.1.13.10 4.2.7.2.686 [id number] [facility] 2021-07-17 14:00:00 2021-07-17 14:35:18 Outpatient REGGIE WARNER SHIWAN [facility] [id number] [facility] 2021-07-02 12:13:37 2021-07-02 13:43:37 Hazard Mitigation Officer Visit Therapist, Jose Mark [facility] 1.840.114 350.1.13.10 4.2.7.2.686 [id number] [facility] 2021-07-02 12:00:00 2021-07-02 12:00:00 Outpatient R AZEVEDO JOSE [facility] [id number] [facility] 2021-07-02 00:00:00 2021-07-02 00:00:00 Orders Only Reggie Patino [facility] ..114 350.1.13.10 4.2.7.2.686 [id number] [facility] 2021-06-29 09:09:25 2021-06-29 09:24:25 Laboratory Only Only, Adc Antonio Ortiz [facility] 1..114 350.1.13.10 4.2.7.2.686 [id number] [facility] 2021-06-29 08:15:00 2021-06-29 08:15:00 Outpatient R [facility] [id number] [facility] 2021-06-22 00:00:00 2021-06-22 00:00:00 Telephone Michael Villalobos [facility] CAGER OPERATOR [facility]ILD [facility] 1..114 350.1.13.10 4.2.7.2.686 [id number] [facility] 2021-06-18 00:00:00 2021-06-18 00:00:00 [facility] ..114 350.1.13.10 4.2.7.2.686 [id number] 107 [id number] [facility] 2021-06-17 09:51:28 2021-06-17 10:47:55 Routine Visit Provider, Michael Cespedes [facility] CAGER OPERATOR [facility] 1.2840.114 350.1.13.10 4.2.7.2.686 [id number] 107 [id number] [facility] 2021-06-17 09:45:00 2021-06-17 09:45:00 Outpatient R [facility] [id number] [facility] 2021-06-02 00:00:00 2021-06-02 00:00:00 Abstract Josette Martinez [facility] CAGER OPERATOR [facility] 1..840.114 350.1.13.10 4.2.7.2.686 [id number] 107 [id number] [facility] 2021-06-01 10:32:23 2021-06-01 11:58:25 Hazard Mitigation Officer Visit Ultrasound, Juan Jose Burgos [facility] CAGER OPERATOR [facility]ILD [facility] 1..840.114 350.1.13.10 4.2.7.2.686 [id number] [facility] 2021-06-01 10:45:00 2021-06-01 10:45:00 Outpatient P [facility] [id number] [facility] 2021-05-20 10:35:51 2021-05-20 10:50:51 Routine Visit Josette Martinez [facility] 1..840.114 350.1.13.10 4.2.7.2.686 [id number] [facility] 2021-05-20 10:45:00 2021-05-20 10:45:00 Outpatient R JOSETTE MARTINEZ [facility] [id number] [facility] 2021-05-18 08:00:00 2021-05-18 08:00:00 Outpatient R JANNA KIRK [facility] [id number] [facility] 2021-05-15 00:00:00 2021-05-15 00:00:00 [facility].840.114 350.1.13.10 4.2.7.2.686 [id number] [facility] 2021-05-14 15:52:50 2021-05-14 23:59:00 [facility].114 350.1.13.10 4.2.7.2.686 [id number] [facility] 2021-05-14 16:00:00 2021-05-14 16:00:00 [facility] [id number] [facility] 2021-05-14 10:58:07 2021-05-14 11:28:07 Office Visit Reggie Patino [facility] 1.2.840.114 350.1.13.10 4.2.7.2.686 [id number] [facility] 2021-05-12 13:00:00 2021-05-12 13:00:00 [facility] [id number] [facility] 2021-05-06 00:00:00 2021-05-06 00:00:00 Telephone Ros[facility] 1.2.840.114 350.1.13.10 4.2.7.2.686 [id number] [facility] 2021-04-29 08:00:00 2021-04-29 08:00:00 Out[facility] [id number] [facility] 2021-04-22 10:45:00 2021-04-22 10:45:00 Outpatient R JOSETTE MARTINEZ [facility] [id number] [facility] 2021-04-17 08:40:00 2021-04-17 08:40:00 Outpatient R JANNA KIRK [facility] [id number] [facility] 2021-03-30 10:28:14 2021-03-30 10:58:14 Hazard Mitigation Officer [facility] CHILD [facility] 1.2.840.114 350.1.13.10 4.2.7.2.686 [id number] 2021-03-30 10:15:00 2021-03-30 10:15:00 Outpatient P [facility] [id number] [facility] 2021-03-30 00:00:00 2021-03-30 00:00:00 Telephone Josette Martinez [facility] CAGER OPERATOR [facility] 1.2.840.114 350.1.13.10 4.2.7.2.686 [id number] 2021-03-30 00:00:00 2021-03-30 00:00:00 Abstract Josette Martinez [facility] CAGER OPERATOR [facility] 1.2.840.114 350.1.13.10 4.2.7.2.686 [id number] 107 [id number] 2021-03-25 10:21:17 2021-03-25 11:02:19 Routine Visit Josette Martinez [facility] CAGER OPERATOR [facility] 1.2.840.114 350.1.13.10 4.2.7.2.686 [id number] 107 [id number] 2021-03-25 10:15:00 2021-03-25 10:15:00 Outpatient R JOSETTE MARTINEZ [facility] [id number] [facility] 2021-03-18 00:00:00 2021-03-18 00:00:00 Telephone Josette Martinez [facility] CAGER OPERATOR [facility] 1.2.840.114 350.1.13.10 4.2.7.2.686 [id number] 107 [id number] 2021-03-17 17:00:00 2021-03-17 17:00:00 Outpatient Manuel JOSETTE MARTINEZ [facility] [id number] [facility] 2021-03-17 13:23:36 2021-03-17 14:08:02 Routine Visit MartinezJosette [facility] CAGER OPERATOR [facility] 1.2.840.114 350.1.13.10 4.2.7.2.686 [id number] 2021-03-17 00:00:00 2021-03-17 00:00:00 Telephone CarrollJosette [facility] CAGER OPERATOR [facility] 1.2.840.114 350.1.13.10 4.2.7.2.686 [id number] 107 [id number] 2021-03-05 00:00:00 2021-03-05 00:00:00 Telephone Kendra Martinezherman Jackson [facility] CAGER OPERATOR [facility] 1.2.840.114 350.1.13.10 4.2.7.2.686 [id number] 107 [id number] 2021-03-04 00:00:00 2021-03-04 00:00:00 Telephone CarrollJosette [facility] CAGER OPERATOR [facility] 1.2.840.114 350.1.13.10 4.2.7.2.686 [id number] 2021-02-27 09:15:00 2021-02-27 09:15:00 Outpatient R JOSETTE MARTINEZ [facility] [id number] [facility] 2021-01-19 10:15:00 2021-01-19 10:15:00 Outpatient JASON TAYLOR [facility] [id number] [facility] 2020-12-24 15:30:00 2020-12-24 15:30:00 Outpatient R JOSETTE MARTINEZ [facility] [id number] [facility] 2020-12-24 15:30:00 2020-12-24 15:30:00 Outpatient JOSETTE ALLEN [facility] [id number] [facility] 2020-11-11 09:15:00 2020-11-11 09:15:00 Outpatient R [facility] [id number] [facility] Results Test Description Test Time Test Comments Results Result Co mments [facility] WITH [id number] 08:06:38* Test Item Value Reference Range Interpretation Comme nts HIV Semi-quantitative (test code = 71733-3) 0.10 Negative CLARA (test code = CLARA) Non-reactive for HIV-1 antigen and HIV-1/HIV-2 antibodies. ?No laboratory evidence of HIV infection. ?Repeat in 2-4 weeks if acute HIV infection is suspected. [facility] Urinalysis w/o Specific [id number] 17:27:00* Test Item Value Reference Range Interpretation Comme nts POCT PH U (test code = 3254) 7 mg/dl 5-8 POCT U LEUK EST (test code = 3263) Trace Negative - Negative POCT U NIT (test code = 3262) Neg Negative - Negati ve POCT U PROT (test code = 3259) Trace Negative - Negat fortino POCT U GLU (test code = 3256) Nml Negative - Negati ve POCT U KETONE (test code = 3258) None Negative - Neg ative POCT U BLD (test code = 3257) Trace Negative - Negati ve [facility] W/O SPECIFIC [id number] 15:50:00* Test Item Value Reference Range Interpretation Comme nts POCT PH U (test code = 3254) 5 mg/dl 5-8 POCT U LEUK EST (test code = 3263) 1+ Negative - Negative POCT U NIT (test code = 3262) Neg Negative - Negati ve POCT U PROT (test code = 3259) Trace Negative - Negat fortino POCT U GLU (test code = 3256) Neg Negative - Negati ve POCT U KETONE (test code = 3258) Small Negative - Neg ative POCT U BLD (test code = 3257) Trace Negative - Negati ve [facility] URINAL[facility] W/O SPECIFIC [id number] 15:50:00* Test Item Value Reference Range Interpretation Comme nts POCT PH U (test code = 3254) 5 mg/dl 5-8 POCT U LEUK EST (test code = 3263) 1+ Negative - Negative POCT U NIT (test code = 3262) Neg Negative - Negati ve POCT U PROT (test code = 3259) Trace Negative - Negat fortino POCT U GLU (test code = 3256) Neg Negative - Negati ve POCT U KETONE (test code = 3258) Small Negative - Neg ative POCT U BLD (test code = 3257) Trace Negative - Negati ve [facility] [id number] 14:10:00* Test Item Value Reference Range Interpretation Comme nts POCT PREG (test code = 1605) Negative On board controls acceptable with C Line (test code = 3574) Yes POCT PREG LOT # (test code = 3575) POCT PREG TEST DATE ( test code = 3576) [facility]
[2024-11-27 16:36] LABS: Absolute Basophils 0.1 K/uL (0-0.5); Absolute Eosinophils 0.2 K/uL (0-0.5); Absolute Lymphocytes (CBC) 1.6 K/uL (0.7-4.9); Absolute Monocytes 1.1 K/uL (0.1-1.3); Absolute Neutrophil 9.9 K/uL (1.8-8.0); Basophils % 0.7 % (0-1.3); Eosinophils % 1.4 % (0-4.4); Hematocrit 37.9 % (36.0-45.0); Hemoglobin 12.9 g/dL (12.0-15.0); Lymphocytes % 12.2 % (15.3-44.8); MCHC 34.1 g/dL (32.0-36.0); MPV 6.5 fL (7.6-11.3); Monocytes % 8.3 % (3.3-12.3); Neutrophils % 77.4 % (41.7-73.7); Platelets 266 thou/uL (152-406); RBC Red Blood Cell Count 4.46 M/uL (3.86-4.86); Red Cell Distribution Width 14.8 % (12.1-15.2)
[2024-11-27 16:55] LABS: Anion Gap 8.8 mEq/L (5.0-15.0); Potassium 3.8 mEq/L (3.5-5.1)
[2024-11-27 17:29] LABS: Influenza A Ag Negative; Influenza B Ag Negative; SARS-CoV-2 Antigen Rapid Res Negative (Negative)
--- NOTE | 2024-11-27 18:34 | RAD REPORT ---
EXAMINATION: TWO VIEW CHEST XR CLINICAL INDICATION: CHEST PAIN TECHNIQUE: 2 views of the chest was performed. COMPARISON: No prior exam. FINDINGS: The lungs are well inflated and clear. The heart is normal in size. No displaced fractures evident. IMPRESSION: No acute or significant abnormalities.
--- NOTE | 2024-11-27 18:41 | EDPHYS ---
Physician Documentation [facility] Name: Julisa Keller Age: 34 yrs Sex: Female : 1990 Arrival Date: 11/27/2024 Time: 15:36 Bed 4 Private MD: ED Physician Enzo Xiao HPI: 11/27 18:17 This 34 yrs old Female presents to ER via Ambulatory with complaints of Chest Pain. sb4 18:17 Patient states that she noticed a pain in her left lateral lower chest last night. sb4 Denies any injury. States the pain worsens with deep breaths. States that it radiates up to her left shoulder. Endorses sore throat and mild cough. Is not sure if she has had a fever. Does report fatigue, but has been working a lot. No nausea vomiting or diarrhea. Historical: - Allergies: 15:52 No Known Allergies; iw - Home Meds: 15:52 None [Active]; iw - PMHx: 15:52 Anxiety; iw - Immunization history:: Adult Immunizations not up to date. - Infectious Disease History:: Denies. - Social history:: Smoking status: Reported history of juuling and/or vaping. ROS: 18:17 Constitutional: Negative for fever, chills, and weight loss, sb4 18:17 ENT: Positive for sore throat, 18:17 Cardiovascular: Positive for chest pain, with cough, 18:17 All other systems are negative, Exam: 18:18 Constitutional: This is a well developed, well nourished patient who is awake, alert, sb4 and in no acute distress. Head/Face: Normocephalic, atraumatic. Eyes: Extra-ocular motions intact. Periorbital areas with no swelling, redness, or edema. ENT: Mucous membranes moist. Cardiovascular: Regular rate and rhythm with a normal S1 and S2. Respiratory: No increased work of breathing, no retractions or nasal flaring. Abdomen/GI: Soft, non-tender, no distension. Skin: Warm, dry with normal turgor. Normal color with no rashes, no lesions, and no evidence of cellulitis. 18:18 Respiratory: Breath sounds: are clear throughout, Vital Signs: 15:50 BP 119 / 100; Pulse 86; Resp 18; Temp 98.4; Pulse Ox 100% on R/A; Weight 102.06 kg; iw Height 5 ft. 4 in. ; Pain 6/10; 16:44 BP 129 / 84; Pulse 67; Resp 18; Pulse Ox 99% on R/A; ld1 18:03 BP 114 / 68; Pulse 72; Resp 18; Pulse Ox 100% on R/A; ld1 19:00 BP 117 / 71; Pulse 72; Resp 18; Pulse Ox 100% on R/A; ld1 15:50 Body Mass Index 38.62 (102.06 kg, 162.56 cm) iw 15:50 Pain Scale: Adult iw MDM: 15:49 Medical Screening Exam initiated sb4 18:39 Data reviewed: vital signs, nurses notes, lab test result(s), EKG, radiologic studies, sb4 and as a result, I will discharge patient. Counseling: I had a detailed discussion with the patient and/or guardian regarding the historical points, exam findings, and any diagnostic results supporting the discharge/admit diagnosis, lab results, radiology results, the need for outpatient follow up, for definitive care, to return to the emergency department if symptoms worsen or persist or if there are any questions or concerns that arise at home. 11/27 16:11 Order name: COVID-19 Ag + Flu A+B Ag; Complete Time: 17:39 sb4 11/27 16:11 Order name: Group A Streptococcus Rapid; Complete Time: 17:39 sb4 11/27 16:12 Order name: Basic Metabolic Panel; Complete Time: 16:57 sb4 11/27 16:12 Order name: CBC with Diff; Complete Time: 16:39 sb4 11/27 16:12 Order name: Troponin HS; Complete Time: 16:57 sb4 11/27 17:31 Order name: Throat Culture EDMN 11/27 16:11 Order name: Chest Pa And Lat (2 Views) XRAY; Complete Time: 18:34 sb4 11/27 16:12 Order name: EKG; Complete Time: 16:13 sb4 11/27 16:12 Order name: Cardiac monitoring; Complete Time: 16:35 sb4 11/27 16:12 Order name: EKG - Nurse/Tech; Complete Time: 16:35 sb4 11/27 16:12 Order name: IV Saline Lock; Complete Time: 16:28 sb4 11/27 16:12 Order name: Labs collected and sent; Complete Time: 16:28 sb4 11/27 16:12 Order name: O2 Per Protocol; Complete Time: 16:33 sb4 11/27 16:12 Order name: O2 Sat Monitoring; Complete Time: 16:33 sb4 11/27 16:51 Order name: Labs - recollect needed: recollect strep swab; Complete Time: 17:06 bd EC:14 Rate is 74 beats/min. Rhythm is regular, Normal Sinus Rhythm. MS interval is normal at sb4 138 msec. QRS interval is normal at 82 msec. QT interval is normal at 368 msec. No Q waves. T waves are Normal. No ST changes noted. Clinical impression: Normal ECG. Interpreted by me. Reviewed by me. Administered Medications: No medications were administered Disposition: 19:48 Co-signature as Attending Physician, Enzo Xiao MD I reviewed the patient's care [id number] provided by the Advanced Practice Provider and agree with the diagnosis and treatment plan. Disposition Summary: 11/27/24 18:40 Discharge Ordered Notes: Location: Home sb4 Problem: new sb4 Symptoms: have improved sb4 Condition: Stable sb4 Diagnosis - Chest pain, unspecified sb4 - Pleurisy sb4 - Acute pharyngitis, unspecified sb4 Followup: sb4 - With: Emergency Department - When: As needed - Reason: Trouble breathing, Worsening of condition Discharge Instructions: - Discharge Summary Sheet sb4 - Nonspecific Chest Pain, Adult, [id number] sb4 - Pharyngitis, [id number] sb4 - Pleurisy, [id number] sb4 Forms: - Antibiotic Education sb4 - Patient Portal Instructions sb4 - Leadership Thank You Letter sb4 Prescriptions: - Zithromax Z-Tobias 250 mg Oral Tablet - take 1 tablet ORAL route as directed for 5 days Day 1 - take two (2) tablets sb4 one time. Day 2, 3, 4 , 5 take one (1) tablet once daily.; 6 tablet; Refills: 0, Product Selection Permitted - Prednisone 20 mg Oral Tablet - take 2 tablets ORAL route once daily for 5 days; 10 tablet; Refills: 0, Product sb4 Selection Permitted Signatures: Dispatcher [facility] EDMN Wendy Bartlett Irene, RN RN iw Brown, Sophia, PA-C PA-C sb4 Enzo Xiao, MD PADGETT jj9
--- NOTE | 2024-11-27 18:41 | ER ---
Nurse's Notes [facility] Name: Julisa Keller Age: 34 yrs Sex: Female : 1990 Arrival Date: 11/27/2024 Time: 15:36 Bed 4 Private MD: Diagnosis: Chest pain, unspecified;Pleurisy;Acute pharyngitis, unspecified Presentation: 11/27 15:50 Chief complaint: Patient states: pain under left breast , sharp pains radiating to left iw shoulder , started last night , worse when taking a deep breath. Coronavirus screen: At this time, the client does not indicate any symptoms associated with coronavirus-19. Ebola Screen: No symptoms or risks identified at this time. Initial Sepsis Screen: Does the patient meet any 2 criteria? No. Patient's initial sepsis screen is negative. Does the patient have a suspected source of infection? No. Patient's initial sepsis screen is negative. Risk Assessment: Do you want to hurt yourself or someone else? Patient reports no desire to harm self or others. Onset of symptoms was November 26, 2024. 15:50 Method Of Arrival: Ambulatory iw 15:50 Acuity: CHRISTI 3 iw Historical: - Allergies: 15:52 No Known Allergies; iw - Home Meds: 15:52 None [Active]; iw - PMHx: 15:52 Anxiety; iw - Immunization history:: Adult Immunizations not up to date. - Infectious Disease History:: Denies. - Social history:: Smoking status: Reported history of juuling and/or vaping. Screenin:44 [facility] ED Fall Risk Assessment (Adult) History of falling in the last 3 months, ld1 including since admission No falls in past 3 months (0 pts) Confusion or Disorientation No (0 pts) Intoxicated or Sedated No (0 pts) Impaired Gait No (0 pts) Mobility Assist Device Used No (0 pt) Altered Elimination No (0 pt) Score/Fall Risk Level 0 - 2 = Low Risk Oriented to surroundings, Hourly rounding (assess needs \T\ fall precautionary measures) done. Abuse screen: Denies threats or abuse. Denies injuries from another. Nutritional screening: No deficits noted. Tuberculosis screening: No symptoms or risk factors identified. Assessment: 16:44 General: Appears in no apparent distress. comfortable, Behavior is calm, cooperative, ld1 appropriate for age. Pain: Denies pain. Neuro: Level of Consciousness is awake, alert, obeys commands, Oriented to person, place, time, situation, Appropriate for age. Cardiovascular: Capillary refill < 3 seconds Patient's skin is warm and dry. Rhythm is sinus rhythm. Respiratory: Airway is patent Respiratory effort is even, unlabored, Breath sounds are clear bilaterally. GI: Abdomen is flat, non-distended. : No signs and/or symptoms were reported regarding the genitourinary system. EENT: No signs and/or symptoms were reported regarding the EENT system. Derm: No signs and/or symptoms reported regarding the dermatologic system. Musculoskeletal: No signs and/or symptoms reported regarding the musculoskeletal system. Vital Signs: 15:50 BP 119 / 100; Pulse 86; Resp 18; Temp 98.4; Pulse Ox 100% on R/A; Weight 102.06 kg; iw Height 5 ft. 4 in. ; Pain 6/10; 16:44 BP 129 / 84; Pulse 67; Resp 18; Pulse Ox 99% on R/A; ld1 18:03 BP 114 / 68; Pulse 72; Resp 18; Pulse Ox 100% on R/A; ld1 19:00 BP 117 / 71; Pulse 72; Resp 18; Pulse Ox 100% on R/A; ld1 15:50 Body Mass Index 38.62 (102.06 kg, 162.56 cm) iw 15:50 Pain Scale: Adult iw ED Course: 15:38 Patient arrived in ED. mr 15:49 Rox[facility] Landers [facility]. sb4 15:49 Enzo Xiao MD is Attending Physician. sb4 15:52 Triage completed. iw 15:53 Arm band placed on. iw 16:28 Basic Metabolic Panel Sent. bc6 16:28 CBC with Diff Sent. bc6 16:28 Troponin HS Sent. bc6 16:28 Initial lab(s) drawn, by me, sent to lab. Inserted saline lock: 20 gauge in left bc6 antecubital area, using aseptic technique. Blood collected. Flushed with 10 mL NS. 16:44 Jennifer Hanley, RN is Primary Nurse. ld1 16:44 Patient has correct armband on for positive identification. Placed in gown. Bed in low ld1 position. Call light in reach. Side rails up X2. conservation worker on. Pulse ox on. NIBP on. Door closed. Noise minimized. Warm blanket given. 16:44 Group A Streptococcus Rapid Sent. bc6 16:44 COVID-19 Ag + Flu A+B Ag Sent. bc6 16:44 No provider procedures requiring assistance completed. ld1 18:30 Chest Pa And Lat (2 Views) XRAY In Process Unspecified. EDMS 19:01 IV discontinued, intact, bleeding controlled, No redness/swelling at site. ld1 Administered Medications: No medications were administered Medication: 16:44 VIS not applicable for this client. ld1 Outcome: 18:40 Discharge ordered by MD. sb4 19:01 Discharged to home ambulatory, ld1 19:01 Condition: stable 19:01 Discharge instructions given to patient, Instructed on discharge instructions, follow up and referral plans. medication usage, Demonstrated understanding of instructions, follow-up care, medications, 19:01 Patient left the ED. ld1 Signatures: Dispatcher [employer] EDNY Mariangel Hearn, Reg Reg mr Maryann Chao, RN CAYETANO iw Jennifer Hanley RN RN ld1 Roxana Landers, PA-C PA-C sb4 Nikki Neal bc6
[2024-11-28 00:35] VITALS: TEMP 98.4
[2024-11-28 00:46] VITALS: O2SAT 100
[2024-11-28 00:48] VITALS: BP 117/71
--- NOTE | 2024-11-28 12:29 | EKG ---
Test Date: 2024-11-27 Test Time: 16:01:42 Coal Trimmer: GERTRUDIS MEASUREMENT RESULTS: Intervals: Rate: 74 ME: 138 QRSD: 82 QT: 368 QTc: 408 [place]: P: 22 ME: 138 QRS: 60 T: 52 INTERPRETIVE STATEMENTS: Normal sinus rhythm with sinus arrhythmia Normal ECG Compared to ECG 04/02/2021 01:07:37 No significant changes Electronically Signed On 11-28-24 12:25:33 CDT by Giovanni Retana
== END 2024-11-27 19:01 | disposition home or self-care (01) ==
LOC: ER 15:36
DX: R09.1 Pleurisy (principal); J02.9 Acute pharyngitis, unspecified; Z11.52 Encounter for screening for COVID-19
CPT/HCPCS: 36415; 71046; 80048; 84484; 85025; 87070; 87428; 93005